=== PATIENT | female | born 1950 | race Caucasian/White ===

== ENCOUNTER 2017-04-25 10:37 | Inpatient (IN) ==
--- NOTE | 2017-04-25 11:00 | Emergency Department Note ---
Disposition Clinical Impression: Pleural effusion, Hypoxemia, Delirium Pneumonia Qualifiers: Pneumonia type: due to unspecified organism Laterality: right Lung location: lower lobe of lung Qualified Code(s): J18.1 - Lobar pneumonia, unspecified organism Disposition: Admitted As Inpatient Condition: Fair Referrals: Justin Chua DO [Primary Care Provider] - Forms: ED Satisfaction Letter Time of Disposition: 12:56 General Adult HPI - General Chief complaint: ED Psychiatric Symptoms Stated complaint: Hallucination Time Seen by Provider: 04/25/17 10:46 Source: patient, family Limitations: no limitations Nursing Notes Reviewed: Yes Vital Signs Reviewed: Yes - History of Present Illness HPI Narrative: Patient is a 67-year-old female who presents to [facility] ED with a chief complaint of seeing things. Patient's family is present with her and is concerned that this has been worsening over the last 3-4 weeks. She has had this for over the last 6 months. Patient has been seeing bugs on her ventilator and then sees and inks there are people who are present who are giving her medications who are not in the house. She has had her daughter-in- law in search of someone hiding in the house. Denies any nausea, vomiting, fever or chills. No difficulty breathing, chest pain, abdominal pain. Patient has had prior urinary tract infections which have caused her to make her see things as well. She was seen by her primary care physician today who was concerned for possible urinary tract infection and had her sent over for evaluation. No history of psychiatric diagnosis. Onset (ago): month(s) Pain Scale: 0 Improves with: nothing Worsens with: nothing Associated symptoms: Reports: confusion, cough (mild). Denies: fever/chills, nausea/vomiting, shortness of breath, weakness Treatments Prior to Arrival: none - Related Data Home Medications Medication Instructions Recorded Confirmed Simvastatin 10 mg PO DAILY 06/18/15 04/25/17 SitaGLIPtin [Januvia] 100 mg PO DAILY 06/18/15 04/25/17 metFORMIN [Glucophage] 1,000 mg PO BIDWM 06/18/15 04/25/17 Amlodipine Besylate 10 mg PO DAILY 04/25/17 04/25/17 Aspirin 325 mg PO DAILY 04/25/17 04/25/17 Bupivacaine 0.5% [Marcaine 0.5%] 0.89 mg IT DAILY 04/25/17 04/25/17 Buspirone HCl [Buspar] 10 mg PO BID 04/25/17 04/25/17 Citalopram Hydrobromide 10 mg PO DAILY 04/25/17 04/25/17 [Citalopram HBr] Furosemide [Lasix] 40 mg PO BID 04/25/17 04/25/17 Ipratropium [place] 2 spr NS BID 04/25/17 04/25/17 Metoprolol [Lopressor] 12.5 mg PO BID 04/25/17 04/25/17 Morphine Sulfate/Pf [Morphine 1.79 mg IT DAILY 04/25/17 04/25/17 IntraThecdal Pump] Nitrofurantoin [Macrodantin] 50 mg PO Q6HR 04/25/17 04/25/17 Potassium Chloride [K-Tab ER] 20 meq PO BID 04/25/17 04/25/17 Venlafaxine XR (24 HR) [Effexor XR] 150 mg PO BID 04/25/17 04/25/17 Allergies Allergy/AdvReac Type Severity Reaction Status Date / Time Sulfa (Sulfonamide Allergy Swelling Verified 06/18/15 11:26 Antibiotics) of Lip/Tongue/Throat All systems ED: reviewed and negative except as stated. Past Medical History - Past Medical History Attestation: Yes The following information was validated with the patient. Source: patient Medical history: Reports: coronary artery disease, diabetes, hypertension, other Surgical history: Reports: hysterectomy Psychiatric history: Reports: depression, panic disorder INTELLIGENCE INTERN history: Reports: no INTELLIGENCE INTERN history - Social History Smoking Status: Never smoker Smokeless Tobacco Status: No Alcohol use: Reports: none Drug use: Reports: none Physical Exam - General Limitations: no limitations General appearance: alert - Head Head exam: atraumatic, normocephalic, normal inspection - Eye Eye exam: Present: normal appearance, PERRL, EOMI - ENT ENT exam: normal exam, normal oropharynx, mucous membranes moist - Neck Neck exam: Present: normal inspection, full ROM, trachea midline - Chest Chest inspection: Present: normal inspection, symmetric chest wall rise - Respiratory Respiratory exam: Present: normal lung sounds bilaterally - Cardiovascular Cardiovascular exam: Present: regular rate, normal rhythm, normal heart sounds - Abdominal Exam Abdominal exam: Present: soft, Non-Tender. Absent: tenderness, distention, guarding, rebound, rigidity - Extremities Exam Extremities exam: Present: normal inspection, full ROM. Absent: tenderness, pedal edema - Back Exam Back exam: Present: normal inspection, full ROM. Absent: tenderness - Neurological Exam Neurological exam: Present: alert. Absent: motor sensory deficit - Psychiatric Psychiatric exam: Present: normal affect, normal mood - Skin Skin exam: Present: warm, dry, intact, normal color Course Course Narrative: Patient seen and examined. Concern for hallucinations. Patient may also have a degree of dementia that is developing. Her course has been worsening over the last several months and particularly over the last several weeks. This may be exacerbated by possible infection. We will check some basic labs, urine analysis, chest x-ray. - Reevaluation(s) Reevaluation #1: Patient's lab work shows anemia the patient is on iron supplementation to help with this. She is hemodynamically stable. Her chest x-ray shows signs of a right-sided pneumonia and right sided pleural effusion. We will place her on IV antibiotics for this. We will give her some Rocephin and azithromycin. Due to patient's hypoxemia with her being at 88% on room air, we will go ahead and admit her for observation. I discussed with hospitalist Dr. Schuster who has accepted her for admission. He would like a flu swab. This has been ordered. Time: 12:58 Vital Signs Temperature 98.8 F 04/25/17 10:40 Pulse Rate 87 04/25/17 10:40 Respiratory Rate 18 04/25/17 10:40 Blood Pressure 145/62 04/25/17 10:40 O2 Sat by Pulse Oximetry 93 04/25/17 10:40 Temperature 98.8 F 04/25/17 10:40 Pulse Rate 87 04/25/17 10:40 Respiratory Rate 18 04/25/17 10:40 Blood Pressure 145/62 04/25/17 10:40 O2 Sat by Pulse Oximetry 93 04/25/17 10:40 Oxygen Delivery Oxygen Delivery Room Air Medical Decision Making - Medical Records Medical records reviewed: Yes I reviewed the patient's medical records. - Lab Data Lab results reviewed: Yes I reviewed the patient's lab results. Result diagrams: 04/25/17 11:11 04/25/17 11:11 Lab Results 04/25/17 04/25/17 Range/Units 11:11 11:11 WBC 7.5 (4.3-11.1) K/mcL RBC 3.75 L (3.82-4.97) M/mcL Hgb 8.2 L (11.5-15.4) g/dL Hct 29.3 L (35.3-44.9) % MCV 78.1 L (83.0-100.0) fL MCH 21.9 L (28.0-33.3) pg MCHC 28.0 L (31.6-35.5) g/dL RDW 18.9 H (11.5-14.5) % Plt Count 388 (140-400) K/mcL MPV 9.5 (9.4-12.4) fL Immature Gran % 0.3 (0-4) % Seg Neutrophils % 70.7 % Lymphocytes % 21.2 % Monocytes % 5.6 % Eosinophils % 1.9 % Basophils % 0.3 % Neutrophils # 5.3 (1.6-8.9) K/mcL Lymphocytes # 1.6 (0.6-4.6) K/mcL Monocytes # 0.4 (0.0-1.3) K/mcL Eosinophils # 0.1 (0.0-0.6) K/mcL Basophils # 0.0 (0.0-0.2) K/mcL Platelet Estimate Normal (Normal) Hypochromasia Present A (Not Present) Anisocytosis 1+ A (Not Present) Sodium 134 L (136-145) mEq/L Potassium 4.1 (3.5-5.1) mEq/L Chloride 98 (98-107) mEq/L Carbon Dioxide 29 (23-29) mEq/L Calcium 9.8 (8.6-10.3) mg/dL - Radiology Data Radiology results reviewed: Yes I reviewed the patient's radiology results. Chest X-Ray 04/25/17 11:12 IMPRESSION: New prominence of the interstitial markings within both lungs which may represent an infectious process versus interstitial edema. New small right pleural effusion which could be secondary to a small right lower lobe pneumonia. D/ / 04/25/2017 11:35:11 Tyrel Epps MD / devi Interpreting Provider: Tyrel Epps MD Chest X-Ray 04/25/17 11:12 IMPRESSION: New prominence of the interstitial markings within both lungs which may represent an infectious process versus interstitial edema. New small right pleural effusion which could be secondary to a small right lower lobe pneumonia. D/ / 04/25/2017 11:35:11 Tyrel Epps MD / devi Interpreting Provider: Tyrel Epps MD Head CT 04/25/17 11:18 IMPRESSION: No acute intracranial abnormality. Diffuse atrophic changes with findings suggesting chronic microvascular ischemia D/ / Devin Alberts MD / Devin Alberts MD Interpreting Provider: Devin Alberts MD
--- NOTE | 2017-04-25 11:18 | Emergency Department Note ---
Disposition Clinical Impression: Pneumonia, Pleural effusion, Hypoxemia, Delirium Disposition: Admitted As Inpatient Condition: Fair General Adult HPI - General Chief complaint: ED Psychiatric Symptoms Stated complaint: Hallucination Time Seen by Provider: 04/25/17 10:46 Source: patient, family Limitations: no limitations Nursing Notes Reviewed: Yes Vital Signs Reviewed: Yes - History of Present Illness Pain Scale: 0 - Related Data Home Medications Medication Instructions Recorded Confirmed Simvastatin 10 mg PO DAILY 06/18/15 04/25/17 SitaGLIPtin [Januvia] 100 mg PO DAILY 06/18/15 04/25/17 metFORMIN [Glucophage] 1,000 mg PO BIDWM 06/18/15 04/25/17 Amlodipine Besylate 10 mg PO DAILY 04/25/17 04/25/17 Aspirin 325 mg PO DAILY 04/25/17 04/25/17 Bupivacaine 0.5% [Marcaine 0.5%] 0.89 mg IT DAILY 04/25/17 04/25/17 Buspirone HCl [Buspar] 10 mg PO BID 04/25/17 04/25/17 Citalopram Hydrobromide 10 mg PO DAILY 04/25/17 04/25/17 [Citalopram HBr] Furosemide [Lasix] 40 mg PO BID 04/25/17 04/25/17 Ipratropium [place] 2 spr NS BID 04/25/17 04/25/17 Metoprolol [Lopressor] 12.5 mg PO BID 04/25/17 04/25/17 Morphine Sulfate/Pf [Morphine 1.79 mg IT DAILY 04/25/17 04/25/17 IntraThecdal Pump] Nitrofurantoin [Macrodantin] 50 mg PO Q6HR 04/25/17 04/25/17 Potassium Chloride [K-Tab ER] 20 meq PO BID 04/25/17 04/25/17 Venlafaxine XR (24 HR) [Effexor XR] 150 mg PO BID 04/25/17 04/25/17 Allergies Allergy/AdvReac Type Severity Reaction Status Date / Time Sulfa (Sulfonamide Allergy Swelling Verified 06/18/15 11:26 Antibiotics) of Lip/Tongue/Throat Past Medical History - Past Medical History Medical history: Reports: coronary artery disease, diabetes, hypertension, other Surgical history: Reports: hysterectomy Psychiatric history: Reports: depression, panic disorder HUMAN RELATIONS PROFESSOR history: Reports: no HUMAN RELATIONS PROFESSOR history - Social History Smoking Status: Never smoker Smokeless Tobacco Status: No Alcohol use: Reports: none Drug use: Reports: none Physical Exam - General Limitations: no limitations General appearance: alert Course Vital Signs Temperature 98.8 F 04/25/17 10:40 Pulse Rate 87 04/25/17 10:40 Respiratory Rate 18 04/25/17 10:40 Blood Pressure 145/62 04/25/17 10:40 O2 Sat by Pulse Oximetry 93 04/25/17 10:40 Temperature 98.2 F 04/25/17 14:55 Pulse Rate 85 04/25/17 14:55 Respiratory Rate 17 04/25/17 14:55 Blood Pressure 116/60 04/25/17 14:55 O2 Sat by Pulse Oximetry 96 04/25/17 14:55 Oxygen Delivery Oxygen Delivery Room Air Medical Decision Making - MDM Narrative Medical decision making narrative: This documentation is done with the assistance of Dragon dictation. Despite efforts made to ensure accuracy, there may be inaccuracies in food and nutrition services supervisor or spelling and typographical errors. I examined this patient and my medical decision-making was reviewed with the Resident Physician. I agree with the documented findings, disposition and treatment plan as described except to the extent set forth below. Patient was seen and evaluated by Dr. Greenberg and myself, I agree with her evaluation and management plan, supervise care the patient's stay. Patient presents today with worsening dementia versus delirium. History of this going on for about 6 months gotten worse or last couple weeks. Also has a history of UTI in the past. She is a little bit of a cough. Check labs urine and a chest x-ray. She does not have any recent trauma does not have any headaches. Does not any acute neuro deficits. Someone hold off on CT at this time and see if she has had a recent CT. Family is in agreement with this plan. Chest X-Ray 04/25/17 11:12 IMPRESSION: New prominence of the interstitial markings within both lungs which may represent an infectious process versus interstitial edema. New small right pleural effusion which could be secondary to a small right lower lobe pneumonia. D/ / 04/25/2017 11:35:11 Tyrel Epps MD / devi Interpreting Provider: Tyrel Epps MD Head CT 04/25/17 11:18 IMPRESSION: No acute intracranial abnormality. Diffuse atrophic changes with findings suggesting chronic microvascular ischemia D/ / Devin Alberts MD / Devin Alberts MD Interpreting Provider: Devin Alberts MD 1154 hrs.: Patient had an EKG performed which shows a sinus rhythm, rate is 84, QRS is 101, QTC is 439, no signs of ischemia, flipped conflict flexes in lead 3 , has an old EKG that was done in 2016 which shows no changes except for rate. 1155 hrs.: We will treat her as a pneumonia. Start her on antibiotics and then discuss with family admission. - Lab Data Result diagrams: 04/25/17 11:11 04/25/17 11:11 Lab Results 04/25/17 04/25/17 04/25/17 Range/Units 11:08 11:11 11:11 WBC 7.5 (4.3-11.1) K/mcL RBC 3.75 L (3.82-4.97) M/mcL Hgb 8.2 L (11.5-15.4) g/dL Hct 29.3 L (35.3-44.9) % MCV 78.1 L (83.0-100.0) fL MCH 21.9 L (28.0-33.3) pg MCHC 28.0 L (31.6-35.5) g/dL RDW 18.9 H (11.5-14.5) % Plt Count 388 (140-400) K/mcL MPV 9.5 (9.4-12.4) fL Immature Gran % 0.3 (0-4) % Seg Neutrophils % 70.7 % Lymphocytes % 21.2 % Monocytes % 5.6 % Eosinophils % 1.9 % Basophils % 0.3 % Neutrophils # 5.3 (1.6-8.9) K/mcL Lymphocytes # 1.6 (0.6-4.6) K/mcL Monocytes # 0.4 (0.0-1.3) K/mcL Eosinophils # 0.1 (0.0-0.6) K/mcL Basophils # 0.0 (0.0-0.2) K/mcL Platelet Estimate Normal (Normal) Hypochromasia Present A (Not Present) Anisocytosis 1+ A (Not Present) Sodium 134 L (136-145) mEq/L Potassium 4.1 (3.5-5.1) mEq/L Chloride 98 (98-107) mEq/L Carbon Dioxide 29 (23-29) mEq/L BUN 18 (8-23) mg/dL Creatinine 0.72 (0.60-1.20) mg/dL Est GFR ( Amer) > 60 (> 60) Est GFR (Non-Af Amer) > 60 (> 60) BUN/Creatinine Ratio 25 (6-26) Glucose 159 H (70-105) mg/dL Calculated Osmolality 283 (280-300) Calcium 9.8 (8.6-10.3) mg/dL Iron 44 L (50-170) mcg/dL % Saturation 9 L (15-50) % Transferrin 341 (203-362) mg/dL Ferritin 43 (10-120) ng/ml B-Natriuretic Peptide (Less than 100) pg/mL Vitamin B12 (250-1100) pg/mL Folate (3.0-16.0) ng/mL TSH 2.216 (0.340-5.600) mcIU/mL Urine Color Yellow (Yellow) Urine Clarity Clear (Clear) Urine pH 6.5 (5.0-8.0) pH Units Ur Specific [place] 1.015 (1.010-1.025) Urine Protein Negative (Neg-Trace) mg/dL Urine Glucose (UA) Normal (Normal) mg/dL Urine Ketones Negative (Negative) mg/dL Urine Blood Negative (Negative) Urine Nitrite Negative (Negative) Urine Bilirubin Negative (Negative) Urine Urobilinogen Normal (Normal) mg/dL Ur Leukocyte Esterase Negative (Negative) Ur Culture Indicated? NO (NO) 04/25/17 04/25/17 Range/Units 11:11 11:11 WBC (4.3-11.1) K/mcL RBC (3.82-4.97) M/mcL Hgb (11.5-15.4) g/dL Hct (35.3-44.9) % MCV (83.0-100.0) fL MCH (28.0-33.3) pg MCHC (31.6-35.5) g/dL RDW (11.5-14.5) % Plt Count (140-400) K/mcL MPV (9.4-12.4) fL Immature Gran % (0-4) % Seg Neutrophils % % Lymphocytes % % Monocytes % % Eosinophils % % Basophils % % Neutrophils # (1.6-8.9) K/mcL Lymphocytes # (0.6-4.6) K/mcL Monocytes # (0.0-1.3) K/mcL Eosinophils # (0.0-0.6) K/mcL Basophils # (0.0-0.2) K/mcL Platelet Estimate (Normal) Hypochromasia (Not Present) Anisocytosis (Not Present) Sodium (136-145) mEq/L Potassium (3.5-5.1) mEq/L Chloride (98-107) mEq/L Carbon Dioxide (23-29) mEq/L BUN (8-23) mg/dL Creatinine (0.60-1.20) mg/dL Est GFR ( Amer) (> 60) Est GFR (Non-Af Amer) (> 60) BUN/Creatinine Ratio (6-26) Glucose (70-105) mg/dL Calculated Osmolality (280-300) Calcium (8.6-10.3) mg/dL Iron (50-170) mcg/dL % Saturation (15-50) % Transferrin (203-362) mg/dL Ferritin (10-120) ng/ml B-Natriuretic Peptide 294 H (Less than 100) pg/mL Vitamin B12 458 (250-1100) pg/mL Folate 16.7 H (3.0-16.0) ng/mL TSH (0.340-5.600) mcIU/mL Urine Color (Yellow) Urine Clarity (Clear) Urine pH (5.0-8.0) pH Units Ur Specific [place] (1.010-1.025) Urine Protein (Neg-Trace) mg/dL Urine Glucose (UA) (Normal) mg/dL Urine Ketones (Negative) mg/dL Urine Blood (Negative) Urine Nitrite (Negative) Urine Bilirubin (Negative) Urine Urobilinogen (Normal) mg/dL Ur Leukocyte Esterase (Negative) Ur Culture Indicated? (NO)
[2017-04-25 11:20] LABS: Basophils % 0.3 %
[2017-04-25 11:21] LABS: Eosinophils # 0.1 K/mcL (0.0-0.6); Eosinophils % 1.9 %; Hematocrit 29.3 % (35.3-44.9); Hemoglobin 8.2 g/dL (11.5-15.4); Immature Granulocytes % 0.3 % (0-4); Lymphocytes # 1.6 K/mcL (0.6-4.6); Lymphocytes % 21.2 %; Mean Corpuscular Hemoglobin 21.9 pg (28.0-33.3); Mean Corpuscular Volume 78.1 fL (83.0-100.0); Mean Platelet Volume 9.5 fL (9.4-12.4); Monocytes # 0.4 K/mcL (0.0-1.3); Monocytes % 5.6 %; Neutrophils # 5.3 K/mcL (1.6-8.9); Platelet Count 388 K/mcL (140-400); Red Blood Count 3.75 M/mcL (3.82-4.97); Red Cell Distribution Width 18.9 % (11.5-14.5); Segmented Neutrophils % 70.7 %
[2017-04-25 11:24] LABS: Anisocytosis 1+ (Not Present); Hypochromasia Present (Not Present); Platelet Estimate Normal (Normal)
[2017-04-25 11:33] LABS: Calcium 9.8 mg/dL (8.6-10.3); Carbon Dioxide 29 mEq/L (23-29); Chloride 98 mEq/L (98-107); Potassium 4.1 mEq/L (3.5-5.1); Sodium 134 mEq/L (136-145)
[2017-04-25 11:34] LABS: Bilirubin,Urine Negative (Negative); Blood,Urine Negative (Negative); Clarity,Urine Clear (Clear); Color,Urine Yellow (Yellow); Glucose,Urine (UA) Normal (Normal); Ketones,Urine Negative (Negative); Leukocyte Esterase,Urine Negative (Negative); Nitrite,Urine Negative (Negative); PH,Urine 6.5 pH Units (5.0-8.0); Protein,Urine Negative (Neg-Trace); Specific Gravity,Urine 1.015 (1.010-1.025); Urobilinogen,Urine Normal (Normal)
[2017-04-25 11:38] LABS: BUN/Creatinine Ratio 25 (6-26); Blood Urea Nitrogen 18 mg/dL (8-23); Glucose 159 mg/dL (70-105); Osmolality,Calculated 283 (280-300); eGFR For African Americans > 60 (> 60); eGFR For Non-African Americans > 60 (> 60)
[2017-04-25] MEDS ORDERED: cefTRIAXone 1,000 MG in Water for inj. (sterile) 20 ML 10 ML IVP ONE (11:41)
[2017-04-25] MEDS ORDERED: Azithromycin 500 MG in D5% in Water 250 ML IVPB ONE (11:43)
[2017-04-25] MEDS ORDERED: Ipratropium/Albuterol Neb 3 ML IH ONE (11:51)
[2017-04-25] MEDS ORDERED: Dextrose Gel 15 GM/37.5 ML TUBE PO PRN ×4 (12:48→15:00)
[2017-04-25] MEDS ORDERED: *HR* Dextrose 50 % in Water (Syg) 50 ML SYRINGE IVP PRN ×2 (12:48→15:00)
[2017-04-25] MEDS ORDERED: D5% in Water 1,000 ML IVC PRN ×2 (12:48→15:00)
--- NOTE | 2017-04-25 12:53 | Internal Med History&Physical ---
Date of Encounter: 04/26/17 Time of Encounter: 12:51 Assessment and Plan (1) Acute on chronic respiratory failure with hypoxemia Current visit: Yes Status: Acute Possibly from pneumonia with some component of CHF due to finding of pleural effusions. We will admit the patient and treat for pneumonia/acute bronchitis/ pleural effusion. Treatment will be as below. (2) Pneumonia Current visit: Yes Status: Acute We will start the patient on Levaquin. Rule out influenza. Check urine strep and Legionella. The patient is on CPAP at night and is on intermittent 2 L O2 via nasal cannula at home. She was 88% on room air. We will apply oxygen as needed and wean down as tolerated. We will add nebulizers. Follow-up on blood cultures. Check sputum culture if possible. Qualifiers: Pneumonia type: due to unspecified organism Laterality: right Lung location: lower lobe of lung Qualified Code(s): J18.1 - Lobar pneumonia, unspecified organism (3) Pleural effusion Current visit: Yes Status: Acute Patient is on Lasix at home. Says she was put on it for some pleural effusions in the past. Unsure of history of CHF. Will check BNP. Check an echocardiogram. Will give a dose of 40 mg IV Lasix and evaluate in the morning for more. (4) Acute encephalopathy Current visit: Yes Status: Acute Patient seems to have had similar presentation in the past due to infectious etiology. We will continue to monitor and treat causes as above. Check TSH, vitamin B12 as well. CT head was unremarkable. I did explain to the daughters that since the symptoms have been going on for months, that it would be best if she saw a neurologist and get formal testing for dementia. I did tell them that we will treat her infection for now but they should not expect complete resolution of mental status over the next 2 days while she is here. The patient is alert to name, place, month, and year but not exact date. (5) Anemia Current visit: Yes Status: Acute Hemoglobin 8.2 today. Usually it gets around 10-11. No signs of bleeding. Check stools FOBT. Check iron studies. Hemodynamically stable. Qualifiers: Anemia type: unspecified type Qualified Code(s): D64.9 - Anemia, unspecified (6) Diabetes mellitus Current visit: No Status: Chronic We will start the patient insulin sliding scale. Continue with Accu-Cheks. Diabetic diet. 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 UA is clean here. Levaquin should cover either way Qualifiers: Urinary tract infection type: acute cystitis Hematuria presence: without hematuria Qualified Code(s): N30.00 - Acute cystitis without hematuria (10) DVT prophylaxis Current visit: Yes Status: Acute Heparin subcutaneous Internal Medicine - H&P: HPI Chief complaint: Delirium Admitted From: Home Plans for Post Hospital Care: Home History of present illness: Ms. Hughes is a 67 year old female with history of diabetes, hypertension, pleural effusions, hyperlipidemia, anxiety presents to [facility] ED with a chief complaint of seeing things. This seems to have been a chronic issue but family thinks it is worse now. They describe hallucination such as seeing bugs on her CPAP at home and seeing people not present in the room. She has had her [id number] in search of someone hiding in the house. No reported fever, chills, headache, blurry vision, nausea, vomiting, abdominal pain, chest pain, urinary symptoms, or neurological symptoms. When the patient presented to the ED she was noted to be hypoxic with sats of 88% on room air. She was put on 2 L to 4 L of nasal cannula oxygen with a sats jumping up to the upper 90s. Patient of note recently (in February 2017) had a bioprosthetic mitral valve replacement done in [place] and at the time needed aggressive diuresis. Family is unsure if she carries a diagnosis of CHF but she takes lasix. Her workup was mostly unremarkable but was found to have infiltrates as well as some interstitial edema and a small right plural effusion on the chest x-ray. She was given antibiotics in the ED for possible pneumonia. The patient is being admitted for acute delirium possibly from an infectious etiology. Past Med Surg Social Fam HX - Past Medical History Medical history: coronary artery disease, diabetes, hypertension, other Psychiatric history: depression, panic disorder - Past Surgical History Surgical History: hysterectomy - Social History Smoking Status: Never smoker Smokeless Tobacco Status: No Alcohol use: none Drug use: none - Family History Mother Living Status: Hx Family Cardiac Disorders: Yes Hx Family Endocrine Disorder: Yes Father Living Status: Hx Family Cancer: Yes Internal Medicine - H&P: Meds Simvastatin 10 mg PO DAILY 06/18/15 [History] SitaGLIPtin [Januvia] 100 mg PO DAILY 06/18/15 [History] metFORMIN [Glucophage] 1,000 mg PO BIDWM 06/18/15 [History] Amlodipine Besylate 10 mg PO DAILY 04/25/17 [History] Aspirin 325 mg PO DAILY 04/25/17 [History] Bupivacaine 0.5% [Marcaine 0.5%] 0.89 mg IT DAILY 04/25/17 [History] Buspirone HCl [Buspar] 10 mg PO BID 04/25/17 [History] Citalopram Hydrobromide [Citalopram HBr] 10 mg PO DAILY 04/25/17 [History] Furosemide [Lasix] 40 mg PO BID 04/25/17 [History] Ipratropium [place] 2 spr NS BID 04/25/17 [History] Metoprolol [Lopressor] 12.5 mg PO BID 04/25/17 [History] Morphine Sulfate/Pf [Morphine IntraThecdal Pump] 1.79 mg IT DAILY 04/25/17 [ History] Nitrofurantoin [Macrodantin] 50 mg PO Q6HR 04/25/17 [History] Potassium Chloride [K-Tab ER] 20 meq PO BID 04/25/17 [History] Venlafaxine XR (24 HR) [Effexor XR] 150 mg PO BID 04/25/17 [History] 3 Allergy/AdvReac Type Severity Reaction Status Date / Time Sulfa (Sulfonamide Allergy Swelling Verified 06/18/15 11:26 Antibiotics) of Lip/Tongue/Throat All Systems PM: A 10-system review of systems was performed and is negative for pertinent findings except as documented above in the HPI. Review of systems: All systems reviewed are negative except as mentioned above. - Constitutional Vitals: Temp Pulse Resp BP Pulse Ox 98.8 F 87 18 145/62 93 04/25/17 10:40 04/25/17 10:40 04/25/17 10:40 04/25/17 10:40 04/25/17 10:40 Exam: GEN: NAD. A/O x2 HEENT: AT, NC, No cyanosis, oral mucosa is moist, No JVD Lymphatics: No lymphadenoapthy Eyes: Extrocular muscles intact, anicteric CVS:RRR. S1, S2, No m/r/g RESP: bibasilar crackles. ABD: Soft, NT, ND, +BS EXT: trace edema, No rashes, 2+ DP NEURO: Nonfocal, CN II-XII intact, No focal motor or sensory deficits Psych: Cooperative, Not anxious or depressed Internal Med - H&P Results - Labs CBC & Chem 7: 04/25/17 11:11 04/25/17 11:11 Labs: Short CBC 04/25/17 Range/Units 11:11 WBC 7.5 (4.3-11.1) K/mcL Hgb 8.2 L (11.5-15.4) g/dL Hct 29.3 L (35.3-44.9) % Plt Count 388 (140-400) K/mcL Neutrophils # 5.3 (1.6-8.9) K/mcL BMP 04/25/17 11:11 Sodium 134 L Potassium 4.1 Chloride 98 Carbon Dioxide 29 BUN 18 Creatinine 0.72 Glucose 159 H Calcium 9.8 Urine 04/25/17 Range/Units 11:08 Urine Color Yellow (Yellow) Urine Clarity Clear (Clear) Urine pH 6.5 (5.0-8.0) pH Units Ur Specific [place] 1.015 (1.010-1.025) Urine Protein Negative (Neg-Trace) mg/dL Urine Glucose (UA) Normal (Normal) mg/dL - Impressions ITS Impressions Chest X-Ray 04/25/17 11:12 IMPRESSION: New prominence of the interstitial markings within both lungs which may represent an infectious process versus interstitial edema. New small right pleural effusion which could be secondary to a small right lower lobe pneumonia. D/ / 04/25/2017 11:35:11 Tyrel Epps MD / devi Interpreting Provider: Tyrel Epps MD Head CT 04/25/17 11:18 IMPRESSION: No acute intracranial abnormality. Diffuse atrophic changes with findings suggesting chronic microvascular ischemia D/ / Devin Alberts MD / Devin Alberts MD Interpreting Provider: Devin Alberts MD
[2017-04-25] MEDS ORDERED: Ipratropium/Albuterol Neb 3 ML IH PRN (12:54)
[2017-04-25] MEDS ORDERED: Furosemide 40 MG/4 ML VIAL IVP ONE (12:58)
[2017-04-25] MEDS ORDERED: *HR* HYDROcodone/Acet 5/325 mg TABLET PO PRN (13:02)
[2017-04-25] MEDS ORDERED: Naloxone 0.4 MG/ML INJ IVP PRN (13:02)
[2017-04-25] MEDS ORDERED: Acetaminophen 325 MG TABLET PO PRN (13:02)
[2017-04-25 14:07] LABS: Thyroid Stimulating Hormone 2.216 mcIU/mL (0.340-5.600)
--- NOTE | 2017-04-25 16:11 | Electrocardiograph Report ---
[facility] Test Date: 2017-04-25 Pat Name: Nilda Hughes Department: 102 Room: 2A22 Gender: F Senior Geologist: Raphael : 1950 Requested By: Terrance Berumen Order Number: [id number] Reading MD: Enzo Murillo DO Measurements Intervals [place] Rate: 84 P: 59 ND: 200 QRS: -17 QRSD: 101 T: 54 QT: 398 QTc: 439 Interpretive Statements SINUS RHYTHM Electronically Signed On 04-25-2017 16:10:05 EST by Enzo Murillo DO
[2017-04-25] MEDS: *HR* Heparin 5,000 UNIT/ML VIAL SQ SCH ×2 (16:53→20:39)
[2017-04-25] MEDS: Insulin LISPRO 300 UNITS/3 ML VIAL SQ SCH ×2 (16:54→20:38)
[2017-04-25 16:59] LABS: % Iron Saturation 9 % (15-50); Ferritin 43 ng/ml (10-120); Iron 44 mcg/dL (50-170); Transferrin 341 mg/dL (203-362)
[2017-04-25 17:04] LABS: Folate 16.7 ng/mL (3.0-16.0)
[2017-04-25] MEDS: Venlafaxine XR (24 HR) 150 MG CAP.ER.24H PO SCH (19:53)
[2017-04-26] MEDS: *HR* Heparin 5,000 UNIT/ML VIAL SQ SCH (04:34)
[2017-04-26 04:40] LABS: Basophils % 0.4 %
[2017-04-26 04:42] LABS: Eosinophils # 0.2 K/mcL (0.0-0.6); Eosinophils % 1.8 %; Hematocrit 26.3 % (35.3-44.9); Hemoglobin 7.6 g/dL (11.5-15.4); Immature Granulocytes % 0.4 % (0-4); Lymphocytes # 2.1 K/mcL (0.6-4.6); Lymphocytes % 24.7 %; Mean Corpuscular HGB Conc 28.9 g/dL (31.6-35.5); Mean Corpuscular Hemoglobin 22.1 pg (28.0-33.3); Mean Corpuscular Volume 76.5 fL (83.0-100.0); Monocytes # 0.6 K/mcL (0.0-1.3); Monocytes % 6.9 %; Neutrophils # 5.5 K/mcL (1.6-8.9); Nucleated Red Blood Cells 0.2 /100 WBC (0); Platelet Count 378 K/mcL (140-400); Red Blood Count 3.44 M/mcL (3.82-4.97); Red Cell Distribution Width 18.9 % (11.5-14.5); Segmented Neutrophils % 65.8 %
[2017-04-26 04:45] LABS: BUN/Creatinine Ratio 23 (6-26); Blood Urea Nitrogen 14 mg/dL (8-23); Calcium 9.4 mg/dL (8.6-10.3); Carbon Dioxide 30 mEq/L (23-29); Chloride 98 mEq/L (98-107); Glucose 107 mg/dL (70-105); Magnesium 2.1 mg/dL (1.6-2.6); Osmolality,Calculated 281 (280-300); Potassium 3.9 mEq/L (3.5-5.1); Sodium 135 mEq/L (136-145); eGFR For African Americans > 60 (> 60); eGFR For Non-African Americans > 60 (> 60)
[2017-04-26 05:19] LABS: Anisocytosis 1+ (Not Present); Polychromasia 1+ (Not Present); Stomatocytes 1+ (Not Present)
--- NOTE | 2017-04-26 07:35 | Internal Med Progress Note ---
Date of Encounter: 04/26/17 Time of Encounter: 10:30 - Assessment and plan (1) Acute on chronic respiratory failure with hypoxemia Current Visit: Yes Status: Acute Assessment and plan: Continue O2 supplementation. Treat underlying pneumonia. Wean FiO2 as tolerated. (2) Pneumonia Current Visit: Yes Status: Acute Assessment and plan: With parapneumonic effusion. Cultures are negative so far. WBC count remains normal. Urine strep and Legionella antigens are negative. Continue levofloxacin. Clinically patient is feeling better. Will repeat chest x-ray in 3-4 weeks to look for resolution of both pneumonia and effusion. Qualifiers: Pneumonia type: due to unspecified organism Laterality: right Lung location: lower lobe of lung Qualified Code(s): J18.1 - Lobar pneumonia, unspecified organism (3) Acute encephalopathy Current Visit: Yes Status: Acute Assessment and plan: Improved. Likely due to underlying infection (4) Anemia Current Visit: Yes Status: Suspected Assessment and plan: Anemia. Hemoglobin 7.6. Suspected iron deficiency. We will check stool for occult blood. Consult GI. Patient underwent colonoscopy several years back and had polyps. Has not had any follow-up since then. Denies any melena or hematemesis. B12 and folic acid levels within normal limits. Qualifiers: Anemia type: iron deficiency Iron deficiency anemia type: chronic blood loss Qualified Code(s): D50.0 - Iron deficiency anemia secondary to blood loss (chronic) (5) Diabetes mellitus Current Visit: Yes Status: Chronic Assessment and plan: Better control. Continue diabetic diet. Monitor blood sugars. Sliding scale insulin. Qualifiers: Diabetes mellitus type: type 2 Diabetes mellitus complication status: without complication Diabetes mellitus halfway insulin use: without joint terminal attack controller use Qualified Code(s): E11.9 - Type 2 diabetes mellitus without complications (6) H/O heart valve replacement with bioprosthetic valve Current Visit: Yes Status: Acute (7) Hypertension Current Visit: Yes Status: Chronic Assessment and plan: Blood pressure is well controlled. Qualifiers: Hypertension type: essential hypertension Qualified Code(s): I10 - Essential (primary) hypertension (8) DVT prophylaxis Current Visit: Yes Status: Acute Assessment and plan: Has been On subcutaneous heparin. We will hold at this time for possible GI bleed. Place patient on SCDs. (9) Pleural effusion Current Visit: Yes Status: Acute Assessment and plan: Possible parapneumonic effusion. Small effusion not to thoracentesis at this time. Would recommend follow-up with x-ray in 3-4 weeks to look for resolution. (10) UTI (urinary tract infection) Current Visit: Yes Status: Resolved Assessment and plan: Urinalysis shows no signs of infection. Patient was treated with Macrobid previously. Has completed treatment course. Qualifiers: Urinary tract infection type: acute cystitis Hematuria presence: without hematuria Qualified Code(s): N30.00 - Acute cystitis without hematuria - Subjective Interval history: Patient feels better today. Denies any hematemesis or melena. No nausea or vomiting. No fever or chills. Shortness of breath is improving. Does continue to have cough. - Constitutional Vitals: Temp Pulse Resp BP Pulse Ox 98.1 F 96 20 133/71 92 04/26/17 06:59 04/26/17 06:59 04/26/17 06:59 04/26/17 06:59 04/26/17 06:59 General appearance: Present: cooperative, A&O X 3, pleasant, answers questions appropriately - Cardiovascular Cardiovascular exam: Present: RRR, +S1, +S2. Absent: diastolic murmur, gallop, rubs, systolic murmur - GI/Abdominal GI/Abdominal exam: Present: normal bowel sounds, soft, no peritoneal signs. Absent: distended, tenderness - Extremities Exam Extremities exam: Present: warm, radial pulses palpable and symmetrical. Absent : calf tenderness, cyanotic, pedal edema - Neurological Exam Neurological exam: Present: CN II-XII intact, oriented X3, no focal deficits. Absent: pronater drift, facial droop, speech deficit - Skin Skin exam: Present: dry, intact, pallor Internal Medicine: Result - Labs CBC & Chem 7: 04/26/17 03:44 04/26/17 03:44 Labs: Short CBC 04/26/17 Range/Units 03:44 WBC 8.3 (4.3-11.1) K/mcL Hgb 7.6 L (11.5-15.4) g/dL Hct 26.3 L (35.3-44.9) % Plt Count 378 (140-400) K/mcL Neutrophils # 5.5 (1.6-8.9) K/mcL BMP 04/26/17 03:44 Sodium 135 L Potassium 3.9 Chloride 98 Carbon Dioxide 30 H BUN 14 Creatinine 0.61 Glucose 107 H Calcium 9.4 Consult Discharge Plan - Plan Referrals: Justin Chua DO [Primary Care Provider] -
[2017-04-26] MEDS: Insulin LISPRO 300 UNITS/3 ML VIAL SQ SCH ×4 (08:36→21:18)
[2017-04-26] MEDS: amLODIPine 5 MG TABLET PO SCH (09:20)
[2017-04-26] MEDS: Venlafaxine XR (24 HR) 150 MG CAP.ER.24H PO SCH ×2 (09:21→21:16)
[2017-04-26] MEDS: Aspirin 325 MG TABLET PO SCH (09:22)
[2017-04-26] MEDS: Levofloxacin 500 MG/100 ML 500 MG/100 ML BAG IVPB SCH (09:22)
[2017-04-26] MEDS ORDERED: Patient Taking Own Medication 1 EACH PO SCH (09:45)
[2017-04-26 16:54] LABS: Hematocrit 28.4 % (35.3-44.9)
[2017-04-26] MEDS ORDERED: Polyethylene Glycol 3350 255 GM POWDER PO ONE (17:00)
[2017-04-26] MEDS: Furosemide 40 MG TABLET PO SCH (21:18)
[2017-04-26 22:36] LABS: Hematocrit 27.4 % (35.3-44.9); Hemoglobin 7.9 g/dL (11.5-15.4)
[2017-04-27 04:19] LABS: Basophils % 0.4 %; Hemoglobin 8.4 g/dL (11.5-15.4); Immature Granulocytes % 0.3 % (0-4); Red Blood Count 3.82 M/mcL (3.82-4.97); Red Cell Distribution Width 18.9 % (11.5-14.5)
[2017-04-27 04:21] LABS: Eosinophils # 0.1 K/mcL (0.0-0.6); Eosinophils % 1.8 %; Hematocrit 29.3 % (35.3-44.9); Lymphocytes # 1.7 K/mcL (0.6-4.6); Lymphocytes % 25.7 %; Mean Corpuscular HGB Conc 28.7 g/dL (31.6-35.5); Mean Corpuscular Volume 76.7 fL (83.0-100.0); Mean Platelet Volume 9.7 fL (9.4-12.4); Monocytes # 0.5 K/mcL (0.0-1.3); Monocytes % 6.9 %; Platelet Count 406 K/mcL (140-400); Segmented Neutrophils % 64.9 %
[2017-04-27 04:23] LABS: Neutrophils # 4.4 K/mcL (1.6-8.9)
[2017-04-27 04:37] LABS: BUN/Creatinine Ratio 18 (6-26); Blood Urea Nitrogen 11 mg/dL (8-23); Carbon Dioxide 28 mEq/L (23-29); Chloride 98 mEq/L (98-107); Glucose 152 mg/dL (70-105); Osmolality,Calculated 280 (280-300); Sodium 134 mEq/L (136-145); eGFR For African Americans > 60 (> 60); eGFR For Non-African Americans > 60 (> 60)
[2017-04-27 05:10] LABS: Hypochromasia Present (Not Present)
[2017-04-27 05:11] LABS: Anisocytosis 1+ (Not Present); Platelet Estimate Normal (Normal); Poikilocytosis 1+ (Not Present)
[2017-04-27] MEDS ORDERED: Lidocaine -MPF 2% 2 ML VIAL ONE (07:51)
--- NOTE | 2017-04-27 08:00 | Anesthesia Evaluation PreOp ---
Date of Encounter: 04/27/17 Time of Encounter: 07:58 - Past History Planned Operation: EGD and colonoscopy Cardiac History: HTN, Cardiac Surgery (CAD s/p CABG 8wks ago), Other ( EV/EV echocardiogram Impressions: LVEF 60-65%. Normal LV chamber size , wall thickness and function. Atypical septal motion consistent with post- operative status. Indeterminate diastolic function. Normal right ventricular structure and function. Severely dilated left atrium. Biprosthetic aortic valve replacement per reports, which appears well seated. Leaflets not well visualized. No significant prosthetic stenosis. Mean gradient 14 mmHg. No aortic regurgitation. Severe mitral annular calcification. Not documented, but cannot exclude prior surgical correction of mitral valve. No mitral regurgitation. Severe mitral stenosis. Mean gradient 14 mmHg (HR 95). No evidence of pulmonary hypertension. No previous echocardiograms for comparison.) Pulmonary History: IESHA Dx DIRECTOR DANCE History: Denies Any Significant HX Other Medical History: Diabetes Type II Anesthesia History: No Prior Anesthetic Complications, Past Anesthesia (btl, hysterect, hemorrhoid, cholecyst, bladder, ctr, b tka, turb)CABG) Alcohol Use: none Drug use: none Medications and Allergies Simvastatin 10 mg PO DAILY 06/18/15 [History] SitaGLIPtin [Januvia] 100 mg PO DAILY 06/18/15 [History] metFORMIN [Glucophage] 1,000 mg PO BIDWM 06/18/15 [History] Amlodipine Besylate 10 mg PO DAILY 04/25/17 [History] Aspirin 325 mg PO DAILY 04/25/17 [History] Bupivacaine 0.5% [Marcaine 0.5%] 0.89 mg IT DAILY 04/25/17 [History] Buspirone HCl [Buspar] 10 mg PO BID 04/25/17 [History] Citalopram Hydrobromide [Citalopram HBr] 10 mg PO DAILY 04/25/17 [History] Furosemide [Lasix] 40 mg PO BID 04/25/17 [History] Ipratropium [place] 2 spr NS BID 04/25/17 [History] Metoprolol [Lopressor] 12.5 mg PO BID 04/25/17 [History] Morphine Sulfate/Pf [Morphine IntraThecdal Pump] 1.79 mg IT DAILY 04/25/17 [ History] Nitrofurantoin [Macrodantin] 50 mg PO Q6HR 04/25/17 [History] Potassium Chloride [K-Tab ER] 20 meq PO BID 04/25/17 [History] Venlafaxine XR (24 HR) [Effexor XR] 150 mg PO BID 04/25/17 [History] 3 Allergy/AdvReac Type Severity Reaction Status Date / Time Sulfa (Sulfonamide Allergy Swelling Verified 06/18/15 11:26 Antibiotics) of Lip/Tongue/Throat - Meds/Allergy Pre-op Review Medications Reviewed: Yes Allergies Reviewed: Yes Beta Blockers on Current Med List: No Anesthesia Results - Labs 04/27/17 03:59 04/27/17 03:59 - Imaging EKG: report reviewed (SR) Anesthesia Exam Vital Signs/O2 Sat, Most Current Temp Pulse Resp BP Pulse Ox 99.1 F 98 18 161/77 97 04/27/17 07:42 04/27/17 07:42 04/27/17 07:42 04/27/17 07:42 04/27/17 07:42 Height: 1.75m Weight: 92kg NPO (# of Hours): >8 - HEENT Pupil (Motor): Pupils equal, EOMI Mallampati: II Teeth: Edentulous (upper) Oral Opening: Greater than 3 - DIRECTOR DANCE LOC: Oriented DIRECTOR DANCE Motor: Normal RUE, Normal LUE, Normal RLE, Normal LLE, Normal Face DIRECTOR DANCE Sensory: Normal: RUE, LUE, RLE, LLE, Face - Cardiac Rhythm: Regular - Pulmonary Breath Sounds: bilateral Clear Respiratory Effort: Symmetrical Anesthesia Assess/Plan ASA Score: 3 Modified Mason Scale for Level of Consciousness: Cooperative, oriented, and tranquil Anesthetic Plan: MAC Monitoring Plan: Standard Monitors Recovery Plan: PACU
[2017-04-27] MEDS ORDERED: *HR* Propofol 200 MG/20 ML VIAL IVP ONE (08:12)
[2017-04-27] MEDS ORDERED: MORPHINE SULFATE MC SCH (09:00)
[2017-04-27] MEDS ORDERED: BUPIVACAINE MC SCH (09:00)
[2017-04-27] MEDS: Insulin LISPRO 300 UNITS/3 ML VIAL SQ SCH ×4 (09:08→20:48)
[2017-04-27] MEDS: Aspirin 325 MG TABLET PO SCH (09:17)
[2017-04-27] MEDS: Furosemide 40 MG TABLET PO SCH ×2 (09:18→16:07)
[2017-04-27] MEDS: amLODIPine 5 MG TABLET PO SCH (09:18)
[2017-04-27] MEDS: Venlafaxine XR (24 HR) 150 MG CAP.ER.24H PO SCH ×2 (09:19→20:49)
[2017-04-27] MEDS: Levofloxacin 500 MG/100 ML 500 MG/100 ML BAG IVPB SCH (09:20)
[2017-04-27] MEDS: Patient Taking Own Medication 1 EACH MC SCH (09:50)
--- NOTE | 2017-04-27 11:36 | Gastroenterology Consult Note ---
<Devin Bedoya - Last Filed: 04/27/17 11:55> Date of Encounter: 04/27/17 Time of Encounter: 10:00 - Assessment and plan (1) Anemia Status: Suspected Assessment and plan: Hgb 8.2 on admission and dropped to 7.6. Today Hgb is 8.4 with MCV 76.7, iron 44, and ferritin 43. Continue to monitor CBC and transfuse PRBC as needed. EGD completed this morning with LA grade a reflux esophagitis, chronic gastritis, and NSAID gastropathy. Colonoscopy was attempted but visualization was precluded due to presence of large amount of stool. Plan to repeat colonoscopy. Qualifiers: Anemia type: iron deficiency Iron deficiency anemia type: chronic blood loss Qualified Code(s): D50.0 - Iron deficiency anemia secondary to blood loss (chronic) (2) Pneumonia Status: Acute Assessment and plan: Management per primary team. Qualifiers: Pneumonia type: due to unspecified organism Laterality: right Lung location: lower lobe of lung Qualified Code(s): J18.1 - Lobar pneumonia, unspecified organism (3) Acute encephalopathy Status: Acute Assessment and plan: Improved. Management per primary team. - Time Spent With Patient Total time spent is greater than 50% in coordination of care (as documented) at patient's floor/unit and/or counseling patient: GI History of Present Illness - Data of Consult Patient: new to practice Consult date: 04/27/17 Requesting Physician: Darrel Marrufo MD - Consult Narrative Reason for consult: anemia History of present illness: Ms. Hughes is a 67 year old female with PMHx of CAD, DM, HTN, who presented to the ED with c/o of seeing things. This seems to have been a chronic issue but family thinks it is worse now. They describe hallucination such as seeing bugs on her CPAP at home and seeing people not present in the room. She has had her [id number] in search of someone hiding in the house. No fevers, chills, headache, chest pain, abdominal pain, nausea, vomiting, diarrhea, melena, or hematochezia. The patient was admitted for acute delirium possibly from an infectious etiology. We have been consulted to evaluate her anemia. Hgb 8.2 on admission and dropped to 7.6. Today Hgb is 8.4 with MCV 76.7, iron 44, and ferritin 43. Procedures: Colonoscopy 03/25/2001 Dr. Shaver: Nonspecific inflammation NSAIDs: ASA Anticoagulation: None Past Med Surg Social Fam HX - Past Medical History Medical history: coronary artery disease, diabetes, hypertension, other Psychiatric history: depression, panic disorder - Past Surgical History Surgical History: hysterectomy - Social History Smoking Status: Never smoker Smokeless Tobacco Status: No Alcohol use: none Drug use: none - Family History Mother Living Status: Hx Family Cardiac Disorders: Yes Hx Family Endocrine Disorder: Yes Father Living Status: Hx Family Cancer: Yes - Gastrointestinal Gastrointestinal: Present: as per HPI - Constitutional Constitutional: as per HPI - EENT Eyes: as per HPI Ears: Present: as per HPI Nose, mouth and throat: Present: as per HPI - Cardiovascular Cardiovascular ROS: Present: as per HPI - Respiratory Respiratory IM: Present: as per HPI - Genitourinary Genitourinary: Absent: change in color, Urinary frequency - Neurological ROS Neurological GI: Present: as per HPI - Hematologic/Lymphatic Hematologic/Lymphatic pediatric: Present: as per HPI - Musculoskeletal Musculoskeletal ROS GI: Present: as per HPI - Integumentary Integumentary GI: Present: as per HPI - Psychiatric ROS Psychiatric GI: Present: as per HPI - Endocrine Endocrine IM: Present: as per HPI - Constitutional Vitals: Temp Pulse Resp BP Pulse Ox 98.9 F 82 16 120/55 98 04/27/17 11:09 04/27/17 11:09 04/27/17 11:09 04/27/17 11:09 04/27/17 11:09 General appearance: Present: cooperative, A&O X 3, no acute distress, answers questions appropriately - Head Head exam: Present: atraumatic, normocephalic - Eye Eye exam: Present: normal appearance, sclera anicteric - ENT ENT exam: Present: mucous membranes moist - Neck Neck exam general surgery: Present: normal inspection, trachea midline - Respiratory Respiratory exam: Present: decreased breath sounds, CTAB - Cardiovascular Cardiovascular exam: Present: RRR, +S1, +S2 - GI/Abdominal GI/Abdominal exam: Present: soft, no peritoneal signs. Absent: distended, firm , guarding, tenderness - Rectal Rectal exam: Present: deferred - Extremities Exam Extremities exam: Present: warm - Neurological Exam Neurological exam: Present: no focal deficits - Psychiatric Psychiatric exam: Present: normal affect, normal mood - Skin Skin exam: Present: dry, intact, normal color, warm Results - Labs CBC & Chem 7: 04/27/17 03:59 04/27/17 03:59 Labs: Last Result Calcium 10.0 mg/dL (8.6-10.3) 04/27/17 03:59 Iron 44 mcg/dL (50-170) L 04/25/17 11:11 % Saturation 9 % (15-50) L 04/25/17 11:11 Transferrin 341 mg/dL (203-362) 04/25/17 11:11 Ferritin 43 ng/ml (10-120) 04/25/17 11:11 Vitamin B12 458 pg/mL (250-1100) 04/25/17 11:11 Folate 16.7 ng/mL (3.0-16.0) H 04/25/17 11:11 Entire Visit Hgb 8.4 g/dL (11.5-15.4) L 04/27/17 03:59 Hct 29.3 % (35.3-44.9) L 04/27/17 03:59 Ferritin 43 ng/ml (10-120) 04/25/17 11:11 Folate 16.7 ng/mL (3.0-16.0) H 04/25/17 11:11 Consult Discharge Plan - Plan Instructions: Acute Respiratory Distress Syndrome (DC), Diabetes Mellitus Type 2 in Adults (DC), Chronic Hypertension (DC), Pneumonia (DC) Referrals: Clive Alonzo MD [Partnered Physician] - (within 1 week for colonoscopy) Justin Chua DO [Primary Care Provider] - 05/03/17 10:45 am (Please follow up as schedule...) Prescriptions: Aspirin Enteric Coated [Aspirin EC] 81 mg PO DAILY #30 tablet. Ferrous Sulfate 325 mg PO BIDWM #60 tablet levoFLOXacin [Levaquin] 500 mg PO DAILY #7 tablet Omeprazole [PriLOSEC] 40 mg PO DAILY #30 cap <Clive Alonzo - Last Filed: 05/13/17 14:03> Date of Encounter: 04/27/17 - Time Spent With Patient Total time spent is greater than 50% in coordination of care (as documented) at patient's floor/unit and/or counseling patient: GI History of Present Illness - Data of Consult Requesting Physician: Darrel Marrufo MD - Consult Narrative History of present illness: Ms. Hughes is a 67 year old female - Constitutional Vitals: Temp Pulse Resp BP Pulse Ox 98.7 F 66 16 133/78 97 04/28/17 11:09 04/28/17 11:09 04/28/17 11:09 04/28/17 11:09 04/28/17 11:09 Results - Labs CBC & Chem 7: 04/28/17 10:33 04/27/17 03:59 Labs: Last Result Calcium 10.0 mg/dL (8.6-10.3) 04/27/17 03:59 Iron 44 mcg/dL (50-170) L 04/25/17 11:11 % Saturation 9 % (15-50) L 04/25/17 11:11 Transferrin 341 mg/dL (203-362) 04/25/17 11:11 Ferritin 43 ng/ml (10-120) 04/25/17 11:11 Vitamin B12 458 pg/mL (250-1100) 04/25/17 11:11 Folate 16.7 ng/mL (3.0-16.0) H 04/25/17 11:11 Entire Visit Hgb 8.2 g/dL (11.5-15.4) L 04/28/17 10:33 Hct 29.3 % (35.3-44.9) L 04/28/17 10:33 Ferritin 43 ng/ml (10-120) 04/25/17 11:11 Folate 16.7 ng/mL (3.0-16.0) H 04/25/17 11:11 - Attending Attestation She also 67-year-old female who the hemoglobin dropped and she underwent an EGD which are grade grade a esophagitis and she will have and unfortunately the colonoscope was inadequate due to a due to a poor prep she will need to have a repeat colonoscopy done in this is a this is being arranged further recommendation recommendation made at the completion of the colonoscopy I have personally performed a face to face evaluation on this patient. I have reviewed and agree with the care plan. History and Exam by me shows:
--- NOTE | 2017-04-27 14:12 | Internal Med Progress Note ---
Date of Encounter: 04/27/17 Time of Encounter: 10:45 - Assessment and plan (1) Acute on chronic respiratory failure with hypoxemia Current Visit: Yes Status: Acute Assessment and plan: Improving. On 2-1/2 L O2 supplementation. (2) Pneumonia Current Visit: Yes Status: Acute Assessment and plan: Cultures remain negative. No specific organism identified. Sputum sample unable to be cultured due to poor specimen quality. Continue levofloxacin. WBC count remains normal. Patient is clinically getting better. Qualifiers: Pneumonia type: due to unspecified organism Laterality: right Lung location: lower lobe of lung Qualified Code(s): J18.1 - Lobar pneumonia, unspecified organism (3) Acute encephalopathy Current Visit: Yes Status: Resolved Assessment and plan: Now resolved. Due to acute infection/pneumonia. (4) Anemia Current Visit: Yes Status: Chronic Assessment and plan: With underlying gastritis per upper GI endoscopy. Please patient on iron replacement therapy. Hemoglobin levels are stable. Qualifiers: Anemia type: iron deficiency Iron deficiency anemia type: chronic blood loss Qualified Code(s): D50.0 - Iron deficiency anemia secondary to blood loss (chronic) (5) Diabetes mellitus Current Visit: Yes Status: Chronic Assessment and plan: Blood sugar is slightly elevated. We will place patient on low-dose long- acting insulin in addition to sliding scale coverage. Continue diabetic diet. Qualifiers: Diabetes mellitus type: type 2 Diabetes mellitus complication status: without complication Diabetes mellitus custodial insulin use: without custodial use Qualified Code(s): E11.9 - Type 2 diabetes mellitus without complications (6) H/O heart valve replacement with bioprosthetic valve Current Visit: Yes Status: Acute (7) Hypertension Current Visit: Yes Status: Chronic Assessment and plan: Well controlled. Qualifiers: Hypertension type: essential hypertension Qualified Code(s): I10 - Essential (primary) hypertension (8) Pleural effusion Current Visit: Yes Status: Acute Assessment and plan: Most likely parapneumonic effusion. Repeat x-ray in 3-4 weeks after discharge. (9) UTI (urinary tract infection) Current Visit: Yes Status: Resolved Qualifiers: Urinary tract infection type: acute cystitis Hematuria presence: without hematuria Qualified Code(s): N30.00 - Acute cystitis without hematuria (10) Gastritis Current Visit: Yes Status: Acute Assessment and plan: With reflux esophagitis. Place patient on PPI. Qualifiers: Gastritis type: unspecified gastritis Chronicity: chronic Gastritis bleeding: without bleeding Qualified Code(s): K29.50 - Unspecified chronic gastritis without bleeding (11) DVT prophylaxis Current Visit: Yes Status: Acute Assessment and plan: With SCDs. - Subjective Interval history: Patient underwent upper GI endoscopy today. Doing well postprocedure. Colonoscopy not completed due to presence of stool. Patient is feeling better overall. Continues to have mild shortness of breath but improving. No chest pain. No fever or chills. - Constitutional Vitals: Temp Pulse Resp BP Pulse Ox 98.9 F 82 16 120/55 98 04/27/17 11:09 04/27/17 11:09 04/27/17 11:09 04/27/17 11:09 04/27/17 11:09 General appearance: Present: cooperative, A&O X 3, pleasant, answers questions appropriately - Respiratory Respiratory exam: Present: CTAB. Absent: accessory muscle use, rales, rhonchi, wheezes - Cardiovascular Cardiovascular exam: Present: RRR, +S1, +S2. Absent: diastolic murmur, gallop, rubs, systolic murmur - GI/Abdominal GI/Abdominal exam: Present: normal bowel sounds, soft, no peritoneal signs. Absent: distended, tenderness - Extremities Exam Extremities exam: Present: warm, radial pulses palpable and symmetrical. Absent : calf tenderness, cyanotic, pedal edema - Neurological Exam Neurological exam: Present: alert, oriented X3, no focal deficits. Absent: facial droop, speech deficit - Skin Skin exam: Present: dry, intact, pallor Internal Medicine: Result - Labs CBC & Chem 7: 04/27/17 03:59 04/27/17 03:59 Labs: Short CBC 04/26/17 04/26/17 04/27/17 Range/Units 16:36 22:29 03:59 WBC 6.7 (4.3-11.1) K/mcL Hgb 8.0 L 7.9 L 8.4 L (11.5-15.4) g/dL Hct 28.4 L 27.4 L 29.3 L (35.3-44.9) % Plt Count 406 H (140-400) K/mcL Neutrophils # 4.4 (1.6-8.9) K/mcL BMP 04/27/17 03:59 Sodium 134 L Potassium 4.0 Chloride 98 Carbon Dioxide 28 BUN 11 Creatinine 0.60 Glucose 152 H Calcium 10.0 - VTE Documentation of Mechanical Device: Intermittent pneumatic compression device Consult Discharge Plan - Plan Referrals: Justin Chua DO [Primary Care Provider] - 05/03/17 10:45 am (Please follow up as schedule...)
[2017-04-28 03:55] LABS: Red Blood Count 3.36 M/mcL (3.82-4.97)
[2017-04-28 03:56] LABS: Basophils % 0.5 %; Eosinophils # 0.2 K/mcL (0.0-0.6); Eosinophils % 3.1 %; Hematocrit 25.8 % (35.3-44.9); Hemoglobin 7.5 g/dL (11.5-15.4); Immature Granulocytes % 0.2 % (0-4); Lymphocytes # 1.5 K/mcL (0.6-4.6); Mean Corpuscular HGB Conc 29.1 g/dL (31.6-35.5); Mean Corpuscular Hemoglobin 22.3 pg (28.0-33.3); Mean Corpuscular Volume 76.8 fL (83.0-100.0); Mean Platelet Volume 9.7 fL (9.4-12.4); Monocytes # 0.5 K/mcL (0.0-1.3); Monocytes % 7.8 %; Platelet Count 356 K/mcL (140-400); Segmented Neutrophils % 64.4 %
[2017-04-28 03:58] LABS: Neutrophils # 3.9 K/mcL (1.6-8.9)
[2017-04-28 06:37] LABS: Platelet Estimate Normal (Normal)
[2017-04-28 06:38] LABS: Anisocytosis 1+ (Not Present)
[2017-04-28] MEDS: Insulin LISPRO 300 UNITS/3 ML VIAL SQ SCH ×2 (07:40→11:50)
[2017-04-28] MEDS: Aspirin 325 MG TABLET PO SCH (07:47)
[2017-04-28] MEDS: Furosemide 40 MG TABLET PO SCH (07:47)
[2017-04-28] MEDS: Venlafaxine XR (24 HR) 150 MG CAP.ER.24H PO SCH (07:48)
[2017-04-28] MEDS: amLODIPine 5 MG TABLET PO SCH (07:49)
[2017-04-28] MEDS: Patient Taking Own Medication 1 EACH MC SCH (07:50)
[2017-04-28] MEDS ORDERED: levoFLOXacin 500 MG TABLET PO SCH (09:00)
[2017-04-28 10:45] LABS: Hematocrit 29.3 % (35.3-44.9); Hemoglobin 8.2 g/dL (11.5-15.4)
[2017-04-28 11:09] VITALS: BP 133/78
--- NOTE | 2017-04-28 11:13 | Discharge Summary ---
- NOTES TO OUTPATIENT PROVIDER Notes to Outpatient Provider: Follow-up outpatient with gastroenterology for colonoscopy in 1 week. Orders not resulted at time of discharge: Pending orders 04/26/17 07:33 Occult Blood,Stool [BF] Stat 04/28/17 17:00 Hemoglobin and Hematocrit [HEME] Q6H Date of Encounter: 04/28/17 Time of Encounter: 11:09 - Discharge Diagnosis (1) Acute on chronic respiratory failure with hypoxemia Priority: Primary Status: Acute (2) Pneumonia Priority: Secondary Status: Acute Qualifiers: Pneumonia type: due to unspecified organism Laterality: right Lung location: lower lobe of lung Qualified Code(s): J18.1 - Lobar pneumonia, unspecified organism (3) Acute encephalopathy Priority: Secondary Status: Resolved (4) Anemia Priority: Secondary Status: Chronic Qualifiers: Anemia type: iron deficiency Iron deficiency anemia type: chronic blood loss Qualified Code(s): D50.0 - Iron deficiency anemia secondary to blood loss (chronic) (5) Diabetes mellitus Priority: Secondary Status: Chronic Qualifiers: Diabetes mellitus type: type 2 Diabetes mellitus complication status: without complication Diabetes mellitus terminologist insulin use: without chcf use Qualified Code(s): E11.9 - Type 2 diabetes mellitus without complications (6) H/O heart valve replacement with bioprosthetic valve Priority: Secondary Status: Acute (7) Hypertension Priority: Secondary Status: Chronic Qualifiers: Hypertension type: essential hypertension Qualified Code(s): I10 - Essential (primary) hypertension (8) Pleural effusion Priority: Secondary Status: Acute (9) UTI (urinary tract infection) Priority: Secondary Status: Resolved Qualifiers: Urinary tract infection type: acute cystitis Hematuria presence: without hematuria Qualified Code(s): N30.00 - Acute cystitis without hematuria (10) Gastritis Priority: Secondary Status: Acute Qualifiers: Gastritis type: unspecified gastritis Chronicity: chronic Gastritis bleeding: without bleeding Qualified Code(s): K29.50 - Unspecified chronic gastritis without bleeding (11) DVT prophylaxis Priority: Secondary Status: Acute Hospital course: Ms. Hughes is a 67 year old female patient with a history of hypertension, diabetes who was hospitalized here with acute pneumonia and right-sided pleural effusion along with altered mental status. She was treated with IV antibiotics with improvement in her symptoms. She was also found to have iron deficiency anemia and gastroenterology was consulted. Patient underwent upper GI endoscopy yesterday which showed chronic gastritis and reflux esophagitis. Patient is on aspirin 325 mg by mouth daily. This can cause gastritis. As his this dosage is being decreased to 81 mg by mouth daily. Patient is also being placed on Prilosec. Her blood counts have remained stable since then. Colonoscopy was attempted but patient had poor prep. Assess this will be scheduled as outpatient in 1 week. At this time patient is doing better overall. Her cultures have been negative and she is stable to be discharged home on oral antibiotics to complete treatment for her pneumonia. I recommend repeating a chest x-ray in 3-4 weeks to look for resolution of pneumonia and effusion. Discharge discussed with: patient - Time Spent with Patient Total time spent providing and/or coordinating discharge services: Greater than 30 minutes (40 min) - Discharge Medications Prescriptions: Aspirin Enteric Coated [Aspirin EC] 81 mg PO DAILY #30 tablet. Ferrous Sulfate 325 mg PO BIDWM #60 tablet levoFLOXacin [Levaquin] 500 mg PO DAILY #7 tablet Omeprazole [PriLOSEC] 40 mg PO DAILY #30 cap Home Medications: Simvastatin 10 mg PO DAILY 06/18/15 [History] SitaGLIPtin [Januvia] 100 mg PO DAILY 06/18/15 [History] metFORMIN [Glucophage] 1,000 mg PO BIDWM 06/18/15 [History] Amlodipine Besylate 10 mg PO DAILY 04/25/17 [History] Bupivacaine 0.5% [Marcaine 0.5%] 0.89 mg IT DAILY 04/25/17 [History] Buspirone HCl [Buspar] 10 mg PO BID 04/25/17 [History] Citalopram Hydrobromide [Citalopram HBr] 10 mg PO DAILY 04/25/17 [History] Furosemide [Lasix] 40 mg PO BID 04/25/17 [History] Ipratropium [place] 2 spr NS BID 04/25/17 [History] Metoprolol [Lopressor] 12.5 mg PO BID 04/25/17 [History] Morphine Sulfate/Pf [Morphine IntraThecdal Pump] 1.79 mg IT DAILY 04/25/17 [ History] Potassium Chloride [K-Tab ER] 20 meq PO BID 04/25/17 [History] Venlafaxine XR (24 HR) [Effexor Xr] 150 mg PO BID 04/25/17 [History] Aspirin Enteric Coated [Aspirin EC] 81 mg PO DAILY #30 tablet. 04/28/17 [Rx] Ferrous Sulfate 325 mg PO BIDWM #60 tablet 04/28/17 [Rx] Omeprazole [PriLOSEC] 40 mg PO DAILY #30 cap 04/28/17 [Rx] levoFLOXacin [Levaquin] 500 mg PO DAILY #7 tablet 04/28/17 [Rx] Allergies/Adverse Reactions: 3 Allergy/AdvReac Type Severity Reaction Status Date / Time Sulfa (Sulfonamide Allergy Swelling Verified 06/18/15 11:26 Antibiotics) of Lip/Tongue/Throat Date of admission: 04/25/17 14:06 Primary care physician: Justin Chua, Consults: 04/25/17 16:36 Consult to Nutrition [CONS] Routine Comment: Consulting Provider: NUTRITION Reason for Dietary Consult: MST Score Consult to [employer] Cr[employer] Operator [CONS] Routine Reason for SW Consult: home oxygen [facility]. 04/26/17 11:28 Consult to Gastroenterology [CONS] Routine Consulting Provider: Gastroenterology [place] Reason for Consult: Anemia Time Notified: 11:28 Call Completed: Yes Discharging clinician: Darrel Marrufo Anticipated date of discharge: 04/28/17 - Constitutional Vitals: Temp Pulse Resp BP Pulse Ox 98.6 F 88 14 145/71 97 04/28/17 06:42 04/28/17 06:42 04/28/17 06:42 04/28/17 06:42 04/28/17 07:59 General appearance: Present: cooperative, A&O X 3, pleasant, answers questions appropriately - Neck Neck exam general surgery: Present: supple, trachea midline. Absent: lymphadenopathy - Respiratory Respiratory exam: Present: CTAB. Absent: accessory muscle use, rales, rhonchi, wheezes - Cardiovascular Cardiovascular exam: Present: RRR, +S1, +S2. Absent: diastolic murmur, gallop, rubs, systolic murmur - GI/Abdominal GI/Abdominal exam: Present: normal bowel sounds, soft, no peritoneal signs. Absent: distended, tenderness - Neurological Exam Neurological exam: Present: CN II-XII intact, oriented X3, no focal deficits. Absent: facial droop, speech deficit - Patient Status Disposition: Home, Self-Care Condition: Good Functional capacity at discharge: uses cane/walker Overall status at discharge: patient is progressing back to baseline - Discharge Instructions Instructions: Acute Respiratory Distress Syndrome (DC), Diabetes Mellitus Type 2 in Adults (DC), Chronic Hypertension (DC), Pneumonia (DC) Follow Up With: Justin Chua DO [Primary Care Provider] - 05/03/17 10:45 am (Please follow up as schedule...) Clive Alonzo MD [Partnered Physician] - (within 1 week for colonoscopy) - Diet and Activity Activity: increase activity as tolerated, wear oxygen at night Diet: low fat, low cholesterol, low salt diet - VTE Documentation of Mechanical Device: Intermittent pneumatic compression device
== END 2017-04-28 13:15 | disposition home or self-care (01) | DRG 193 ==
LOC: EMEROO 10:37 → 2ANU 14:06
PROVIDERS: ADMIT Family Medicine; ATTEND Internal Medicine

== ENCOUNTER 2017-07-06 12:01 | Inpatient (IN) ==
[2017-07-06] MEDS ORDERED: cefTRIAXone 1,000 MG in Water for inj. (sterile) 20 ML 10 ML IVP ONE (12:24)
--- NOTE | 2017-07-06 12:27 | Emergency Department Note ---
Disposition Clinical Impression: Dehydration, Urinary tract infection, Confusion, Fever Disposition: Admitted As Inpatient Condition: Fair Referrals: Justin Chua DO [Primary Care Provider] - Forms: ED Satisfaction Letter Altered Mental Status HPI - General Chief Complaint: ED Weakness Stated Complaint: AMS Time Seen by Provider: 07/06/17 12:03 Source: EMS Limitations: altered mental status, age Nursing Notes Reviewed: Yes Vital Signs Reviewed: Yes - History of Present Illness HPI Narrative: Patient is a 89-year-old female past medical history of pneumonia, recurrent UTIs, CHF, type 2 diabetes that presents for altered mental status. Patient accompanied by daughter. Patient has been except expressing symptoms for the past 2 days. Daughter said that today patient has been unresponsive to questions. She says her altered mental status is similar to when she develops pneumonia or a UTI. Patient admits to dysuria but denies any hematuria. She admits to suprapubic abdominal pain. Denies any nausea or vomiting. Denies any back pain. She denies any chest pain or shortness of breath. Daughter denies patient having a fall or syncope. Patient had a fever earlier today of 101. Squad checked glucose reading which was 118 upon arrival. Patient was at 96% O2 on room air at home. - Related Data Home Medications Medication Instructions Recorded Confirmed Simvastatin 10 mg PO DAILY 06/18/15 04/25/17 SitaGLIPtin [Januvia] 100 mg PO DAILY 06/18/15 04/25/17 metFORMIN [Glucophage] 1,000 mg PO BIDWM 06/18/15 04/25/17 Amlodipine Besylate 10 mg PO DAILY 04/25/17 04/25/17 Bupivacaine 0.5% [Marcaine 0.5%] 0.89 mg IT DAILY 04/25/17 04/25/17 Buspirone HCl [Buspar] 10 mg PO BID 04/25/17 04/25/17 Citalopram Hydrobromide 10 mg PO DAILY 04/25/17 04/25/17 [Citalopram HBr] Furosemide [Lasix] 40 mg PO BID 04/25/17 04/25/17 Ipratropium [place] 2 spr NS BID 04/25/17 04/25/17 Metoprolol [Lopressor] 12.5 mg PO BID 04/25/17 04/25/17 Morphine Sulfate/Pf [Morphine 1.79 mg IT DAILY 04/25/17 04/25/17 IntraThecdal Pump] Potassium Chloride [K-Tab ER] 20 meq PO BID 04/25/17 04/25/17 Venlafaxine XR (24 HR) [Effexor Xr] 150 mg PO BID 04/25/17 04/25/17 Previous Rx's Medication Instructions Recorded Aspirin Enteric Coated [Aspirin EC] 81 mg PO DAILY #30 tablet. 04/28/17 Ferrous Sulfate 325 mg PO BIDWM #60 tablet 04/28/17 Omeprazole [PriLOSEC] 40 mg PO DAILY #30 cap 04/28/17 levoFLOXacin [Levaquin] 500 mg PO DAILY #7 tablet 04/28/17 Allergies Allergy/AdvReac Type Severity Reaction Status Date / Time Sulfa (Sulfonamide Allergy Swelling Verified 06/18/15 11:26 Antibiotics) of Lip/Tongue/Throat Review of Systems: As Per HPI Cardiovascular: Denies: chest pain, palpitations, dyspnea on exertion, edema, syncope Respiratory: Denies: cough, dyspnea, wheezes Gastrointestinal: Reports: abdominal pain. Denies: nausea, vomiting, diarrhea, constipation Genitourinary: Reports: dysuria. 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 Absent: +S3, +S4 - Abdominal Exam Abdominal exam: Present: soft, tenderness, normal bowel sounds. Absent: distention, guarding, rebound, rigidity, tenderness at McBurney's Point Abdominal tenderness: Present: suprapubic - Extremities Exam Extremities exam: Present: normal inspection, full ROM, normal capillary refill , other (Negative Homans sign bilaterally). Absent: tenderness, pedal edema, calf tenderness - Neurological Exam Neurological exam: Present: other (Unable to complete due to altered mental status the patient.) - Skin Skin exam: Present: warm, dry, intact, normal color Course Course Narrative: Patient presents with altered mental status with history of recurrent pneumonia and UTIs. We will perform a UA to rule out a UTI. Chest x-ray will be obtained to rule out pneumonia. Patient does not meet SIRS criteria. Culture and lactic acid will be obtained to evaluate presence of infection. Patient was febrile with low-grade fever and given Tylenol. We will start patient on empiric antibiotics with 1 g of Rocephin. Update: CXR shoes improving R basilar airspace disease. WBC shows normal count. UA shows signs of infection. AMS likely secondary to UTI. Spoke to hospitalist Dr. Russ who agreed to admit the patient. Chest X-Ray 07/06/17 12:20 IMPRESSION: Cardiomegaly and pulmonary vascular congestion. Improving right basilar airspace disease. D/ / Hao Tucker MD / Hao Tucker MD Interpreting Provider: Hao Tucker MD Head CT 07/06/17 12:22 IMPRESSION: No acute intracranial abnormality. Stable cortical atrophy and chronic microvascular ischemia D/ / Vasyl Parada MD / Vasyl Parada MD Interpreting Provider: Vasyl Parada MD Vital Signs Temperature 100.5 F H 07/06/17 12:13 Pulse Rate 87 07/06/17 12:13 Respiratory Rate 20 07/06/17 12:13 Blood Pressure 140/56 07/06/17 12:13 O2 Sat by Pulse Oximetry 96 07/06/17 12:13 Temperature 100.5 F H 07/06/17 12:13 Pulse Rate 88 07/06/17 13:19 Respiratory Rate 18 07/06/17 13:19 Blood Pressure 132/69 07/06/17 13:19 O2 Sat by Pulse Oximetry 94 07/06/17 13:19 Oxygen Delivery Oxygen Delivery Room Air Altered Mental Status - Lab Data Result diagrams: 07/06/17 12:37 07/06/17 12:37 Lab Results 07/06/17 07/06/17 07/06/17 Range/Units 12:37 12:37 12:53 WBC 5.9 (4.3-11.1) K/mcL RBC 4.27 (3.82-4.97) M/mcL Hgb 10.4 L (11.5-15.4) g/dL Hct 34.2 L (35.3-44.9) % MCV 80.1 L (83.0-100.0) fL MCH 24.4 L (28.0-33.3) pg MCHC 30.4 L (31.6-35.5) g/dL RDW 18.0 H (11.5-14.5) % Plt Count 226 (140-400) K/mcL MPV 9.5 (9.4-12.4) fL Immature Gran % 0.3 (0-4) % Seg Neutrophils % 72.1 % Lymphocytes % 15.9 % Monocytes % 10.6 % Eosinophils % 0.8 % Basophils % 0.3 % Neutrophils # 4.3 (1.6-8.9) K/mcL Lymphocytes # 0.9 (0.6-4.6) K/mcL Monocytes # 0.6 (0.0-1.3) K/mcL Eosinophils # 0.1 (0.0-0.6) K/mcL Basophils # 0.0 (0.0-0.2) K/mcL Sodium 134 L (136-145) mEq/L Potassium 4.1 (3.5-5.1) mEq/L Chloride 96 L (98-107) mEq/L Carbon Dioxide 30 H (23-29) mEq/L BUN 23 (8-23) mg/dL Creatinine 0.67 (0.60-1.20) mg/dL Est GFR ( Amer) > 60 (> 60) Est GFR (Non-Af Amer) > 60 (> 60) BUN/Creatinine Ratio 34 H (6-26) Glucose 110 H (70-105) mg/dL Calculated Osmolality 282 (280-300) Calcium 9.8 (8.6-10.3) mg/dL Total Bilirubin 0.3 (0.3-1.0) mg/dL AST 13 (13-39) Units/L ALT 9 (7-52) Units/L Alkaline Phosphatase 85 (34-104) Units/L Serum Total Protein 8.4 (6.4-8.9) g/dL Albumin 4.4 (3.5-5.7) g/dL Globulin 4.0 H (2.4-3.5) g/dL Albumin/Globulin Ratio 1.1 (1.1-2.2) Urine Color Yellow (Yellow) Urine Clarity Slightly Hazy (Clear) Urine pH 6.5 (5.0-8.0) pH Units Ur Specific [place] 1.016 (1.010-1.025) Urine Protein Negative (Neg-Trace) mg/dL Urine Glucose (UA) Normal (Normal) mg/dL Urine Ketones Negative (Negative) mg/dL Urine Blood Negative (Negative) Urine Nitrite Positive A (Negative) Urine Bilirubin Negative (Negative) Urine Urobilinogen Normal (Normal) mg/dL Ur Leukocyte Esterase Small H (Negative) Urine Microscopic RBC 3-5 H (0-3) per hpf Urine Microscopic WBC 3-5 H (0-3) per hpf Ur Squamous Epith Cells Moderate H (None-Few) per lpf Urine Bacteria Moderate H (None-Few) per hpf Hyaline Casts None Seen (None-Few) per lpf Ur Culture Indicated? YES A (NO) - EKG Data EKG attestation: Yes I reviewed and interpreted this EKG. EKG shows normal: intervals, QRS complexes Rate: normal [place]/QRS: left axis deviation Heart block present: 1st Degree TPA Checklist - LKW: 3-4.5 hrs Add. Warnings/Precautions Patient/family understanding: The patient/family members have been counseled and understood the risk, benefit , and alternatives of treatment. Attestation Statement - Attestation Attestation: I, Steven Pruitt DO, examined this patient [id number] and my medical decision-making was reviewed with Surendra Gonzales PGY-1, Resident Physician. I agree with the documented findings, disposition and treatment plan as described except to the extent set forth below. Please see my progress notes for details.
[2017-07-06 12:56] LABS: Basophils % 0.3 %; Eosinophils # 0.1 K/mcL (0.0-0.6); Eosinophils % 0.8 %; Hematocrit 34.2 % (35.3-44.9); Hemoglobin 10.4 g/dL (11.5-15.4); Immature Granulocytes % 0.3 % (0-4); Lymphocytes # 0.9 K/mcL (0.6-4.6); Lymphocytes % 15.9 %; Mean Corpuscular HGB Conc 30.4 g/dL (31.6-35.5); Mean Corpuscular Hemoglobin 24.4 pg (28.0-33.3); Mean Corpuscular Volume 80.1 fL (83.0-100.0); Mean Platelet Volume 9.5 fL (9.4-12.4); Monocytes # 0.6 K/mcL (0.0-1.3); Monocytes % 10.6 %; Neutrophils # 4.3 K/mcL (1.6-8.9); Platelet Count 226 K/mcL (140-400); Red Blood Count 4.27 M/mcL (3.82-4.97); Segmented Neutrophils % 72.1 %
[2017-07-06 13:07] LABS: Bilirubin,Urine Negative (Negative); Blood,Urine Negative (Negative); Color,Urine Yellow (Yellow); Glucose,Urine (UA) Normal (Normal); Ketones,Urine Negative (Negative); Leukocyte Esterase,Urine Small (Negative); Nitrite,Urine Positive (Negative); PH,Urine 6.5 pH Units (5.0-8.0); Protein,Urine Negative (Neg-Trace); Specific Gravity,Urine 1.016 (1.010-1.025); Urobilinogen,Urine Normal (Normal)
[2017-07-06 13:10] LABS: Bacteria,Urine Moderate per hpf (None-Few); Hyaline Casts,Urine None Seen per lpf (None-Few); Squamous Epithelial Cell,Urine Moderate per lpf (None-Few)
[2017-07-06 13:13] LABS: Clarity,Urine Slightly Hazy (Clear)
[2017-07-06 13:15] LABS: Alanine Aminotransferase 9 Units/L (7-52); Albumin 4.4 g/dL (3.5-5.7); Albumin/Globulin Ratio 1.1 (1.1-2.2); Alkaline Phosphatase 85 Units/L (34-104); Aspartate Amino Transferase 13 Units/L (13-39); BUN/Creatinine Ratio 34 (6-26); Bilirubin,Total 0.3 mg/dL (0.3-1.0); Blood Urea Nitrogen 23 mg/dL (8-23); Calcium 9.8 mg/dL (8.6-10.3); Carbon Dioxide 30 mEq/L (23-29); Chloride 96 mEq/L (98-107); Glucose 110 mg/dL (70-105); Osmolality,Calculated 282 (280-300); Potassium 4.1 mEq/L (3.5-5.1); Sodium 134 mEq/L (136-145); Total Protein 8.4 g/dL (6.4-8.9); eGFR For African Americans > 60 (> 60); eGFR For Non-African Americans > 60 (> 60)
--- NOTE | 2017-07-06 13:26 | Emergency Department Note ---
Disposition Clinical Impression: Dehydration, Urinary tract infection, Confusion, Fever Disposition: Admitted As Inpatient Condition: Fair Referrals: Justin Chua DO [Primary Care Provider] - Forms: ED Satisfaction Letter Time of Disposition: 13:27 General Adult HPI - General Chief complaint: ED Weakness Stated complaint: AMS Time Seen by Provider: 07/06/17 12:03 Source: EMS Limitations: altered mental status, age, other (Alert and oriented 1) - History of Present Illness Pain Scale: 0 - Related Data Home Medications Medication Instructions Recorded Confirmed Simvastatin 10 mg PO DAILY 06/18/15 04/25/17 SitaGLIPtin [Januvia] 100 mg PO DAILY 06/18/15 04/25/17 metFORMIN [Glucophage] 1,000 mg PO BIDWM 06/18/15 04/25/17 Amlodipine Besylate 10 mg PO DAILY 04/25/17 04/25/17 Bupivacaine 0.5% [Marcaine 0.5%] 0.89 mg IT DAILY 04/25/17 04/25/17 Buspirone HCl [Buspar] 10 mg PO BID 04/25/17 04/25/17 Citalopram Hydrobromide 10 mg PO DAILY 04/25/17 04/25/17 [Citalopram HBr] Furosemide [Lasix] 40 mg PO BID 04/25/17 04/25/17 Ipratropium [place] 2 spr NS BID 04/25/17 04/25/17 Metoprolol [Lopressor] 12.5 mg PO BID 04/25/17 04/25/17 Morphine Sulfate/Pf [Morphine 1.79 mg IT DAILY 04/25/17 04/25/17 IntraThecdal Pump] Potassium Chloride [K-Tab ER] 20 meq PO BID 04/25/17 04/25/17 Venlafaxine XR (24 HR) [Effexor Xr] 150 mg PO BID 04/25/17 04/25/17 Previous Rx's Medication Instructions Recorded Aspirin Enteric Coated [Aspirin EC] 81 mg PO DAILY #30 tablet. 04/28/17 Ferrous Sulfate 325 mg PO BIDWM #60 tablet 04/28/17 Omeprazole [PriLOSEC] 40 mg PO DAILY #30 cap 04/28/17 levoFLOXacin [Levaquin] 500 mg PO DAILY #7 tablet 04/28/17 Allergies Allergy/AdvReac Type Severity Reaction Status Date / Time Sulfa (Sulfonamide Allergy Swelling Verified 06/18/15 11:26 Antibiotics) of Lip/Tongue/Throat Cardiovascular: Denies: chest pain, palpitations, dyspnea on exertion, edema, syncope Respiratory: Denies: cough, dyspnea, wheezes Gastrointestinal: Reports: abdominal pain. Denies: nausea, vomiting, diarrhea, constipation Genitourinary: Reports: dysuria. 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 - Social History Smoking Status: Never smoker Smokeless Tobacco Status: No Alcohol use: Reports: none Drug use: Reports: none Physical Exam - General Limitations: altered mental status, age, other (Alert and oriented 1) General appearance: lethargic Course Vital Signs Temperature 100.5 F H 07/06/17 12:13 Pulse Rate 87 07/06/17 12:13 Respiratory Rate 20 07/06/17 12:13 Blood Pressure 140/56 07/06/17 12:13 O2 Sat by Pulse Oximetry 96 07/06/17 12:13 Temperature 100.5 F H 07/06/17 12:13 Pulse Rate 87 07/06/17 12:13 Respiratory Rate 20 07/06/17 12:13 Blood Pressure 140/56 07/06/17 12:13 O2 Sat by Pulse Oximetry 96 07/06/17 12:13 Oxygen Delivery Oxygen Delivery Room Air Medical Decision Making - Lab Data Result diagrams: 07/06/17 12:37 07/06/17 12:37 Lab Results 07/06/17 07/06/17 07/06/17 Range/Units 12:37 12:37 12:53 WBC 5.9 (4.3-11.1) K/mcL RBC 4.27 (3.82-4.97) M/mcL Hgb 10.4 L (11.5-15.4) g/dL Hct 34.2 L (35.3-44.9) % MCV 80.1 L (83.0-100.0) fL MCH 24.4 L (28.0-33.3) pg MCHC 30.4 L (31.6-35.5) g/dL RDW 18.0 H (11.5-14.5) % Plt Count 226 (140-400) K/mcL MPV 9.5 (9.4-12.4) fL Immature Gran % 0.3 (0-4) % Seg Neutrophils % 72.1 % Lymphocytes % 15.9 % Monocytes % 10.6 % Eosinophils % 0.8 % Basophils % 0.3 % Neutrophils # 4.3 (1.6-8.9) K/mcL Lymphocytes # 0.9 (0.6-4.6) K/mcL Monocytes # 0.6 (0.0-1.3) K/mcL Eosinophils # 0.1 (0.0-0.6) K/mcL Basophils # 0.0 (0.0-0.2) K/mcL Sodium 134 L (136-145) mEq/L Potassium 4.1 (3.5-5.1) mEq/L Chloride 96 L (98-107) mEq/L Carbon Dioxide 30 H (23-29) mEq/L BUN 23 (8-23) mg/dL Creatinine 0.67 (0.60-1.20) mg/dL Est GFR ( Amer) > 60 (> 60) Est GFR (Non-Af Amer) > 60 (> 60) BUN/Creatinine Ratio 34 H (6-26) Glucose 110 H (70-105) mg/dL Calculated Osmolality 282 (280-300) Calcium 9.8 (8.6-10.3) mg/dL Total Bilirubin 0.3 (0.3-1.0) mg/dL AST 13 (13-39) Units/L ALT 9 (7-52) Units/L Alkaline Phosphatase 85 (34-104) Units/L Serum Total Protein 8.4 (6.4-8.9) g/dL Albumin 4.4 (3.5-5.7) g/dL Globulin 4.0 H (2.4-3.5) g/dL Albumin/Globulin Ratio 1.1 (1.1-2.2) Urine Color Yellow (Yellow) Urine Clarity Slightly Hazy (Clear) Urine pH 6.5 (5.0-8.0) pH Units Ur Specific [place] 1.016 (1.010-1.025) Urine Protein Negative (Neg-Trace) mg/dL Urine Glucose (UA) Normal (Normal) mg/dL Urine Ketones Negative (Negative) mg/dL Urine Blood Negative (Negative) Urine Nitrite Positive A (Negative) Urine Bilirubin Negative (Negative) Urine Urobilinogen Normal (Normal) mg/dL Ur Leukocyte Esterase Small H (Negative) Urine Microscopic RBC 3-5 H (0-3) per hpf Urine Microscopic WBC 3-5 H (0-3) per hpf Ur Squamous Epith Cells Moderate H (None-Few) per lpf Urine Bacteria Moderate H (None-Few) per hpf Hyaline Casts None Seen (None-Few) per lpf Ur Culture Indicated? YES A (NO) Attestation Statement - Attestation Attestation: I, Steven Pruitt DO, examined this patient [id number] and my medical decision-making was reviewed with Surendra Gonzales PGY-1, Resident Physician. I agree with the documented findings, disposition and treatment plan as described except to the extent set forth below. Please see my progress notes for details. 67-year-old female presents to the emergency room in the care of the daughter for evaluation of confusion. Symptoms of been progressively coming on over the last several days. Daughter notes that she does have a history of some confusion and intermittent spotty memory that point getting worse for the last several years. Daughters had this happen several times in the past secondary to pneumonia as well as a urinary tract infection. Patient is pleasantly confused at this time she is alert she follows commands. She is only alert to person at this time. Patient's head is atraumatic. Reactive extraocular muscles are intact. Lungs are clear heart is regular abdomen is tender to palpation but no guarding no rigidity no peritoneal symptoms. Patient moves all 4 of her extremities with purpose. She has no neurologic deficits or symptoms at this time. Patient is just confused. Patient will have urinary tract evaluation as well as CT the head chest x-ray EKG laboratory CBC chemistry , BNP and troponin. Patient is otherwise currently stable despite the conservative confusion. First dose of Rocephin will be given here in the emergency room to address any potential urinary tract infections and augmentation of the antibiotic regimen will be changed as the patient's symptoms progress. Patient is otherwise clinically stable family is informed controlled plan. See detailed recommendation the physical exam, medical intervention, medical decision-making and disposition in the resident physician' s note. No critical care applied to the patient's treatment course at this time 1315 Patient found to have a significantly contaminated urine with positive nitrites and bacteria. CT imaging of her head is still pending. Chest x-ray is unremarkable. Labs are unremarkable or at least a baseline for the patient's presentation this point. Patient will be provided with Rocephin here in the admission process will be completed. Hospitalist was paged. Detailed discussion with the hospitalist Dr. Russ was completed in the emergency room. In no other recommendations or concerns this time. Patient will be admitted for further management.
[2017-07-06] MEDS: 0.9 % Sodium Chloride 1,000 ML IVC SCH ×2 (14:03→22:46)
--- NOTE | 2017-07-06 14:55 | Internal Med History&Physical ---
Date of Encounter: 07/06/17 Time of Encounter: 14:50 Internal Medicine - H&P: HPI Admitted From: Emergency Dept Plans for Post Hospital Care: Home History of present illness: Ms. Hughes is a 67 year old female Patient with history of recurrent UTI, congestive heart failure, diabetes, CAD had a CABG in February of last year, hypertension, anemia and depression patient brought in by daughter due to mental status changes of being more unresponsive and confused In ER she is awake alert has some mild abdominal discomfort and dysuria CT of the head was unremarkable UA shows UTI patient admitted for treatment of UTI In the past she has had mental status er changes when she had pneumonia or UTI per daughter . White count is normal Past Med Surg Social Fam HX - Past Medical History Medical history: CHF, coronary artery disease, diabetes, hypertension, other Psychiatric history: depression, panic disorder - Past Surgical History Surgical History: coronary bypass (CABG), hysterectomy - Social History Smoking Status: Never smoker Smokeless Tobacco Status: No Alcohol use: none Drug use: none - Family History Mother Living Status: Hx Family Cardiac Disorders: Yes Hx Family Endocrine Disorder: Yes Father Living Status: Hx Family Cancer: Yes Internal Medicine - H&P: Meds Simvastatin 10 mg PO DAILY 06/18/15 [History] SitaGLIPtin [Januvia] 100 mg PO DAILY 06/18/15 [History] metFORMIN [Glucophage] 1,000 mg PO BIDWM 06/18/15 [History] Amlodipine Besylate 10 mg PO DAILY 04/25/17 [History] Bupivacaine 0.5% [Marcaine 0.5%] 0.89 mg IT DAILY 04/25/17 [History] Buspirone HCl [Buspar] 10 mg PO BID 04/25/17 [History] Citalopram Hydrobromide [Citalopram HBr] 10 mg PO DAILY 04/25/17 [History] Furosemide [Lasix] 40 mg PO BID 04/25/17 [History] Metoprolol [Lopressor] 12.5 mg PO BID 04/25/17 [History] Morphine Sulfate/Pf [Morphine IntraThecdal Pump] 1.79 mg IT DAILY 04/25/17 [ History] Potassium Chloride [K-Tab ER] 20 meq PO BID 04/25/17 [History] Venlafaxine XR (24 HR) [Effexor Xr] 150 mg PO BID 04/25/17 [History] Aspirin Enteric Coated [Aspirin EC] 81 mg PO DAILY #30 tablet. 04/28/17 [Rx] Ferrous Sulfate 325 mg PO BIDWM #60 tablet 04/28/17 [Rx] Ascorbic Acid [Vitamin C with Wendy Hips] 500 mg PO DAILY 07/06/17 [History] 3 Allergy/AdvReac Type Severity Reaction Status Date / Time Sulfa (Sulfonamide Allergy Swelling Verified 06/18/15 11:26 Antibiotics) of Lip/Tongue/Throat All Systems PM: A 10-system review of systems was performed and is negative for pertinent findings except as documented above in the HPI. - Constitutional Vitals: Temp Pulse Resp BP Pulse Ox 100.5 F H 89 18 135/60 93 07/06/17 12:13 07/06/17 14:36 07/06/17 14:36 07/06/17 14:36 07/06/17 14:36 - Head Head exam: Present: atraumatic, normocephalic - Eye Eye exam: Present: PERRL, conjuntiva pink, sclera anicteric Pupils: Present: PERRL - Neck Neck exam general surgery: Present: supple, trachea midline. Absent: lymphadenopathy - Respiratory Respiratory exam: Present: CTAB. Absent: accessory muscle use, rales, rhonchi, wheezes - Cardiovascular Cardiovascular exam: Present: RRR, +S1, +S2. Absent: diastolic murmur, gallop, rubs, systolic murmur - GI/Abdominal GI/Abdominal exam: Present: normal bowel sounds, soft, no peritoneal signs. Absent: distended, tenderness Internal Med - H&P Results - Labs CBC & Chem 7: 07/06/17 12:37 07/06/17 12:37 - Assessment and plan (1) HTN (hypertension) Current Visit: Yes Status: Chronic Assessment and plan: Chronic and well controlled Qualifiers: Hypertension type: essential hypertension Qualified Code(s): I10 - Essential (primary) hypertension (2) Hx of CABG Current Visit: Yes Status: Acute Assessment and plan: Denies any chest pain (3) Altered mental status Current Visit: No Status: Resolved Assessment and plan: Reason for admission very likely this is due to UTI was started on Rocephin IV and send for cultures Qualifiers: Altered mental status type: unspecified Qualified Code(s): R41.82 - Altered mental status, unspecified (4) UTI (urinary tract infection) Current Visit: No Status: Resolved Assessment and plan: Patient has history of recurrent UTI Qualifiers: Urinary tract infection type: acute cystitis Hematuria presence: without hematuria Qualified Code(s): N30.00 - Acute cystitis without hematuria (5) Diabetes mellitus Current Visit: No Status: Chronic Assessment and plan: Chronic resume home medication and place on sliding scale Qualifiers: Diabetes mellitus type: type 2 Diabetes mellitus fdc insulin use: without fdc use Diabetes mellitus complication status: without complication Qualified Code(s): E11.9 - Type 2 diabetes mellitus without complications - Time Spent With Patient Total time spent is greater than 50% in coordination of care (as documented) at patient's floor/unit and/or counseling patient:
[2017-07-06] MEDS ORDERED: traMADol 50 MG TABLET PO PRN (14:59)
[2017-07-06] MEDS ORDERED: Acetaminophen 325 MG TABLET PO PRN (14:59)
[2017-07-06] MEDS ORDERED: Naloxone 0.4 MG/ML INJ IVP PRN (14:59)
[2017-07-06 16:19] LABS: Bilirubin,Urine Negative (Negative); Blood,Urine Negative (Negative); Clarity,Urine Clear (Clear); Color,Urine Yellow (Yellow); Glucose,Urine (UA) Normal (Normal); Ketones,Urine Negative (Negative); Leukocyte Esterase,Urine Small (Negative); Nitrite,Urine Positive (Negative); Protein,Urine Negative (Neg-Trace); Specific Gravity,Urine 1.017 (1.010-1.025); Urobilinogen,Urine Normal (Normal)
[2017-07-06 16:21] LABS: Bacteria,Urine Few per hpf (None-Few); Hyaline Casts,Urine None Seen per lpf (None-Few); RBC,Urine 0-3 per hpf (0-3); Squamous Epithelial Cell,Urine Few per lpf (None-Few)
[2017-07-06] MEDS: Furosemide 40 MG TABLET PO SCH (18:36)
[2017-07-06] MEDS: *HR* Metformin 500 MG TABLET PO SCH (18:36)
[2017-07-06] MEDS: Venlafaxine XR (24 HR) 150 MG CAP.ER.24H PO SCH (20:26)
[2017-07-07 04:39] LABS: Hemoglobin 9.6 g/dL (11.5-15.4); Mean Corpuscular Hemoglobin 24.3 pg (28.0-33.3); Mean Platelet Volume 9.5 fL (9.4-12.4); Platelet Count 200 K/mcL (140-400); Red Blood Count 3.95 M/mcL (3.82-4.97)
[2017-07-07 05:02] LABS: Chol/HDL Ratio 3.9 (0-4.9)
--- NOTE | 2017-07-07 06:28 | Electrocardiograph Report ---
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
[2017-07-07] MEDS: 0.9 % Sodium Chloride 1,000 ML IVC SCH ×2 (06:40→08:07)
[2017-07-07] MEDS: MORPHINE SULFATE IT SCH (07:30)
[2017-07-07] MEDS: amLODIPine 5 MG TABLET PO SCH (08:07)
[2017-07-07] MEDS: Venlafaxine XR (24 HR) 150 MG CAP.ER.24H PO SCH ×2 (08:08→21:19)
[2017-07-07] MEDS: *HR* SitaGLIPtin 100 MG TABLET PO SCH (08:11)
[2017-07-07] MEDS: *HR* Metformin 500 MG TABLET PO SCH ×2 (08:11→17:51)
[2017-07-07] MEDS: Furosemide 40 MG TABLET PO SCH (08:11)
[2017-07-07] MEDS: Aspirin Enteric Coated 81 MG Tablet PO SCH (08:11)
[2017-07-07] MEDS: Ascorbic Acid 500 MG TABLET PO SCH (08:11)
[2017-07-07] MEDS: cefTRIAXone 1,000 MG in Water for inj. (sterile) 20 ML 10 ML IVP SCH (08:14)
--- NOTE | 2017-07-07 12:45 | Internal Med Progress Note ---
Date of Encounter: 07/07/17 Time of Encounter: 12:42 - Assessment and plan (1) HTN (hypertension) Current Visit: Yes Status: Chronic Assessment and plan: Chronic and well controlled Qualifiers: Hypertension type: essential hypertension Qualified Code(s): I10 - Essential (primary) hypertension (2) Hx of CABG Current Visit: Yes Status: Acute Assessment and plan: Patient did not have cabg she had mitral and aortic valve replacement per daughter in [place] (3) Altered mental status Current Visit: No Status: Resolved Assessment and plan: resolved back to baseline Qualifiers: Altered mental status type: unspecified Qualified Code(s): R41.82 - Altered mental status, unspecified (4) UTI (urinary tract infection) Current Visit: No Status: Acute Assessment and plan: started on rocephin c ultures pending Qualifiers: Urinary tract infection type: acute cystitis Hematuria presence: without hematuria Qualified Code(s): N30.00 - Acute cystitis without hematuria (5) Diabetes mellitus Current Visit: No Status: Chronic Assessment and plan: Chronic we will continue on sliding scale Qualifiers: Diabetes mellitus type: type 2 Diabetes mellitus prison insulin use: without long term care pharmacist use Diabetes mellitus complication status: without complication Qualified Code(s): E11.9 - Type 2 diabetes mellitus without complications (6) CHF (congestive heart failure) Current Visit: Yes Status: Acute Assessment and plan: No echo in the system here and will order 2-D echo to assess if diastolic or systolic dysfunction cardiology is being consulted as well Qualifiers: Heart failure type: unspecified Heart failure chronicity: acute Qualified Code(s): I50.9 - Heart failure, unspecified - Time Spent With Patient Total time spent is greater than 50% in coordination of care (as documented) at patient's floor/unit and/or counseling patient: - Subjective Interval history: patient seen and examined patient clarify she had valve replacement in feb not cabg and had chf in march today no new colmplains no chest pain bnp is 248 - Constitutional Vitals: Temp Pulse Resp BP Pulse Ox 99.0 F 80 15 110/68 97 07/07/17 11:28 07/07/17 11:28 07/07/17 11:28 07/07/17 11:28 07/07/17 11:28 - Head Head exam: Present: atraumatic, normocephalic - Eye Eye exam: Present: PERRL, conjuntiva pink, sclera anicteric Pupils: Present: PERRL - Respiratory Respiratory exam: Present: rales, rhonchi - Cardiovascular Cardiovascular exam: Present: RRR, +S1, +S2. Absent: diastolic murmur, gallop, rubs, systolic murmur - GI/Abdominal GI/Abdominal exam: Present: normal bowel sounds, soft, no peritoneal signs. Absent: distended, tenderness Internal Medicine: Result - Labs CBC & Chem 7: 07/07/17 04:19 07/06/17 12:37 Labs: Short CBC 07/07/17 Range/Units 04:19 WBC 3.9 L (4.3-11.1) K/mcL Hgb 9.6 L (11.5-15.4) g/dL Hct 32.0 L (35.3-44.9) % Plt Count 200 (140-400) K/mcL Cardiac Enzymes 07/06/17 07/07/17 Range/Units 21:51 04:19 Troponin I 0.08 H* 0.07 H* (< 0.04) ng/mL Urine 07/06/17 Range/Units 15:57 Urine Color Yellow (Yellow) Urine Clarity Clear (Clear) Urine pH 6.0 (5.0-8.0) pH Units Ur Specific [place] 1.017 (1.010-1.025) Urine Protein Negative (Neg-Trace) mg/dL Urine Glucose (UA) Normal (Normal) mg/dL Consult Discharge Plan - Plan Referrals: Justin Chua DO [Primary Care Provider] -
[2017-07-07] MEDS: Furosemide 40 MG/4 ML VIAL IVP SCH (17:51)
[2017-07-08] MEDS: cefTRIAXone 1,000 MG in Water for inj. (sterile) 20 ML 10 ML IVP SCH (08:53)
[2017-07-08] MEDS: Ascorbic Acid 500 MG TABLET PO SCH (08:54)
[2017-07-08] MEDS: Furosemide 40 MG/4 ML VIAL IVP SCH ×2 (08:54→16:12)
[2017-07-08] MEDS: amLODIPine 5 MG TABLET PO SCH (08:56)
[2017-07-08] MEDS: *HR* SitaGLIPtin 100 MG TABLET PO SCH (08:56)
[2017-07-08] MEDS: *HR* Metformin 500 MG TABLET PO SCH ×2 (08:56→16:12)
[2017-07-08] MEDS: Aspirin Enteric Coated 81 MG Tablet PO SCH (08:56)
[2017-07-08] MEDS: Venlafaxine XR (24 HR) 150 MG CAP.ER.24H PO SCH ×2 (08:56→20:40)
[2017-07-08] MEDS: MORPHINE SULFATE IT SCH (08:57)
--- NOTE | 2017-07-08 09:23 | Cardiology Consult Note ---
<Oleg Modi - Last Filed: 07/08/17 10:53> Date of Encounter: 07/08/17 Time of Encounter: 09:20 Assessment and Plan (1) Urinary tract infection Current Visit: Yes Status: Acute Per Cardiology: Apparent history of recurrent UTIs. Management per primary service. Qualifiers: Qualified Code(s): N39.0 - Urinary tract infection, site not specified (2) Elevated troponin I measurement Current Visit: Yes Status: Acute Per Cardiology: Patient denies any chest pain, however questionable historian. It appears she is not had CABG surgery recently, however we will attempt to obtain medical records. Troponins mildly elevated, flat, adynamic with peak of 0.08 in setting of UTI and noted to have severe mitral stenosis on echo from April 2017. No cardiac rehabilitation consult warranted. On aspirin, statin, beta alpesh. Has echo already pending per primary. (3) H/O heart valve replacement with bioprosthetic valve Current Visit: No Status: Chronic Per Cardiology: Apparent history of recent valve surgery. Again, per review of medical records daughter had indicated aortic and mitral valve replacement in [place] with no bypass. However, patient today indicates she had 2 "cow valves" [place] [facility] [place]. We will attempt to obtain medical records and clarify when and where patient had surgery and obtain records to see exactly what was completed. Of note echo from April 2017 showed EF 60-65%, severely dilated left atrium, normal RV structure and function, indeterminate diastolic function, bioprosthetic aortic valve well seated with no significant prosthetic stenosis with mean gradient of 14 mmHg, no aortic regurgitation. Also showed severe mitral annular calcification and "cannot exclude prior surgical correction of mitral valve ", no mitral regurgitation, severe mitral stenosis with mean gradient of 14 mmHg. No pulmonary hypertension noted. No cardiology consult noted during that hospital stay. Discussion w patient/family: carmen you for involving us in the care of your patient. Please call with any questions. History of Present Illness Consult date: 07/08/17 Requesting physician: Julia Lopes Consult reason: Elevated trop in setting MS changes Chief complaint: Unsure History of present illness: Ms. Hughes is a 67 year old female with apparent past medical history of hypertension, diabetes mellitus, valvular heart disease. Cardiology consult for mild troponin elevation and concerns of CHF in setting of mental status changes and confusion with UTI. Patient alert to person, place, and time today. Patient unsure of reason why she was admitted. No family currently at bedside. History is somewhat questionable, per review of medical records it appears daughter indicated patient has had recent mitral valve and aortic valve surgery in the [place]. Patient reports today she had 2 "Cow valves" [place]/06/2017 [place] [facility] She reports she follows with a psych therapist from [facility]. She currently denies any chest pain, short of breath, palpitations. Past Med Surg Social Fam HX - Past Medical History Attestation: Yes The following information was validated with the patient. Source: patient, old records reviewed Medical history: CHF, coronary artery disease, diabetes, hypertension, other Psychiatric history: depression, panic disorder - Past Surgical History Surgical History: hysterectomy - Social History Smoking Status: Never smoker Smokeless Tobacco Status: No Alcohol use: none Drug use: none - Family History Mother Living Status: Hx Family Cardiac Disorders: Yes Hx Family Endocrine Disorder: Yes Father Age: 71 Living Status: Age at : 71 Cause of : leukemia Hx Family Cardiac Disorders: Yes Hx Family Respiratory Disorders: No Hx Family Cancer: Yes Hx Family GI Disorders: No Hx Family Genitourinary Disorders: Yes Medications and Allergies Simvastatin 10 mg PO DAILY 06/18/15 [History] SitaGLIPtin [Januvia] 100 mg PO DAILY 06/18/15 [History] metFORMIN [Glucophage] 1,000 mg PO BIDWM 06/18/15 [History] Amlodipine Besylate 5 mg PO DAILY 04/25/17 [History] Bupivacaine 0.5% [Marcaine 0.5%] 0.89 mg IT DAILY 04/25/17 [History] Buspirone HCl [Buspar] 10 mg PO BID 04/25/17 [History] Citalopram Hydrobromide [Citalopram HBr] 10 mg PO DAILY 04/25/17 [History] Furosemide [Lasix] 40 mg PO BID 04/25/17 [History] Metoprolol [Lopressor] 12.5 mg PO BID 04/25/17 [History] Morphine Sulfate/Pf [Morphine IntraThecdal Pump] 1.79 mg IT DAILY 04/25/17 [ History] Potassium Chloride [K-Tab ER] 20 meq PO BID 04/25/17 [History] Venlafaxine XR (24 HR) [Effexor Xr] 150 mg PO BID 04/25/17 [History] Aspirin Enteric Coated [Aspirin EC] 81 mg PO DAILY #30 tablet. 04/28/17 [Rx] Ferrous Sulfate 325 mg PO BIDWM #60 tablet 04/28/17 [Rx] Ascorbic Acid [Vitamin C with Wendy Hips] 500 mg PO DAILY 07/06/17 [History] 3 Allergy/AdvReac Type Severity Reaction Status Date / Time Sulfa (Sulfonamide Allergy Swelling Verified 06/18/15 11:26 Antibiotics) of Lip/Tongue/Throat ROS unobtainable: other (patient unsure of why arrived, no complaints today) All Systems Review: The remainder of the systems were reviewed and are negative - Cardiovascular Cardiovascular: as per HPI Physical Examination Vital Signs, Last 4 Hours Temp Pulse Resp BP Pulse Ox 07/08/17 06:25 98.3 F 85 16 134/76 93 General: Conversant, No Apparent Distress HEENT: Atraumatic, Normocephaly, Mucus Membranes Moist Neck: No JVD, Normal carotid pulses Cardiac: Reg Rate and Rhythm, Normal S1 and S2, Other (Grade III/ murmur) Lungs: Normal Breath Sounds, No Wheeze, Rales, Rhonchi Neuro: Alert and responsive, No focal deficits noted Abdomen: Soft, Non-Tender Skin: No rashes noted on visualized skin Musculoskeletal: No Chest Wall Tenderness Extremities: No Clubbing, No Cyanosis, No Edema, Normal Pulses Results 07/07/17 04:19 07/06/17 12:37 Laboratory Tests 07/06/17 07/06/17 07/06/17 12:37 12:53 14:14 Hgb Hct Creatinine 0.67 Est GFR (Non-Af Amer) > 60 Troponin I 0.08 H* B-Natriuretic Peptide LDL Cholesterol, Calc Urine Nitrite Positive A Ur Culture Indicated? YES A 07/06/17 07/06/17 07/07/17 14:14 21:51 04:19 Hgb Hct Creatinine Est GFR (Non-Af Amer) Troponin I 0.08 H* 0.07 H* B-Natriuretic Peptide 248 H LDL Cholesterol, Calc Urine Nitrite Ur Culture Indicated? 07/07/17 07/07/17 04:19 04:19 Hgb 9.6 L Hct 32.0 L Creatinine Est GFR (Non-Af Amer) Troponin I B-Natriuretic Peptide LDL Cholesterol, Calc 63 Urine Nitrite Ur Culture Indicated? ITS Impressions Chest X-Ray 07/06/17 12:20 IMPRESSION: Cardiomegaly and pulmonary vascular congestion. Improving right basilar airspace disease. D/ / Hao Tucker MD / Hao Tucker MD Interpreting Provider: Hao Tucker MD Head CT 07/06/17 12:22 IMPRESSION: No acute intracranial abnormality. Stable cortical atrophy and chronic microvascular ischemia D/ / Vasyl Parada MD / Vasyl Parada MD Interpreting Provider: Vasyl Parada MD Active Medications Acetaminophen (Tylenol) 650 mg PO Q6HR PRN PRN Reason: Mild Pain/Fever Stop: 01/05/18 15:00 Amlodipine Besylate (Norvasc) 5 mg PO DAILY JOAN Stop: 01/06/18 09:01 Last Admin: 07/08/17 08:56 Dose: 5 mg Ascorbic Acid (Vitamin C) 500 mg PO DAILY JOAN Stop: 01/06/18 09:01 Last Admin: 07/08/17 08:54 Dose: 500 mg Aspirin (Aspirin Ec) 81 mg PO DAILY JOAN Stop: 01/06/18 09:01 Last Admin: 07/08/17 08:56 Dose: 81 mg Buspirone HCl (Buspar) 10 mg PO BID JOAN Stop: 01/05/18 21:01 Last Admin: 07/08/17 08:54 Dose: 10 mg Citalopram Hydrobromide (Celexa) 10 mg PO DAILY JOAN Stop: 01/06/18 09:01 Last Admin: 07/08/17 08:56 Dose: 10 mg Ferrous Sulfate (Ferrous Sulfate) 325 mg PO BIDWM JOAN Stop: 01/05/18 17:01 Last Admin: 07/08/17 08:54 Dose: 325 mg Furosemide (Lasix) 40 mg IVP BIDDIURETIC OJAN Stop: 01/06/18 17:01 Last Admin: 07/08/17 08:54 Dose: 40 mg Ceftriaxone Sodium 1,000 mg/ (Sterile Water) 10 mls @ 300 mls/hr IVP DAILY JOAN Stop: 01/06/18 09:01 Last Admin: 07/08/17 08:53 Dose: 300 mls/hr Metformin HCl (Glucophage) 1,000 mg PO BIDWM JOAN PRN Reason: Protocol Stop: 01/05/18 17:01 Last Admin: 07/08/17 08:56 Dose: 1,000 mg Metoprolol Tartrate (Lopressor) 12.5 mg PO BID JOAN Stop: 01/05/18 21:01 Last Admin: 07/08/17 08:56 Dose: 12.5 mg Naloxone HCl (Narcan) 0.4 mg IVP Q2MIN PRN PRN Reason: SEE COMMENTS Stop: 01/05/18 15:00 Pharmacy Profile Note (Patient Taking Own Medication) 0 each IT DAILY [facility] Stop: 01/06/18 09:01 Last Admin: 07/08/17 08:57 Dose: Not Given Potassium Chloride (Potassium Chloride) 20 meq PO BID [facility] Stop: 01/05/18 21:01 Last Admin: 07/08/17 08:54 Dose: 20 meq Simvastatin (Zocor) 10 mg PO DAILY JOAN Stop: 01/06/18 09:01 Last Admin: 07/08/17 08:54 Dose: 10 mg Sitagliptin Phosphate (Januvia) 100 mg PO DAILY [facility] Stop: 01/06/18 09:01 Last Admin: 07/08/17 08:56 Dose: 100 mg Tramadol HCl (Ultram) 50 mg PO Q6HR PRN PRN Reason: Moderate Pain Stop: 01/05/18 15:00 Venlafaxine HCl (Effexor Xr) 150 mg PO BID JOAN PRN Reason: Protocol Stop: 01/05/18 21:01 Last Admin: 07/08/17 08:56 Dose: 150 mg - Imaging and Cardiology Echo: report reviewed (04/2017: Impressions: LVEF 60-65%. Normal LV chamber size , wall thickness and function. Atypical septal motion consistent with post- operative status. Indeterminate diastolic function. Normal right ventricular structure and function. Severely dilated left atrium. Biprosthetic aortic valve replacement per reports, which appears well seated. Leaflets not well visualized. No significant prosthetic stenosis. Mean gradient 14 mmHg. No aortic regurgitation. Severe mitral annular calcification. Not documented, but cannot exclude prior surgical correction of mitral valve. No mitral regurgitation. Severe mitral stenosis. Mean gradient 14 mmHg (HR 95). No evidence of pulmonary hypertension. No previous echocardiograms for comparison. Left Ventricular Wall Motion: Rest Echo Findings All wall segments showed normal motion.) - EKG Interpretation EKG results cardiology: personally reviewed (Sinus rhythm with first-degree AV block in the 80s), normal ECG, sinus rhythm Consult Discharge Plan - Plan Referrals: Justin Chua DO [Primary Care Provider] - <Azalea Castro - Last Filed: 07/08/17 12:32> Date of Encounter: 07/08/17 - Attending Attestation I examined this patient and my medical decision-making was reviewed with the SENIOR ACCOUNT DIRECTOR. I agree with the documented findings, disposition and treatment plan as described. Ms. Hughes presented with AMS in setting of UTI. Incidentally discovered to have mild, flat and adynamic troponins which do not appear to represent ACS. Per patient and family, she had bioprosthetic aortic and mitral valve replacement at [facility] [place]. An echo done here at [place] in April demonstrated normal LVEF but with severe MS. Agree with obtaining records from [facility] and checking another echo. Continue asa, statin, BB. Appears euvolemic at present. Assessment and Plan Discussion w patient/family: The assessment and plan as outlined above was discussed with the patient and/or family members who expressed understanding and agreement. All questions were answered. Thank you for involving us in the care of your patient. Please call with any questions. History of Present Illness History of present illness: Ms. Hughes is a 67 year old female All Systems Review: The remainder of the systems were reviewed and are negative Physical Examination Vital Signs, Last 4 Hours Temp Pulse Resp BP Pulse Ox 07/08/17 10:26 97.9 F 78 16 120/62 96 Results 07/07/17 04:19 07/06/17 12:37
--- NOTE | 2017-07-08 11:08 | Internal Med Progress Note ---
Date of Encounter: 07/08/17 Time of Encounter: 11:07 - Assessment and plan (1) Acute metabolic encephalopathy Current Visit: Yes Status: Resolved Assessment and plan: Pt appears to be at baseline mental status after treating UTI. Continue supportive care and abx. (2) Urinary tract infection Current Visit: Yes Status: Acute Assessment and plan: Culture with E coli. Blood cx negative. Continue Rocephin at this time. Qualifiers: Urinary tract infection type: acute cystitis Hematuria presence: without hematuria Qualified Code(s): N30.00 - Acute cystitis without hematuria (3) CHF (congestive heart failure) Current Visit: Yes Status: Acute Assessment and plan: Pt had some pulmonary congestion on admit but has improved on current chest xray. Continue supportive care and diuresis. Qualifiers: Heart failure type: diastolic Heart failure chronicity: acute on chronic Qualified Code(s): I50.33 - Acute on chronic diastolic (congestive) heart failure (4) HTN (hypertension) Current Visit: Yes Status: Chronic Assessment and plan: Controlled at this time. Qualifiers: Hypertension type: essential hypertension Qualified Code(s): I10 - Essential (primary) hypertension (5) Diabetes mellitus Current Visit: No Status: Chronic Assessment and plan: Continue to monitor glucose and cover if needed. 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 She remains moderate to high risk due to potential for worsening clinical status. Ms Hughes is doing OK. No CP. Has some cough and wheeze. No fever. Mental status appears to be at baseline. Denies any GI issues. - Constitutional Vitals: Temp Pulse Resp BP Pulse Ox 97.9 F 78 16 120/62 96 07/08/17 10:26 07/08/17 10:26 07/08/17 10:26 07/08/17 10:26 07/08/17 10:26 General appearance: Present: A&O X 3, pleasant, answers questions appropriately - Head Head exam: Present: normocephalic - Eye Eye exam: Present: conjuntiva pink - ENT ENT exam: Present: mucous membranes dry - Respiratory Respiratory exam: Present: rhonchi, wheezes Additional comments: Scattered wheeze and rhonchi bilaterally. - Cardiovascular Cardiovascular exam: Present: RRR, systolic murmur. Absent: tachycardia - GI/Abdominal GI/Abdominal exam: Present: soft. Absent: tenderness - Extremities Exam Extremities exam: Present: warm. Absent: tenderness - Neurological Exam Neurological exam: Present: alert, oriented X3 - Skin Skin exam: Present: dry, warm Internal Medicine: Result - Labs CBC & Chem 7: 07/07/17 04:19 07/06/17 12:37 Consult Discharge Plan - Plan Referrals: Justin Chua DO [Primary Care Provider] -
[2017-07-09 05:21] LABS: Hematocrit 32.8 % (35.3-44.9); Mean Corpuscular HGB Conc 30.5 g/dL (31.6-35.5); Mean Corpuscular Hemoglobin 24.5 pg (28.0-33.3); Mean Corpuscular Volume 80.4 fL (83.0-100.0); Mean Platelet Volume 9.3 fL (9.4-12.4); Platelet Count 207 K/mcL (140-400); Red Blood Count 4.08 M/mcL (3.82-4.97); Red Cell Distribution Width 17.6 % (11.5-14.5)
[2017-07-09 05:40] LABS: BUN/Creatinine Ratio 32 (6-26); Blood Urea Nitrogen 22 mg/dL (8-23); Calcium 9.2 mg/dL (8.6-10.3); Carbon Dioxide 28 mEq/L (23-29); Chloride 97 mEq/L (98-107); Glucose 110 mg/dL (70-105); Magnesium 1.9 mg/dL (1.6-2.6); Osmolality,Calculated 280 (280-300); Potassium 4.3 mEq/L (3.5-5.1); Sodium 133 mEq/L (136-145); eGFR For African Americans > 60 (> 60); eGFR For Non-African Americans > 60 (> 60)
[2017-07-09] MEDS: Furosemide 40 MG/4 ML VIAL IVP SCH ×2 (07:32→16:48)
[2017-07-09] MEDS: cefTRIAXone 1,000 MG in Water for inj. (sterile) 20 ML 10 ML IVP SCH (07:33)
[2017-07-09] MEDS: Aspirin Enteric Coated 81 MG Tablet PO SCH (07:35)
[2017-07-09] MEDS: *HR* Metformin 500 MG TABLET PO SCH (07:35)
[2017-07-09] MEDS: *HR* SitaGLIPtin 100 MG TABLET PO SCH (07:36)
[2017-07-09] MEDS: Venlafaxine XR (24 HR) 150 MG CAP.ER.24H PO SCH ×2 (07:36→21:25)
[2017-07-09] MEDS: BUPIVACAINE IT SCH (07:37)
[2017-07-09] MEDS: amLODIPine 5 MG TABLET PO SCH (07:37)
[2017-07-09] MEDS: MORPHINE SULFATE IT SCH (07:37)
[2017-07-09] MEDS: Ascorbic Acid 500 MG TABLET PO SCH (07:37)
--- NOTE | 2017-07-09 10:30 | Cardiology Progress Note ---
Date of Encounter: 07/09/17 Time of Encounter: 10:30 Assessment and Plan (1) Urinary tract infection Current Visit: Yes Status: Acute Per Cardiology: Apparent history of recurrent UTIs. Management per primary service. Qualifiers: Urinary tract infection type: acute cystitis Hematuria presence: without hematuria Qualified Code(s): N30.00 - Acute cystitis without hematuria (2) Elevated troponin I measurement Current Visit: Yes Status: Acute Per Cardiology: Patient denies any chest pain. Troponins mildly elevated, flat, adynamic with peak of 0.08 in setting of UTI and noted to have severe mitral stenosis on echo from April 2017. Medical records received from [facility] [place] and patient underwent catheterization February 2017 which showed patent mid LAD stent, distal LAD 50% , OM1 40% lesions. On aspirin, statin, beta alpesh. No further ischemic evaluation warranted, continued medical management. (3) H/O heart valve replacement with bioprosthetic valve Current Visit: No Status: Chronic Per Cardiology: Medical records received from [facility] [place] and patient underwent bioprosthetic aortic valve and mitral valve replacement as well as ligation of left atrial appendage 02/06/2017. Of note, echo from April 2017 showed EF 60-65%, severely dilated left atrium , normal RV structure and function, indeterminate diastolic function, bioprosthetic aortic valve well seated with no significant prosthetic stenosis with mean gradient of 14 mmHg, no aortic regurgitation. Also, showed severe mitral annular calcification and "cannot exclude prior surgical correction of mitral valve ", no mitral regurgitation, severe mitral stenosis with mean gradient of 14 mmHg. No pulmonary hypertension noted. No cardiology consult noted during that hospital stay. Current echo shows severe mitral stenosis with mean gradient of 13 mmHg. I discussed with patient and family regarding potential FAVIAN for further evaluation , they are contemplating if her left proceed here or with her primary control operator. Discussed with primary service. Discussion w patient/family: carmen you for involving us in the care of your patient. Please call with any questions. Subjective Principal diagnosis: Mild troponin elevation, severe mitral stenosis Interval history: Patient seen with daughter at bedside. She denies any chest pain or palpitations. Reports shortness of breath has improved. Denies any new concerns or complaints. Reports utilizes home oxygen at night and BiPAP. Objective Vital Signs, Last 4 Hours Temp Pulse Resp BP Pulse Ox 07/09/17 08:23 98 05/07/18 07:44 98.1 F 84 14 148/76 98 General: Conversant, No Apparent Distress HEENT: Atraumatic, Normocephaly, Mucus Membranes Moist Neck: No JVD, Normal carotid pulses Cardiac: Reg Rate and Rhythm, Normal S1 and S2, No Murmur Lungs: Normal Breath Sounds, Other (Few scattered rhonchi at the bilateral bases ) Neuro: Alert and responsive, No focal deficits noted Abdomen: Soft, Non-Tender Skin: No rashes noted on visualized skin Musculoskeletal: No Chest Wall Tenderness Extremities: No Clubbing, No Cyanosis, No Edema, Normal Pulses Results 07/09/17 04:52 07/09/17 04:52 Lab Results Laboratory Tests 07/06/17 21:51 Troponin I 0.08 H* Impressions Echocardiogram 07/07/17 12:32 Impressions: LVEF 60-65%. Atypical septal motion Indeterminate diastolic function. Normal right ventricular structure and function. Bioprosthetic aortic valve not well visualized. Normal function by Doppler. By history, patient is s/p bioprosthetic mitral valve replacement. Valve is very poorly visualized due to dense mitral annular calcification. Doppler gradient 13 mmHg at 87 bpm suggests severe mitral stenosis. PHT, MVA not obtained. Mild tricuspid regurgitation. Mild pulmonary hypertension. Mild pulmonic regurgitation. Left Ventricular Wall Motion: Rest Echo Findings All wall segments showed normal motion. Findings: Study Quality * Technically adequate exam. ECG Findings * Normal sinus rhythm. Left Ventricle * LVEF 60-65%. * Normal LV chamber size, wall thickness and function. * Indeterminate diastolic function. * Atypical septal motion consistent with post-operative status. Right Ventricle * Normal right ventricular structure and function. Left Atrium * Severely dilated left atrium. Right Atrium * Normal right atrial size. Aortic Valve * Bioprosthetic aortic valve not well visualized. * Trace aortic regurgitation. * No aortic stenosis. Mitral Valve * Mitral valve not well visualized. * Dense mitral annular calcification. * Trace mitral regurgitation. * Severe mitral stenosis by MG. Tricuspid Valve * Mild tricuspid regurgitation. * Normal tricuspid valve structure. * Estimated RA pressure is 8 mmHg. * Estimated RVSP is 40 mmHg. * Mild pulmonary hypertension. Pulmonic Valve * Pulmonic valve is not well visualized. * No pulmonic stenosis. * Mild pulmonic regurgitation. Pulmonary Artery * Pulmonary artery not well visualized. Aorta * Normally sized aortic root. Pericardium * There is no pericardial effusion present. Interatrial Septum * No evidence of PFO by color Doppler. IVC * The IVC is not dilated. * < 50% respiratory change. Chest X-Ray 07/08/17 11:08 IMPRESSION: Bibasilar atelectasis. The pulmonary vascular congestion has diminished when correlated to one day earlier. D/ / 07/08/2017 11:49:32 Cuate Mcgee MD / devi Interpreting Provider: Cuate Mcgee MD Active Medications Acetaminophen (Tylenol) 650 mg PO Q6HR PRN PRN Reason: Mild Pain/Fever Stop: 01/05/18 15:00 Amlodipine Besylate (Norvasc) 5 mg PO DAILY JOAN Stop: 01/06/18 09:01 Last Admin: 07/09/17 07:37 Dose: 5 mg Ascorbic Acid (Vitamin C) 500 mg PO DAILY JOAN Stop: 01/06/18 09:01 Last Admin: 07/09/17 07:37 Dose: 500 mg Aspirin (Aspirin Ec) 81 mg PO DAILY JOAN Stop: 01/06/18 09:01 Last Admin: 07/09/17 07:35 Dose: 81 mg Buspirone HCl (Buspar) 10 mg PO BID JOAN Stop: 01/05/18 21:01 Last Admin: 07/09/17 07:35 Dose: 10 mg Citalopram Hydrobromide (Celexa) 10 mg PO DAILY JOAN Stop: 01/06/18 09:01 Last Admin: 07/09/17 07:35 Dose: 10 mg Ferrous Sulfate (Ferrous Sulfate) 325 mg PO BIDWM JOAN Stop: 01/05/18 17:01 Last Admin: 07/09/17 07:35 Dose: 325 mg Furosemide (Lasix) 40 mg IVP BIDDIURETIC JOAN Stop: 01/06/18 17:01 Last Admin: 07/09/17 07:32 Dose: 40 mg Ceftriaxone Sodium 1,000 mg/ (Sterile Water) 10 mls @ 300 mls/hr IVP DAILY JOAN Stop: 01/06/18 09:01 Last Infusion: 07/09/17 07:35 Dose: Infused Metformin HCl (Glucophage) 1,000 mg PO BIDWM JOAN PRN Reason: Protocol Stop: 01/05/18 17:01 Last Admin: 07/09/17 07:35 Dose: 1,000 mg Metoprolol Tartrate (Lopressor) 12.5 mg PO BID JOAN Stop: 01/05/18 21:01 Last Admin: 07/09/17 07:36 Dose: 12.5 mg Naloxone HCl (Narcan) 0.4 mg IVP Q2MIN PRN PRN Reason: SEE COMMENTS Stop: 01/05/18 15:00 Pharmacy Profile Note (Patient Taking Own Medication) 0 each IT DAILY JOAN Stop: 01/06/18 09:01 Last Admin: 07/09/17 07:37 Dose: Not Given Pharmacy Profile Note (Patient Taking Own Medication) 0.89 each IT DAILY [facility] Stop: 01/08/18 09:01 Last Admin: 07/09/17 07:37 Dose: Not Given Potassium Chloride (Potassium Chloride) 20 meq PO BID JOAN Stop: 01/05/18 21:01 Last Admin: 07/09/17 07:37 Dose: 20 meq Simvastatin (Zocor) 10 mg PO DAILY JOAN Stop: 01/06/18 09:01 Last Admin: 07/09/17 07:38 Dose: 10 mg Sitagliptin Phosphate (Januvia) 100 mg PO DAILY JOAN Stop: 01/06/18 09:01 Last Admin: 07/09/17 07:36 Dose: 100 mg Tramadol HCl (Ultram) 50 mg PO Q6HR PRN PRN Reason: Moderate Pain Stop: 01/05/18 15:00 Venlafaxine HCl (Effexor Xr) 150 mg PO BID JOAN PRN Reason: Protocol Stop: 01/05/18 21:01 Last Admin: 07/09/17 07:36 Dose: 150 mg - Imaging and Cardiology Echo: report reviewed - EKG Interpretation EKG results cardiology: other (Telemetry reviewed with average heart rate the past 12 hours 80, no significant events noted, currently sinus rhythm in the 70s ) Consult Discharge Plan - Plan Referrals: Justin Chua DO [Primary Care Provider] -
--- NOTE | 2017-07-09 14:05 | Internal Med Progress Note ---
Date of Encounter: 07/09/17 Time of Encounter: 14:05 - Assessment and plan (1) Acute metabolic encephalopathy Current Visit: Yes Status: Resolved Assessment and plan: Appears to be at baseline mentation today. Continue supportive care. Daughter concerned she is very weak - will ask PT/OT to eval. (2) Urinary tract infection Current Visit: Yes Status: Acute Assessment and plan: Culture with E coli. Continue Rocephin at this time. Qualifiers: Urinary tract infection type: acute cystitis Hematuria presence: without hematuria Qualified Code(s): N30.00 - Acute cystitis without hematuria (3) CHF (congestive heart failure) Current Visit: Yes Status: Acute Assessment and plan: Continue diuresis at this time. CXR improving but clinical still has fluid on exam. Qualifiers: Heart failure type: diastolic Heart failure chronicity: acute on chronic Qualified Code(s): I50.33 - Acute on chronic diastolic (congestive) heart failure (4) HTN (hypertension) Current Visit: Yes Status: Chronic Assessment and plan: Controlled at this time. Qualifiers: Hypertension type: essential hypertension Qualified Code(s): I10 - Essential (primary) hypertension (5) Diabetes mellitus Current Visit: No Status: Chronic Assessment and plan: Continue to monitor glucose and cover if needed. Qualifiers: Diabetes mellitus type: type 2 Diabetes mellitus assisted insulin use: without petroleum terminal plant operator use Diabetes mellitus complication status: without complication Qualified Code(s): E11.9 - Type 2 diabetes mellitus without complications (6) Chronic pain Current Visit: No Status: Chronic Assessment and plan: Chronic issue Qualifiers: Chronic pain type: other chronic pain Qualified Code(s): G89.29 - Other chronic pain (7) DVT prophylaxis Current Visit: No Status: Acute Assessment and plan: Subqu heparin - Time Spent With Patient Total time spent is greater than 50% in coordination of care (as documented) at patient's floor/unit and/or counseling patient: - Subjective Interval history: Ms Hughes is currently admitted for acute encephalopathy due to UTI. She remains moderate to high risk due to potential for worsening clinical status. Ms Hughes feels OK. Her daughter feels she is very weak. Confusion seems to have mostly resolved. No fever. No CP. No significant dyspnea. - Constitutional Vitals: Temp Pulse Resp BP Pulse Ox 98.1 F 81 16 138/78 96 07/09/17 11:19 07/09/17 11:19 07/09/17 11:19 07/09/17 11:19 07/09/17 11:19 General appearance: Present: A&O X 3, pleasant, answers questions appropriately - Head Head exam: Present: normocephalic - Eye Eye exam: Present: conjuntiva pink - ENT ENT exam: Present: mucous membranes dry - Respiratory Respiratory exam: Present: rhonchi, wheezes Additional comments: Mostly on R side. - Cardiovascular Cardiovascular exam: Present: diastolic murmur, RRR. Absent: tachycardia - GI/Abdominal GI/Abdominal exam: Present: soft. Absent: tenderness - Extremities Exam Extremities exam: Present: warm. Absent: tenderness - Neurological Exam Neurological exam: Present: alert, oriented X3 - Skin Skin exam: Present: dry, warm Internal Medicine: Result - Labs CBC & Chem 7: 07/09/17 04:52 07/09/17 04:52 Labs: Short CBC 07/09/17 Range/Units 04:52 WBC 4.2 L (4.3-11.1) K/mcL Hgb 10.0 L (11.5-15.4) g/dL Hct 32.8 L (35.3-44.9) % Plt Count 207 (140-400) K/mcL BMP 07/09/17 04:52 Sodium 133 L Potassium 4.3 Chloride 97 L Carbon Dioxide 28 BUN 22 Creatinine 0.68 Glucose 110 H Calcium 9.2 - Impressions Impressions Echocardiogram 07/07/17 12:32 Impressions: LVEF 60-65%. Atypical septal motion Indeterminate diastolic function. Normal right ventricular structure and function. Bioprosthetic aortic valve not well visualized. Normal function by Doppler. By history, patient is s/p bioprosthetic mitral valve replacement. Valve is very poorly visualized due to dense mitral annular calcification. Doppler gradient 13 mmHg at 87 bpm suggests severe mitral stenosis. PHT, MVA not obtained. Mild tricuspid regurgitation. Mild pulmonary hypertension. Mild pulmonic regurgitation. Left Ventricular Wall Motion: Rest Echo Findings All wall segments showed normal motion. Findings: Study Quality * Technically adequate exam. ECG Findings * Normal sinus rhythm. Left Ventricle * LVEF 60-65%. * Normal LV chamber size, wall thickness and function. * Indeterminate diastolic function. * Atypical septal motion consistent with post-operative status. Right Ventricle * Normal right ventricular structure and function. Left Atrium * Severely dilated left atrium. Right Atrium * Normal right atrial size. Aortic Valve * Bioprosthetic aortic valve not well visualized. * Trace aortic regurgitation. * No aortic stenosis. Mitral Valve * Mitral valve not well visualized. * Dense mitral annular calcification. * Trace mitral regurgitation. * Severe mitral stenosis by MG. Tricuspid Valve * Mild tricuspid regurgitation. * Normal tricuspid valve structure. * Estimated RA pressure is 8 mmHg. * Estimated RVSP is 40 mmHg. * Mild pulmonary hypertension. Pulmonic Valve * Pulmonic valve is not well visualized. * No pulmonic stenosis. * Mild pulmonic regurgitation. Pulmonary Artery * Pulmonary artery not well visualized. Aorta * Normally sized aortic root. Pericardium * There is no pericardial effusion present. Interatrial Septum * No evidence of PFO by color Doppler. IVC * The IVC is not dilated. * < 50% respiratory change. Consult Discharge Plan - Plan Referrals: Justin Chua, [Primary Care Provider] -
[2017-07-09] MEDS ORDERED: *HR* Dextrose 50 % in Water (Syg) 50 ML SYRINGE IVP PRN (15:46)
[2017-07-09] MEDS ORDERED: Dextrose Gel 15 GM/37.5 ML TUBE PO PRN ×2 (15:46)
[2017-07-09] MEDS ORDERED: D5% in Water 1,000 ML IVC PRN (15:46)
[2017-07-09] MEDS: *HR* Heparin 5,000 UNIT/ML VIAL SQ SCH (17:35)
[2017-07-10] MEDS: *HR* Heparin 5,000 UNIT/ML VIAL SQ SCH ×2 (05:39→17:50)
[2017-07-10] MEDS: Furosemide 40 MG/4 ML VIAL IVP SCH ×2 (07:25→16:56)
[2017-07-10] MEDS: Aspirin Enteric Coated 81 MG Tablet PO SCH (07:25)
[2017-07-10] MEDS: Venlafaxine XR (24 HR) 150 MG CAP.ER.24H PO SCH ×2 (07:26→21:09)
[2017-07-10] MEDS: amLODIPine 5 MG TABLET PO SCH (07:27)
[2017-07-10] MEDS: *HR* SitaGLIPtin 100 MG TABLET PO SCH (07:27)
[2017-07-10] MEDS: cefTRIAXone 1,000 MG in Water for inj. (sterile) 20 ML 10 ML IVP SCH (07:28)
[2017-07-10] MEDS: BUPIVACAINE IT SCH (07:28)
[2017-07-10] MEDS: MORPHINE SULFATE IT SCH (07:28)
[2017-07-10] MEDS: Ascorbic Acid 500 MG TABLET PO SCH (07:29)
--- NOTE | 2017-07-10 14:52 | Internal Med Progress Note ---
Date of Encounter: 07/10/17 Time of Encounter: 14:50 - Assessment and plan (1) Acute metabolic encephalopathy Current Visit: Yes Status: Resolved Assessment and plan: Appears to be at baseline mentation. Daughter states she is at baseline today. Daughter concerned she is very weak - will ask PT/OT to eval. - Pending swing bed approval - Omnicef course to complete. (2) Urinary tract infection Current Visit: Yes Status: Acute Assessment and plan: Culture with E coli. Sensitivities returned. Switch to Omnicef to complete additional 5 days therapy. Qualifiers: Urinary tract infection type: acute cystitis Hematuria presence: without hematuria Qualified Code(s): N30.00 - Acute cystitis without hematuria (3) Diabetes mellitus Current Visit: No Status: Chronic Assessment and plan: Monitor glucose. ISS if needed. 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 Qualifiers: Chronic pain type: other chronic pain Qualified Code(s): G89.29 - Other chronic pain (5) HTN (hypertension) Current Visit: Yes Status: Chronic Assessment and plan: Controlled at this time. Qualifiers: Hypertension type: essential hypertension Qualified Code(s): I10 - Essential (primary) hypertension (6) CHF (congestive heart failure) Current Visit: Yes Status: Acute Assessment and plan: Continue diuresis at this time. CXR improving but clinical still has fluid on exam. Qualifiers: Heart failure type: diastolic Heart failure chronicity: acute on chronic Qualified Code(s): I50.33 - Acute on chronic diastolic (congestive) heart failure (7) DVT prophylaxis Current Visit: No Status: Acute Assessment and plan: Heparin SQ - Time Spent With Patient Total time spent is greater than 50% in coordination of care (as documented) at patient's floor/unit and/or counseling patient: - Subjective Interval history: No acute events. No complaints. Patient does note however, for past 3 weeks feeling dizzy, room spinning even when she is sitting down. Has some left sided tinnitus with it as well. Daughter at bedside states this is not related to her altered mental status on admission. - Constitutional Vitals: Temp Pulse Resp BP Pulse Ox 98.0 F 87 16 118/69 97 07/10/17 07:15 07/10/17 07:15 07/10/17 07:15 07/10/17 07:15 07/10/17 07:15 General appearance: Present: A&O X 3, pleasant, answers questions appropriately Exam: - Head Head exam: Present: normocephalic - Eye Eye exam: Present: conjuntiva pink - ENT ENT exam: Present: mucous membranes dry - Respiratory Respiratory exam: Present: rhonchi, wheezes - Cardiovascular Cardiovascular exam: Present: diastolic murmur, RRR. Absent: tachycardia - GI/Abdominal GI/Abdominal exam: Present: soft. Absent: tenderness - Extremities Exam Extremities exam: Present: warm. Absent: tenderness - Neurological Exam Neurological exam: Present: alert, oriented X3 - Skin Skin exam: Present: dry, warm Internal Medicine: Result - Labs CBC & Chem 7: 07/09/17 04:52 07/09/17 04:52 Consult Discharge Plan - Plan Referrals: Justin Chua DO [Primary Care Provider] - 07/17/17 9:30 am (Patients pcp doesn't have any avaliable appoitments so a appoitment was made with Stacey Mercedes)
[2017-07-10] MEDS: Cefdinir 300 MG CAPSULE PO SCH (21:07)
[2017-07-11] MEDS: *HR* Heparin 5,000 UNIT/ML VIAL SQ SCH (05:52)
[2017-07-11 06:46] LABS: Basophils % 0.6 %; Eosinophils % 5.1 %
[2017-07-11 06:50] LABS: Eosinophils # 0.2 K/mcL (0.0-0.6); Hematocrit 37.2 % (35.3-44.9); Hemoglobin 11.2 g/dL (11.5-15.4); Immature Platelets 2.7 % (1.1-6.1); Lymphocytes # 1.9 K/mcL (0.6-4.6); Lymphocytes % 54.8 %; Mean Corpuscular HGB Conc 30.1 g/dL (31.6-35.5); Mean Corpuscular Hemoglobin 24.2 pg (28.0-33.3); Mean Corpuscular Volume 80.3 fL (83.0-100.0); Mean Platelet Volume 9.6 fL (9.4-12.4); Monocytes # 0.4 K/mcL (0.0-1.3); Monocytes % 11.4 %; Platelet Count 266 K/mcL (140-400); Red Blood Count 4.63 M/mcL (3.82-4.97); Red Cell Distribution Width 17.2 % (11.5-14.5); Segmented Neutrophils % 28.1 %
[2017-07-11 06:59] LABS: BUN/Creatinine Ratio 45 (6-26); Blood Urea Nitrogen 25 mg/dL (8-23); Calcium 9.7 mg/dL (8.6-10.3); Carbon Dioxide 33 mEq/L (23-29); Chloride 96 mEq/L (98-107); Glucose 116 mg/dL (70-105); Osmolality,Calculated 285 (280-300); Potassium 4.2 mEq/L (3.5-5.1); Sodium 135 mEq/L (136-145); eGFR For African Americans > 60 (> 60); eGFR For Non-African Americans > 60 (> 60)
[2017-07-11 07:21] LABS: Platelet Estimate Normal (Normal)
[2017-07-11 07:22] LABS: Reactive Lymphocytes Present (Not Present)
[2017-07-11] MEDS: Furosemide 40 MG/4 ML VIAL IVP SCH (08:44)
[2017-07-11] MEDS: Venlafaxine XR (24 HR) 150 MG CAP.ER.24H PO SCH (08:45)
[2017-07-11] MEDS: Cefdinir 300 MG CAPSULE PO SCH (08:45)
[2017-07-11] MEDS: Ascorbic Acid 500 MG TABLET PO SCH (08:45)
[2017-07-11] MEDS: *HR* SitaGLIPtin 100 MG TABLET PO SCH (08:46)
[2017-07-11] MEDS: Aspirin Enteric Coated 81 MG Tablet PO SCH (08:46)
[2017-07-11] MEDS: amLODIPine 5 MG TABLET PO SCH (08:46)
[2017-07-11] MEDS: BUPIVACAINE IT SCH (08:47)
[2017-07-11] MEDS: MORPHINE SULFATE IT SCH (08:47)
--- NOTE | 2017-07-11 11:29 | Internal Med Progress Note ---
Date of Encounter: 07/11/17 Time of Encounter: 11:27 - Assessment and plan (1) Acute metabolic encephalopathy Current Visit: Yes Status: Resolved Assessment and plan: Likely from UTI Appears to be at baseline mentation. Daughter states she is at baseline today. PT/OT recs Home PT but weakness concerned, awaiting if approved for swing bed - Continue Omnicef (2) Urinary tract infection Current Visit: Yes Status: Acute Assessment and plan: Culture with E coli. Sensitivities returned. Continue Omnicef Qualifiers: Urinary tract infection type: acute cystitis Hematuria presence: without hematuria Qualified Code(s): N30.00 - Acute cystitis without hematuria (3) Diabetes mellitus Current Visit: No Status: Chronic Assessment and plan: Monitor glucose. Qualifiers: Diabetes mellitus type: type 2 Diabetes mellitus superintendent container terminal insulin use: without custodial use Diabetes mellitus complication status: without complication Qualified Code(s): E11.9 - Type 2 diabetes mellitus without complications (4) Chronic pain Current Visit: No Status: Chronic Assessment and plan: Chronic issue , continue current treatment. Qualifiers: Chronic pain type: other chronic pain Qualified Code(s): G89.29 - Other chronic pain (5) HTN (hypertension) Current Visit: Yes Status: Chronic Assessment and plan: Controlled at this time. Qualifiers: Hypertension type: essential hypertension Qualified Code(s): I10 - Essential (primary) hypertension (6) CHF (congestive heart failure) Current Visit: Yes Status: Acute Assessment and plan: Continue diuresis at this time. CXR improving but clinical still has fluid on exam. Qualifiers: Heart failure type: diastolic Heart failure chronicity: acute on chronic Qualified Code(s): I50.33 - Acute on chronic diastolic (congestive) heart failure (7) DVT prophylaxis Current Visit: No Status: Acute Assessment and plan: Heparin SQ - Time Spent With Patient Total time spent is greater than 50% in coordination of care (as documented) at patient's floor/unit and/or counseling patient: - Subjective Interval history: No acute events. No complaints. Patient does note however, for past 3 weeks feeling dizzy, room spinning even when she is sitting down. Has some left sided tinnitus with it as well. Daughter at bedside states this is not related to her altered mental status on admission. 07/11: no acute events, at baseline per daughter, patient states she is doing well. - Constitutional Vitals: Temp Pulse Resp BP Pulse Ox 98.2 F 72 18 104/67 97 07/11/17 11:25 07/11/17 11:25 07/11/17 11:25 07/11/17 11:25 07/11/17 11:25 General appearance: Present: A&O X 3, pleasant, answers questions appropriately Exam: - Head Head exam: Present: normocephalic - Eye Eye exam: Present: conjuntiva pink - ENT ENT exam: Present: mucous membranes dry - Respiratory Respiratory exam: Present: rhonchi, wheezes - Cardiovascular Cardiovascular exam: Present: diastolic murmur, RRR. Absent: tachycardia - GI/Abdominal GI/Abdominal exam: Present: soft. Absent: tenderness - Extremities Exam Extremities exam: Present: warm. Absent: tenderness - Neurological Exam Neurological exam: Present: alert, oriented X3 - Skin Skin exam: Present: dry, warm Internal Medicine: Result - Labs CBC & Chem 7: 07/11/17 05:34 07/11/17 05:34 Labs: Short CBC 07/11/17 Range/Units 05:34 WBC 3.5 L (4.3-11.1) K/mcL Hgb 11.2 L (11.5-15.4) g/dL Hct 37.2 (35.3-44.9) % Plt Count 266 (140-400) K/mcL Neutrophils # 1.0 L (1.6-8.9) K/mcL BMP 07/11/17 05:34 Sodium 135 L Potassium 4.2 Chloride 96 L Carbon Dioxide 33 H BUN 25 H Creatinine 0.56 L Glucose 116 H Calcium 9.7 Consult Discharge Plan - Plan Referrals: Justin Chua DO [Primary Care Provider] - 07/17/17 9:30 am (Patients pcp doesn't have any avaliable appoitments so a appoitment was made with Stacey Mercedes)
--- NOTE | 2017-07-11 15:15 | Discharge Summary ---
Orders not resulted at time of discharge: Pending orders 07/12/17 04:00 BMP [Basic Metabolic Panel] AM 0400 Complete Blood Count [HEME] AM 0400 Date of Encounter: 07/11/17 Time of Encounter: 15:12 - Discharge Diagnosis (1) Acute metabolic encephalopathy Priority: Primary Status: Resolved Assessment and Plan: Likely from UTI Appears to be at baseline mentation. Daughter states she is at baseline today. - Home with Omnicef (2) Urinary tract infection Priority: Secondary Status: Acute Qualifiers: Urinary tract infection type: acute cystitis Hematuria presence: without hematuria Qualified Code(s): N30.00 - Acute cystitis without hematuria (3) Diabetes mellitus Priority: Secondary Status: Chronic Qualifiers: Diabetes mellitus type: type 2 Diabetes mellitus salvage determiner insulin use: without usp use Diabetes mellitus complication status: without complication Qualified Code(s): E11.9 - Type 2 diabetes mellitus without complications (4) Chronic pain Priority: Secondary Status: Chronic Qualifiers: Chronic pain type: other chronic pain Qualified Code(s): G89.29 - Other chronic pain (5) HTN (hypertension) Priority: Secondary Status: Chronic Qualifiers: Hypertension type: essential hypertension Qualified Code(s): I10 - Essential (primary) hypertension (6) CHF (congestive heart failure) Priority: Secondary Status: Acute Qualifiers: Heart failure type: diastolic Heart failure chronicity: acute on chronic Qualified Code(s): I50.33 - Acute on chronic diastolic (congestive) heart failure (7) DVT prophylaxis Priority: Secondary Status: Acute Hospital course: Ms. Hughes is a 67 year old female with history of recurrent UTI, congestive heart failure, diabetes, CAD had a CABG in February of last year, hypertension, anemia and depression patient brought in by daughter due to mental status changes of being more unresponsive and confused In ER she is awake alert has some mild abdominal discomfort and dysuria CT of the head was unremarkable UA shows UTI patient admitted for treatment of UTI In the past she has had mental status changes when she had pneumonia or UTI per daughter. White count was normal. Patient was started on Rocephin, cultures were obtained first. She was found to have mild elevation in troponin and so Cardiology consulted because of the mental status changes and history of CHF. Troponin level peaked at 0.08. Cardiology found that this is not likely cardiac ischemia. Patient improved with antibiotics and urine sensitivities returned E coli and based on results she was discharged to [facility] bed with Omnicef. She was discharged in stable condition. - Time Spent with Patient Total time spent providing and/or coordinating discharge services: - Discharge Medications Home Medications: Simvastatin 10 mg PO DAILY 06/18/15 [History] SitaGLIPtin [Januvia] 100 mg PO DAILY 06/18/15 [History] metFORMIN [Glucophage] 1,000 mg PO BIDWM 06/18/15 [History] Amlodipine Besylate 5 mg PO DAILY 04/25/17 [History] Bupivacaine 0.5% [Marcaine 0.5%] 0.89 mg IT DAILY 04/25/17 [History] Buspirone HCl [Buspar] 10 mg PO BID 04/25/17 [History] Citalopram Hydrobromide [Citalopram HBr] 10 mg PO DAILY 04/25/17 [History] Furosemide [Lasix] 40 mg PO BID 04/25/17 [History] Metoprolol [Lopressor] 12.5 mg PO BID 04/25/17 [History] Morphine Sulfate/Pf [Morphine IntraThecdal Pump] 1.79 mg IT DAILY 04/25/17 [ History] Potassium Chloride [K-Tab ER] 20 meq PO BID 04/25/17 [History] Venlafaxine XR (24 HR) [Effexor Xr] 150 mg PO BID 04/25/17 [History] Aspirin Enteric Coated [Aspirin EC] 81 mg PO DAILY #30 tablet. 04/28/17 [Rx] Ferrous Sulfate 325 mg PO BIDWM #60 tablet 04/28/17 [Rx] Ascorbic Acid [Vitamin C with Wendy Hips] 500 mg PO DAILY 07/06/17 [History] Cefdinir [Omnicef] 300 mg PO BID 5 Days #10 capsule 07/11/17 [Rx] Allergies/Adverse Reactions: 3 Allergy/AdvReac Type Severity Reaction Status Date / Time Sulfa (Sulfonamide Allergy Swelling Verified 06/18/15 11:26 Antibiotics) of Lip/Tongue/Throat Date of admission: 07/07/17 11:57 Primary care physician: Justin Chua, Consults: 07/07/17 12:31 Consult to Cardiology [CONS] Routine Comment: Consulting Provider: Cardiology [place] Reason for Consult: positive troponin and chf Call Completed: No 07/09/17 09:13 Consult to Nurse Navigator [CONS] Routine Comment: chf education 07/09/17 14:05 Consult to Physical Therapy [CONS] Routine Comment: Evaluate, develop and implement POC Reason for Consult: Pt admitted for UTI and confusion. Family concerned about continued weakness. Does patient have active BEDREST order?: No Is patient medically & hemodynamically stable?: Yes Patient assessed for mobility or mobilized this visit?: Yes 07/09/17 14:06 OT [Consult to Occupational Therapy] [CONS] Routine Comment: Evaluate, develop and implement POC Reason for Consult: Continued weakness. Admitted with UTI. Does patient have active BEDREST order?: No Is patient medically & hemodynamically stable?: Yes Patient assessed for mobility or mobilized this visit?: Yes Discharging clinician: Miley Saba - Constitutional Vitals: Temp Pulse Resp BP Pulse Ox 98.2 F 72 18 104/67 97 07/11/17 11:25 07/11/17 11:25 07/11/17 11:25 07/11/17 11:25 07/11/17 11:25 General appearance: Present: A&O X 3, pleasant, answers questions appropriately - Head Head exam: Present: atraumatic, normocephalic - Eye Eye exam: Present: PERRL, conjuntiva pink, sclera anicteric Pupils: Present: PERRL - Neck Neck exam general surgery: Present: supple, trachea midline. Absent: lymphadenopathy - Respiratory Respiratory exam: Present: CTAB. Absent: accessory muscle use, rales, rhonchi, wheezes - Cardiovascular Cardiovascular exam: Present: RRR, +S1, +S2. Absent: diastolic murmur, gallop, rubs, systolic murmur - GI/Abdominal GI/Abdominal exam: Present: normal bowel sounds, soft, no peritoneal signs. Absent: distended, tenderness - Extremities Exam Extremities exam: Present: warm, radial pulses palpable and symmetrical. Absent : calf tenderness, cyanotic, pedal edema - Neurological Exam Neurological exam: Present: CN II-XII intact, oriented X3, no focal deficits. Absent: pronater drift, facial droop, speech deficit - Skin Skin exam: Present: dry, intact - Patient Status Disposition: Transfer Hospital Swing Bed Condition: Fair Functional capacity at discharge: independent ambulation Overall status at discharge: patient is progressing back to baseline - Discharge Instructions Follow Up With: Justin Chua, [Primary Care Provider] - 07/17/17 9:30 am (Patients pcp doesn't have any avaliable appoitments so a appoitment was made with Stacey Mercedes) - Diet and Activity Activity: as per physical therapy Diet: advance to your usual diet
--- NOTE | 2017-07-11 15:23 | Physician Discharge Referral ---
ExtendedCare Referral Info Institutional Level of Care: Skilled (Swing) - Diagnosis (1) Acute metabolic encephalopathy Priority: Primary Status: Resolved (2) Urinary tract infection Priority: Secondary Status: Acute (3) Diabetes mellitus Priority: Secondary Status: Chronic (4) Chronic pain Priority: Secondary Status: Chronic (5) HTN (hypertension) Priority: Secondary Status: Chronic (6) CHF (congestive heart failure) Priority: Secondary Status: Acute (7) DVT prophylaxis Priority: Secondary Status: Acute - Transfer Medications Home Medications: Simvastatin 10 mg PO DAILY 06/18/15 [History] SitaGLIPtin [Januvia] 100 mg PO DAILY 06/18/15 [History] metFORMIN [Glucophage] 1,000 mg PO BIDWM 06/18/15 [History] Amlodipine Besylate 5 mg PO DAILY 04/25/17 [History] Bupivacaine 0.5% [Marcaine 0.5%] 0.89 mg IT DAILY 04/25/17 [History] Buspirone HCl [Buspar] 10 mg PO BID 04/25/17 [History] Citalopram Hydrobromide [Citalopram HBr] 10 mg PO DAILY 04/25/17 [History] Furosemide [Lasix] 40 mg PO BID 04/25/17 [History] Metoprolol [Lopressor] 12.5 mg PO BID 04/25/17 [History] Morphine Sulfate/Pf [Morphine IntraThecdal Pump] 1.79 mg IT DAILY 04/25/17 [ History] Potassium Chloride [K-Tab ER] 20 meq PO BID 04/25/17 [History] Venlafaxine XR (24 HR) [Effexor Xr] 150 mg PO BID 04/25/17 [History] Aspirin Enteric Coated [Aspirin EC] 81 mg PO DAILY #30 tablet. 04/28/17 [Rx] Ferrous Sulfate 325 mg PO BIDWM #60 tablet 04/28/17 [Rx] Ascorbic Acid [Vitamin C with Wendy Hips] 500 mg PO DAILY 07/06/17 [History] Cefdinir [Omnicef] 300 mg PO BID 5 Days #10 capsule 07/11/17 [Rx] Allergies/Adverse Reactions: 3 Allergy/AdvReac Type Severity Reaction Status Date / Time Sulfa (Sulfonamide Allergy Swelling Verified 06/18/15 11:26 Antibiotics) of Lip/Tongue/Throat - Respiratory Orders Smoking Cessation: Smoking cessation has been advised. For more information, call the [place] Tobacco Quit Line at 7-288-GCQV-NOW. - Ancillary Orders May use pressure relief devices daily prn, May consult with Dentist, Women Nurse, Supervisor Ditching PRN - Advance Directives Code Status: Full Code - Mobility Orders Other (as per physical therapy) - Rehabiliation Orders Rehab Orders: Sternal Precautions, Evaluation for Physical Therapy, Evaluation for Occupational Therapy - Treatments Skin tear care topically daily PRN per policy, May check for fecal impaction rectally daily PRN - Diet Orders No Added Salt (LORRIE), No Concentrated Sweets, Cardiac CERTIFICATION: I certify that the transfer of the above named patient to an Extended Care Facility is necessary for the continuing treatment of the diagnosis listed. The above information is true and accurate reflection of patient's current condition. Confidential - Redisclosure prohibited without a patient's written consent.
[2017-07-11 15:31] VITALS: BP 112/74
[2017-07-11] MEDS ORDERED: Furosemide 40 MG TABLET PO SCH (17:00)
== END 2017-07-11 17:33 | disposition other institution (70) | DRG 689 ==
LOC: EMEROO 12:01 → 3ANU 12:01 → SUATTDRO 07-07 11:57
PROVIDERS: ADMIT Internal Medicine; ATTEND Student in an Organized Health Care Education/Training Program

== ENCOUNTER 2018-08-10 12:28 | Observation (INO) ==
[2018-08-10 12:58] LABS: Basophils % 0.3 %; Eosinophils # 0.1 K/mcL (0.0-0.6); Eosinophils % 1.7 %; Hematocrit 36.1 % (35.3-44.9); Immature Granulocytes % 0.3 % (0-4); Lymphocytes # 1.6 K/mcL (0.6-4.6); Lymphocytes % 24.8 %; Mean Corpuscular HGB Conc 30.5 g/dL (31.6-35.5); Mean Corpuscular Volume 88.5 fL (83.0-100.0); Mean Platelet Volume 9.7 fL (9.4-12.4); Monocytes # 0.4 K/mcL (0.0-1.3); Monocytes % 6.6 %; Neutrophils # 4.3 K/mcL (1.6-8.9); Platelet Count 234 K/mcL (140-400); Red Blood Count 4.08 M/mcL (3.82-4.97); Red Cell Distribution Width 15.1 % (11.5-14.5); Segmented Neutrophils % 66.3 %; White Blood Count 6.5 K/mcL (4.3-11.1)
--- NOTE | 2018-08-10 13:03 | Emergency Department Note ---
Disposition Clinical Impression: Shortness of breath, Hypoxia Disposition: Admitted As Inpatient Referrals: Justin Chua DO [Primary Care Provider] - Forms: ED Satisfaction Letter Time of Disposition: 15:00 General Adult HPI - General Chief complaint: ED Shortness of Breath/Dyspnea Stated complaint: Low Oxygen saturation Time Seen by Provider: 08/10/18 12:32 Source: patient Mode of arrival: ambulatory Limitations: no limitations Nursing Notes Reviewed: Yes Vital Signs Reviewed: Yes - History of Present Illness HPI Narrative: Patient is a 68-year-old female with a history of congestive heart failure presenting to the emergency department with reports of shortness of breath and chest discomfort. Patient states that is located in the center of her chest. Patient states that she has had increased shortness of breath. Patient does use oxygen regularly at night but is had to use increase oxygen during the day. Family states that she normally is on 2 L of oxygen. States that her oxygen saturation dropped into the 70s and she is on room air. Patient states that she does not really have any radiation of the pain. Patient states that she has had some nausea but no diaphoresis. Pain Scale: 0 - Related Data Home Medications Medication Instructions Recorded Confirmed Simvastatin 10 mg PO DAILY 06/18/15 08/10/18 SitaGLIPtin [Januvia] 100 mg PO DAILY 06/18/15 08/10/18 metFORMIN [Glucophage] 1,000 mg PO BIDWM 06/18/15 08/10/18 Amlodipine Besylate 10 mg PO DAILY 04/25/17 08/10/18 Buspirone HCl [Buspar] 10 mg PO BID 04/25/17 08/10/18 Furosemide [Lasix] 40 mg PO BID 04/25/17 08/10/18 Metoprolol [Lopressor] 12.5 mg PO BID 04/25/17 08/10/18 Morphine Sulfate/Pf [Morphine 1.79 mg IT DAILY 04/25/17 08/10/18 IntraThecdal Pump] Potassium Chloride [K-Tab ER] 20 meq PO BID 04/25/17 08/10/18 Ascorbic Acid [Vitamin C with Wendy 1,000 mg PO DAILY 07/06/17 08/10/18 Hips] Celecoxib [Celebrex] 100 mg PO DAILY 08/10/18 08/10/18 Escitalopram [Lexapro] 5 mg PO DAILY 08/10/18 08/10/18 Isosorbide MONOnitrate [Isosorbide 30 mg PO DAILY 08/10/18 08/10/18 Mononitrate ER] Lantus Solostar 08/10/18 08/10/18 Omeprazole [PriLOSEC] 40 mg PO DAILY 08/10/18 08/10/18 Previous Rx's Medication Instructions Recorded Aspirin Enteric Coated [Aspirin EC] 81 mg PO DAILY #30 tablet. 04/28/17 Ferrous Sulfate 325 mg PO BIDWM #60 tablet 04/28/17 Allergies Allergy/AdvReac Type Severity Reaction Status Date / Time Sulfa (Sulfonamide Allergy Swelling Verified 08/10/18 12:30 Antibiotics) of Lip/Tongue/Throat All systems ED: reviewed and negative except as stated. Constitutional: Denies: fever Cardiovascular: Reports: chest pain Respiratory: Reports: dyspnea Gastrointestinal: Reports: nausea. Denies: abdominal pain, vomiting, diarrhea Genitourinary: Denies: dysuria, frequency Neurological: Denies: weakness, numbness, paresthesias Past Medical History - Past Medical History Medical history: Reports: CHF, coronary artery disease, diabetes, hypertension, other Surgical history: Reports: hysterectomy Psychiatric history: Reports: depression, panic disorder PANTOGRAPHER history: Reports: no PANTOGRAPHER history - Social History Smoking Status: Never smoker Smokeless Tobacco Status: No Alcohol use: Reports: none Drug use: Reports: none Physical Exam - General Limitations: no limitations General appearance: alert, in no apparent distress - Head Head exam: atraumatic, normocephalic - Eye Eye exam: Present: normal appearance, EOMI - Neck Neck exam: Present: normal inspection, full ROM, trachea midline - Respiratory Respiratory exam: Present: normal lung sounds bilaterally. Absent: respiratory distress, wheezes - Cardiovascular Cardiovascular exam: Present: regular rate, normal rhythm, normal heart sounds, +S1, +S2 - Abdominal Exam Abdominal exam: Present: soft, Non-Tender, normal bowel sounds - Neurological Exam Neurological exam: Present: alert, oriented X3 - Psychiatric Psychiatric exam: Present: normal affect, normal mood - Skin Skin exam: Present: warm, dry, intact Course Vital Signs Temperature 98.4 F 08/10/18 12:29 Pulse Rate 69 08/10/18 12:29 Respiratory Rate 20 08/10/18 12:29 Blood Pressure 146/68 08/10/18 12:29 O2 Sat by Pulse Oximetry 98 08/10/18 12:29 Temperature 98.4 F 08/10/18 12:35 Pulse Rate 66 08/10/18 14:32 Respiratory Rate 18 08/10/18 14:32 Blood Pressure 133/50 08/10/18 14:32 O2 Sat by Pulse Oximetry 97 08/10/18 14:32 Oxygen Delivery Oxygen Delivery Room Air Medical Decision Making - MDM Narrative Medical decision making narrative: Due the patient is not emergency Department with reports of shortness breath we will obtain laboratory testing including a d-dimer chest x-ray and EKG. The patient's d-dimer was elevated at 7:15. This is above the cutoff for the aged just a d-dimer. The patient had a CT scan of the chest to evaluate for possible pulmonary emboli. This was negative for PE. There was vasular the congestion noted on the chest x-ray. The patient did receive Lasix and DuoNeb breathing treatments. Due to the patient having increased oxygen requirement beyond her baseline during the day the patient be admitted to the hospital for further evaluation and management. The family and the patient in agreement with this plan. Exact etiology is unclear of the patient shortness of breath and hypoxia. The patient will be admitted for further workup. I called and spoke the adm itting hospitalist Dr. Parra and she has accepted the patient to their service. - Medical Records Medical records reviewed: Yes I reviewed the patient's medical records. - Lab Data Lab results reviewed: Yes I reviewed the patient's lab results. Result diagrams: 08/10/18 12:42 08/10/18 12:42 Lab Results 08/10/18 08/10/18 08/10/18 Range/Units 12:42 12:42 12:42 WBC 6.5 (4.3-11.1) K/mcL RBC 4.08 (3.82-4.97) M/mcL Hgb 11.0 L (11.5-15.4) g/dL Hct 36.1 (35.3-44.9) % MCV 88.5 (83.0-100.0) fL MCH 27.0 L (28.0-33.3) pg MCHC 30.5 L (31.6-35.5) g/dL RDW 15.1 H (11.5-14.5) % Plt Count 234 (140-400) K/mcL MPV 9.7 (9.4-12.4) fL Immature Gran % 0.3 (0-4) % Seg Neutrophils % 66.3 % Lymphocytes % 24.8 % Monocytes % 6.6 % Eosinophils % 1.7 % Basophils % 0.3 % Neutrophils # 4.3 (1.6-8.9) K/mcL Lymphocytes # 1.6 (0.6-4.6) K/mcL Monocytes # 0.4 (0.0-1.3) K/mcL Eosinophils # 0.1 (0.0-0.6) K/mcL Basophils # 0.0 (0.0-0.2) K/mcL PT 12.9 H (9.4-12.1) Seconds INR 1.1 D-Dimer 715 H (0-500) ng/mLFEU Sodium 140 (136-145) mEq/L Potassium 4.5 (3.5-5.1) mEq/L Chloride 98 (98-107) mEq/L Carbon Dioxide 30 H (23-29) mEq/L BUN 30 H (8-23) mg/dL Creatinine 1.12 (0.60-1.20) mg/dL Est GFR ( Amer) 58 L (> 60) Est GFR (Non-Af Amer) 48 L (> 60) BUN/Creatinine Ratio 27 H (6-26) Glucose 180 H (70-105) mg/dL Calculated Osmolality 301 H (280-300) Lactic Acid (0.5-2.2) mmol/L Calcium 9.9 (8.6-10.3) mg/dL Troponin I 0.03 (< 0.04) ng/mL B-Natriuretic Peptide (Less than 100) pg/mL Urine Color (Yellow) Urine Clarity (Clear) Urine pH (5.0-8.0) pH Units Ur Specific Amma (1.010-1.025) Urine Protein (Neg-Trace) mg/dL Urine Glucose (UA) (Normal) mg/dL Urine Ketones (Negative) mg/dL Urine Blood (Negative) Urine Nitrite (Negative) Urine Bilirubin (Negative) Urine Urobilinogen (Normal) mg/dL Ur Leukocyte Esterase (Negative) Urine Microscopic RBC (0-3) per hpf Urine Microscopic WBC (0-3) per hpf Ur Squamous Epith Cells (None-Few) per lpf Urine Bacteria (None-Few) per hpf Hyaline Casts (None-Few) per lpf Ur Culture Indicated? (NO) 08/10/18 08/10/18 08/10/18 Range/Units 12:42 12:42 14:35 WBC (4.3-11.1) K/mcL RBC (3.82-4.97) M/mcL Hgb (11.5-15.4) g/dL Hct (35.3-44.9) % MCV (83.0-100.0) fL MCH (28.0-33.3) pg MCHC (31.6-35.5) g/dL RDW (11.5-14.5) % Plt Count (140-400) K/mcL MPV (9.4-12.4) fL Immature Gran % (0-4) % Seg Neutrophils % % Lymphocytes % % Monocytes % % Eosinophils % % Basophils % % Neutrophils # (1.6-8.9) K/mcL Lymphocytes # (0.6-4.6) K/mcL Monocytes # (0.0-1.3) K/mcL Eosinophils # (0.0-0.6) K/mcL Basophils # (0.0-0.2) K/mcL PT (9.4-12.1) Seconds INR D-Dimer (0-500) ng/mLFEU Sodium (136-145) mEq/L Potassium (3.5-5.1) mEq/L Chloride (98-107) mEq/L Carbon Dioxide (23-29) mEq/L BUN (8-23) mg/dL Creatinine (0.60-1.20) mg/dL Est GFR ( Amer) (> 60) Est GFR (Non-Af Amer) (> 60) BUN/Creatinine Ratio (6-26) Glucose (70-105) mg/dL Calculated Osmolality (280-300) Lactic Acid 1.7 (0.5-2.2) mmol/L Calcium (8.6-10.3) mg/dL Troponin I (< 0.04) ng/mL B-Natriuretic Peptide 147 H (Less than 100) pg/mL Urine Color Yellow (Yellow) Urine Clarity Cloudy A (Clear) Urine pH 5.5 (5.0-8.0) pH Units Ur Specific Amma 1.014 (1.010-1.025) Urine Protein Negative (Neg-Trace) mg/dL Urine Glucose (UA) Normal (Normal) mg/dL Urine Ketones Negative (Negative) mg/dL Urine Blood Negative (Negative) Urine Nitrite Negative (Negative) Urine Bilirubin Negative (Negative) Urine Urobilinogen Normal (Normal) mg/dL Ur Leukocyte Esterase Large H (Negative) Urine Microscopic RBC 3-5 H (0-3) per hpf Urine Microscopic WBC 50-100 H (0-3) per hpf Ur Squamous Epith Cells Many H (None-Few) per lpf Urine Bacteria Many H (None-Few) per hpf Hyaline Casts None Seen (None-Few) per lpf Ur Culture Indicated? YES A (NO) - Radiology Data Radiology results reviewed: Yes I reviewed the patient's radiology results. Chest X-Ray 08/10/18 12:37 IMPRESSION: Pulmonary vascular congestion. Right basilar atelectasis. Sequela of granulomatous disease. D/ / Rony Webber MD / Rony Webber MD Interpreting Provider: Rony Webber MD Chest CTA 08/10/18 13:45 IMPRESSION: 1. No acute pulmonary embolus. 2. Mosaic attenuation of the lung parenchyma, compatible with small airways disease. 3. Cholecystectomy. 4. Replaced aortic and mitral valve. D/ / 08/10/2018 14:40:01 Stacey Mann MD / devi Interpreting Provider: Stacey Mann MD - EKG Data EKG #1 EKG attestation: Yes I reviewed and interpreted this EKG. EKG results narrative: EKG shows a sinus rhythm at a rate of 71 bpm, DE interval 232, QRS duration 150, QTC of 482. There is no evidence of STEMI on EKG. This is compared to previous EKG on 07/06/17. Attestation Statement - Attestation Attestation: Resident Attestation: I examined this patient and my medical decision making was reviewed with the Resident Physician. I agree with the documented findings, disposition and treatment plan as described except to the extent set forth below. We independently had [id number] contact with the patient.EKG reviewed with resident physician. Agree with documentation. Patient with a history of CHF, home oxygen at night as needed, no history of COPD presenting for evaluation of chest pain shortness of breath with associated generalized weakness. Daughter states that overall patient has had worsening shortness of breath and oxygen requirement. Patient's oxygen has been as low as 70% at home. The patient will undergo further evaluation for underlying etiology including d-dimer secondary to no significant abnormal lung sounds were significant swelling to the lower extremities consistent with CHF and no other specific explanation on clinical exam. No acute distress, no increased work of breathing, lungs clear to fixation bilaterally, regular rhythm, no significant swelling to lower extremities, abdomen soft nontender to palpation without guarding or rebound.
[2018-08-10 13:05] LABS: INR 1.1; Prothrombin Time 12.9 Seconds (9.4-12.1)
[2018-08-10 13:20] LABS: Calcium 9.9 mg/dL (8.6-10.3); Potassium 4.5 mEq/L (3.5-5.1)
[2018-08-10 13:22] LABS: Troponin I 0.03 ng/mL (< 0.04)
[2018-08-10] MEDS ORDERED: Isovue-370 500 ML BOTTLE IVP ONE (13:45)
[2018-08-10] MEDS ORDERED: Furosemide 40 MG/4 ML VIAL IVP STA (14:20)
[2018-08-10] MEDS ORDERED: Ipratropium/Albuterol Neb 3 ML IH ONE (14:20)
[2018-08-10 14:47] LABS: Bilirubin,Urine Negative (Negative); Blood,Urine Negative (Negative); Clarity,Urine Cloudy (Clear); Color,Urine Yellow (Yellow); Glucose,Urine (UA) Normal (Normal); Ketones,Urine Negative (Negative); Leukocyte Esterase,Urine Large (Negative); Nitrite,Urine Negative (Negative); PH,Urine 5.5 pH Units (5.0-8.0); Protein,Urine Negative (Neg-Trace); Specific Gravity,Urine 1.014 (1.010-1.025); Urobilinogen,Urine Normal (Normal)
[2018-08-10 14:49] LABS: Bacteria,Urine Many per hpf (None-Few); Hyaline Casts,Urine None Seen per lpf (None-Few); Squamous Epithelial Cell,Urine Many per lpf (None-Few); WBC,Urine 50-100 per hpf (0-3)
[2018-08-10] MEDS ORDERED: cefTRIAXone 1,000 MG in Water for inj. (sterile) 20 ML 10 ML IVP ONE (15:04)
[2018-08-10] MEDS ORDERED: Naloxone 0.4 MG/ML INJ IVP PRN (15:54)
--- NOTE | 2018-08-10 16:00 | Internal Med History&Physical ---
Date of Encounter: 08/10/18 Time of Encounter: 15:52 Internal Medicine - H&P: HPI Chief complaint: SOB Admitted From: Home Plans for Post Hospital Care: Home History of present illness: Ms. Hughes is a 68 year old female with history of mitral and aortic valve replacement, CAD, and diastolic heart failure presented to the emergency department with complaint of shortness of breath. As per daughter and patient her shortness of breath started about a week ago and is progressively worsening. She denies shortness of breath at rest however on ambulation she reports she that she gets out of breath more easily as compared to last week. She was that she is compliant with her Lasix however feels as though it is not working as well as it used to. She denies PND or orthopnea or leg swelling. She is had no cough or recent sick contacts. She does use home oxygen it was prescribed to her after her heart surgery and she only uses it at night. She denies shortness of breath at rest. Has had no calf tenderness or swelling and denies any previous blood clots or prolonged immobilization. Shortness of breath is not associated with chest pain or chest tightness. She denies fever, chills, cough, palpitations, nausea, vomiting or diarrhea. She does report that she is more frequently urinating in smaller amounts which has caused her to think that her Lasix is not working she denies pain or foul- smelling urine. On the emergency department CT angiogram of the chest performed which showed no pulmonary embolism and small airway disease. She was also found to have urinary tract infection and was started on IV antibiotics. Past Med Surg Social Fam HX - Past Medical History Medical history: CHF, coronary artery disease, diabetes, hypertension, other Additional medical history: Morphine Pain Pump Left Lower Back Psychiatric history: depression, panic disorder - Past Surgical History Surgical History: hysterectomy Additional surgical history: B/L knee replacement. Right CTR. bladder suspension. Cardiac stents. pain pump - Social History Smoking Status: Never smoker Smokeless Tobacco Status: No Alcohol use: none Drug use: none - Family History Mother Living Status: Hx Family Cardiac Disorders: Yes Hx Family Endocrine Disorder: Yes Father Living Status: Hx Family Cardiac Disorders: Yes Hx Family Respiratory Disorders: No Hx Family Cancer: Yes Hx Family GI Disorders: No Internal Medicine - H&P: Meds Simvastatin 10 mg PO DAILY 06/18/15 [History] SitaGLIPtin [Januvia] 100 mg PO DAILY 06/18/15 [History] metFORMIN [Glucophage] 1,000 mg PO BIDWM 06/18/15 [History] Amlodipine Besylate 10 mg PO DAILY 04/25/17 [History] Buspirone HCl [Buspar] 10 mg PO BID 04/25/17 [History] Furosemide [Lasix] 40 mg PO BID 04/25/17 [History] Metoprolol [Lopressor] 12.5 mg PO BID 04/25/17 [History] Morphine Sulfate/Pf [Morphine IntraThecdal Pump] 1.79 mg IT DAILY 04/25/17 [History] Potassium Chloride [K-Tab ER] 20 meq PO BID 04/25/17 [History] Aspirin Enteric Coated [Aspirin EC] 81 mg PO DAILY #30 tablet. 04/28/17 [Rx] Ferrous Sulfate 325 mg PO BIDWM #60 tablet 04/28/17 [Rx] Ascorbic Acid [Vitamin C with Wendy Hips] 1,000 mg PO DAILY 07/06/17 [History] Buspirone HCl [Buspar] 10 mg PO BID 08/10/18 [History] Celecoxib [Celebrex] 100 mg PO DAILY 08/10/18 [History] Escitalopram [Lexapro] 5 mg PO DAILY 08/10/18 [History] Isosorbide MONOnitrate [Isosorbide Mononitrate ER] 30 mg PO DAILY 08/10/18 [History] Lantus Solostar 100 unit SQ DAILY 08/10/18 [History] Omeprazole [PriLOSEC] 40 mg PO DAILY 08/10/18 [History] Trazodone HCl 50 mg PO HS 08/10/18 [History] Allergy/AdvReac Type Severity Reaction Status Date / Time Sulfa (Sulfonamide Allergy Swelling Verified 08/10/18 12:30 Antibiotics) of Lip/Tongue/Throat All Systems PM: A 10-system review of systems was performed and is negative for pertinent findings except as documented above in the HPI. - Constitutional Vitals: Temp Pulse Resp BP Pulse Ox 98.4 F 66 18 133/50 97 08/10/18 12:35 08/10/18 14:32 08/10/18 14:32 08/10/18 14:32 08/10/18 14:32 Exam: General: Patient is alert, oriented, no acute distress, speaks in full sentences Head: atraumatic, normocephalic, Eye: normal appearance, PERRL, no scleral icterus, no conjunctival injection ENT: mucous membranes moist, normal external ear exam Neck: normal inspection, trachea midline, full ROM, no carotid bruits Chest: normal inspection, symmetric chest rise Respiratory: Good respiratory effort. Bilateral breath sounds are clear without wheezing, crackles, or rhonchi. Cardiovascular: Regular rate and rhythm. s1 and s2 No clicks, rubs, gallops, systolic murmur in the apex Abdomen: Bowel sounds present normoactive x-4 quadrants. Abdomen is soft, nondistended. no Epigastric tenderness. No guarding or rebound. No organomegaly noted, obese musculoskeletal: Spontaneously moving all extremities. no edema, no calf tenderness Skin: warm, dry, intact. Has extensive varicose veins of the lower extremities Neuro: Alert and oriented x3 no focal deficit Psych: Patient's affect is normal Internal Med - H&P Results - Labs CBC & Chem 7: 08/10/18 12:42 08/10/18 12:42 Labs: Short CBC 08/10/18 Range/Units 12:42 WBC 6.5 (4.3-11.1) K/mcL Hgb 11.0 L (11.5-15.4) g/dL Hct 36.1 (35.3-44.9) % Plt Count 234 (140-400) K/mcL Neutrophils # 4.3 (1.6-8.9) K/mcL BMP 08/10/18 12:42 Sodium 140 Potassium 4.5 Chloride 98 Carbon Dioxide 30 H BUN 30 H Creatinine 1.12 Glucose 180 H Calcium 9.9 Cardiac Enzymes 08/10/18 Range/Units 12:42 Troponin I 0.03 (< 0.04) ng/mL Urine 08/10/18 Range/Units 14:35 Urine Color Yellow (Yellow) Urine Clarity Cloudy A (Clear) Urine pH 5.5 (5.0-8.0) pH Units Ur Specific [place] 1.014 (1.010-1.025) Urine Protein Negative (Neg-Trace) mg/dL Urine Glucose (UA) Normal (Normal) mg/dL - EKG Data -: EKG Interpreted by Myself (Sinus rhythm, first-degree AV block, LVH with IVCD and repolarization abnor) - EKG Data Prior EKG available for review: yes When compared to previous EKG: there is no significant change - Impressions ITS Impressions Chest X-Ray 08/10/18 12:37 IMPRESSION: Pulmonary vascular congestion. Right basilar atelectasis. Sequela of granulomatous disease. D/ / Rony Webber MD / Rony Webber MD Interpreting Provider: Rony Webber MD Chest CTA 08/10/18 13:45 IMPRESSION: 1. No acute pulmonary embolus. 2. Mosaic attenuation of the lung parenchyma, compatible with small airways disease. 3. Cholecystectomy. 4. Replaced aortic and mitral valve. D/ / 08/10/2018 14:40:01 Stacey Mann MD / devi Interpreting Provider: Stacey Mann MD - Assessment and Plan (1) Acute on chronic respiratory failure with hypoxemia Current Visit: No Status: Acute Assessment and plan: Most echo secondary to small airway disease seen on CT angiogram of the chest. Ruled out pulmonary embolism Respiratory viral panel DuoNeb's Currently saturating 97% on room air Will evaluate patient and her oxygenation on exertion Urine antigens gentle hydration as she received contrast and lasix with low GFR (2) Diastolic heart failure Current Visit: Yes Status: Acute Assessment and plan: not in acute exacerbation BNP 147- Ct chest without pulmonary edema Will get echocardiogram Started on gentle hydration avoid fluid overload Continue home medications if not contraindicated Strict intake and output TTE on 07/2017- LVEF 60-65%. Atypical septal motion Indeterminate diastolic function. Normal right ventricular structure and function. Bioprosthetic aortic valve not well visualized. Normal function by Doppler. By history, patient is s/p bioprosthetic mitral valve replacement. Valve is very poorly visualized due to dense mitral annular calcification. Doppler gradient 13 mmHg at 87 bpm suggests severe mitral stenosis. PHT, MVA not obtained. Mild tricuspid regurgitation. Mild pulmonary hypertension. Mild pulmonic regurgitation. Qualifiers: Heart failure chronicity: chronic Qualified Code(s): I50.32 - Chronic diastolic (congestive) heart failure (3) H/O heart valve replacement with bioprosthetic valve Current Visit: No Status: Chronic Assessment and plan: both mitral and aortic TTE ordered Continue with home medications if not contraindicated (4) Urinary tract infection Current Visit: Yes Status: Acute Assessment and plan: Started on ceftriaxone will continue Follow urine cultures Qualifiers: Urinary tract infection type: acute cystitis Hematuria presence: with hematuria Qualified Code(s): N30.01 - Acute cystitis with hematuria (5) Diabetes mellitus Current Visit: Yes Status: Acute Assessment and plan: insulin sliding scale A1c in AM adjust per finger sticks Qualifiers: Diabetes mellitus type: type 2 Diabetes mellitus 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 Diabetes mellitus complication status: without com plication Qualified Code(s): E11.9 - Type 2 diabetes mellitus without com plications (6) Obese Current Visit: Yes Status: Acute Assessment and plan: Was counseled Qualifiers: Obesity type: due to excess calories Body mass index: BMI 31.0-31.9 Qualified Code(s): E66.09 - Other obesity due to excess calories; Z68.31 - Body mass index (BMI) 31.0-31.9, adult (7) DVT prophylaxis Current Visit: Yes Status: Acute Assessment and plan: Upper and subcutaneous - Time Spent With Patient Total time spent is greater than 50% in coordination of care (as documented) at patient's floor/unit and/or counseling patient:
[2018-08-10] MEDS ORDERED: *HR* Dextrose 50 % in Water (Syg) 50 ML SYRINGE IVP PRN (16:13)
[2018-08-10] MEDS ORDERED: D5% in Water 1,000 ML IVC PRN (16:13)
[2018-08-10] MEDS ORDERED: Dextrose Gel 15 GM/37.5 ML TUBE PO PRN ×2 (16:13)
[2018-08-10] MEDS ORDERED: 0.9 % Sodium Chloride 1,000 ML IVC SCH (16:15)
[2018-08-10] MEDS: Insulin LISPRO 300 UNITS/3 ML VIAL SQ SCH ×2 (17:26→20:43)
[2018-08-10 18:58] LABS: Adenovirus Not Detected (Not Detect); Bordetella Pertussis Not Detected (Not Detect); Chlamydophila pneumoniae Not Detected (Not Detect); Coronavirus 229E Not Detected (Not Detect); Coronavirus HKU1 Not Detected (Not Detect); Coronavirus NL63 Not Detected (Not Detect); Coronavirus OC43 Not Detected (Not Detect); Human Metapneumovirus Not Detected (Not Detect); Human Rhinovirus/Enterovirus Not Detected (Not Detect); Influenza A Subtype 2009 H1 Not Detected (Not Detect); Influenza A Untypeable Not Detected (Not Detect); Influenza B Not Detected (Not Detect); Mycoplasma pneumoniae Not Detected (Not Detect); Parainfluenza Virus 1 Not Detected (Not Detect); Parainfluenza Virus 2 Not Detected (Not Detect); Parainfluenza Virus 3 Not Detected (Not Detect); Parainfluenza Virus 4 Not Detected (Not Detect); Respiratory Syncytial Virus Not Detected (Not Detect)
[2018-08-10] MEDS: traZODone 50 MG TABLET PO SCH (20:42)
[2018-08-10] MEDS: BUSPIRONE HCL 10 MG TABLET PO SCH (20:43)
[2018-08-10] MEDS: *HR* Heparin 5,000 UNIT/ML VIAL SQ SCH (21:33)
--- NOTE | 2018-08-10 22:13 | Electrocardiograph Report ---
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
[2018-08-11 02:11] LABS: Basophils % 0.3 %; Eosinophils # 0.1 K/mcL (0.0-0.6); Hematocrit 35.2 % (35.3-44.9); Hemoglobin 10.8 g/dL (11.5-15.4); Immature Granulocytes % 0.3 % (0-4); Lymphocytes % 33.7 %; Mean Corpuscular HGB Conc 30.7 g/dL (31.6-35.5); Mean Corpuscular Hemoglobin 26.7 pg (28.0-33.3); Mean Corpuscular Volume 87.1 fL (83.0-100.0); Mean Platelet Volume 9.7 fL (9.4-12.4); Monocytes # 0.5 K/mcL (0.0-1.3); Monocytes % 7.4 %; Neutrophils # 3.4 K/mcL (1.6-8.9); Platelet Count 216 K/mcL (140-400); Red Blood Count 4.04 M/mcL (3.82-4.97); Segmented Neutrophils % 56.3 %; White Blood Count 6.1 K/mcL (4.3-11.1)
[2018-08-11 02:30] LABS: BUN/Creatinine Ratio 29 (6-26); Blood Urea Nitrogen 26 mg/dL (8-23); Calcium 9.4 mg/dL (8.6-10.3); Carbon Dioxide 32 mEq/L (23-29); Chloride 97 mEq/L (98-107); Glucose 184 mg/dL (70-105); Magnesium 1.9 mg/dL (1.6-2.6); Osmolality,Calculated 292 (280-300); Phosphorous 3.4 mg/dL (2.7-4.5); Potassium 3.8 mEq/L (3.5-5.1); Sodium 136 mEq/L (136-145); eGFR For African Americans > 60 (> 60); eGFR For Non-African Americans > 60 (> 60)
[2018-08-11] MEDS: *HR* Heparin 5,000 UNIT/ML VIAL SQ SCH ×3 (05:37→20:36)
[2018-08-11 07:10] LABS: Estimated Average Glucose 197 mg/dl; Hemoglobin A1C 8.5 %
[2018-08-11] MEDS: Insulin LISPRO 300 UNITS/3 ML VIAL SQ SCH ×4 (08:54→20:37)
[2018-08-11] MEDS: amLODIPine 5 MG TABLET PO SCH (08:55)
[2018-08-11] MEDS: Aspirin Enteric Coated 81 MG Tablet PO SCH (08:55)
[2018-08-11] MEDS: Isosorbide MONOnitrate (24 HR) 30 MG TAB.ER.24H PO SCH (08:55)
[2018-08-11] MEDS: cefTRIAXone 2,000 MG in Water for inj. (sterile) 20 ML 20 ML IVP SCH (08:55)
[2018-08-11] MEDS: Ascorbic Acid 500 MG TABLET PO SCH (08:55)
[2018-08-11] MEDS: BUSPIRONE HCL 10 MG TABLET PO SCH ×2 (08:55→20:36)
[2018-08-11] MEDS: MORPHINE SULFATE IT SCH (08:56)
--- NOTE | 2018-08-11 11:28 | Internal Med Progress Note ---
Hospitalist Progress Note - Encounter Date of Encounter: 08/11/18 Time of Encounter: 08:00 - Exam Vitals: Temp Pulse Resp BP Pulse Ox 98.9 F 73 17 144/65 98 08/11/18 05:42 08/11/18 07:35 08/11/18 07:35 08/11/18 07:27 08/11/18 07:35 Exam: General: Patient is alert, oriented, no acute distress, speaks in full sentences Head: atraumatic, normocephalic, Eye: normal appearance, PERRL, no scleral icterus, no conjunctival injection ENT: mucous membranes moist, normal external ear exam Neck: normal inspection, trachea midline, full ROM, no carotid bruits Chest: normal inspection, symmetric chest rise Respiratory: Good respiratory effort. Bilateral breath sounds are clear without wheezing, crackles, or rhonchi. Cardiovascular: Regular rate and rhythm. s1 and s2 No clicks, rubs, gallops, systolic murmur in the apex Abdomen: Bowel sounds present normoactive x-4 quadrants. Abdomen is soft, non distended. no Epigastric tenderness. No guarding or rebound. No organomegaly noted, obese musculoskeletal: Spontaneously moving all extremities. no edema, no calf tenderness Skin: warm, dry, intact. Has extensive varicose veins of the lower extremities Neuro: Alert and oriented x3 no focal deficit Psych: Patient's affect is normal - Assessment and Plan (1) Acute on chronic respiratory failure with hypoxemia Current Visit: No Status: Acute Assessment and Plan: Most likely secondary to small airway disease seen on CT angiogram of the chest. Ruled out pulmonary embolism Respiratory viral panel- negative DuoNeb's Currently saturating 97% on room air Will evaluate patient and her oxygenation on exertion Urine antigens- negative (2) Diastolic heart failure Current Visit: Yes Status: Acute Assessment and Plan: not in acute exacerbation BNP 147- Ct chest without pulmonary edema echocardiogram pending continue with lasix instead of BID once daily ( was dehydrated on admission) Continue home medications if not contraindicated ( ASA, BB ) Strict intake and output TTE on 07/2017- LVEF 60-65%. Atypical septal motion Indeterminate diastolic function. Normal right ventricular structure and function. Bioprosthetic aortic valve not well visualized. Normal function by Doppler. By history, patient is s/p bioprosthetic mitral valve replacement. Valve is very poorly visualized due to dense mitral annular calcification. Doppler gradient 13 mmHg at 87 bpm suggests severe mitral stenosis. PHT, MVA not obtained. Mild tricuspid regurgitation. Mild pulmonary hypertension. Mild pulmonic regurgitation. (3) H/O heart valve replacement with bioprosthetic valve Current Visit: No Status: Chronic Assessment and Plan: both mitral and aortic TTE ordered Continue with home medications if not contraindicated (4) Urinary tract infection Current Visit: Yes Status: Acute Assessment and Plan: Started on ceftriaxone will continue Follow urine cultures (5) Diabetes mellitus Current Visit: Yes Status: Acute Assessment and Plan: insulin sliding scale A1c 8.5 adjust per finger sticks (6) Obese Current Visit: Yes Status: Acute Assessment and Plan: Was counseled (7) DVT prophylaxis Current Visit: Yes Status: Acute Assessment and Plan: Upper and subcutaneous - Time Spent with Patient Total time spent is greater than 50% in coordination of care (as documented) at patient's floor/unit and/or counseling patient: Internal Medicine: Result - Labs CBC & Chem 7: 08/11/18 01:30 08/11/18 01:30 Labs: Short CBC 08/10/18 08/11/18 Range/Units 12:42 01:30 WBC 6.5 6.1 (4.3-11.1) K/mcL Hgb 11.0 L 10.8 L (11.5-15.4) g/dL Hct 36.1 35.2 L (35.3-44.9) % Plt Count 234 216 (140-400) K/mcL Neutrophils # 4.3 3.4 (1.6-8.9) K/mcL BMP 08/10/18 08/11/18 12:42 01:30 Sodium 140 136 Potassium 4.5 3.8 Chloride 98 97 L Carbon Dioxide 30 H 32 H BUN 30 H 26 H Creatinine 1.12 0.91 Glucose 180 H 184 H Calcium 9.9 9.4 Cardiac Enzymes 08/10/18 Range/Units 12:42 Troponin I 0.03 (< 0.04) ng/mL Urine 08/10/18 Range/Units 14:35 Urine Color Yellow (Yellow) Urine Clarity Cloudy A (Clear) Urine pH 5.5 (5.0-8.0) pH Units Ur Specific [place] 1.014 (1.010-1.025) Urine Protein Negative (Neg-Trace) mg/dL Urine Glucose (UA) Normal (Normal) mg/dL - ABG Interpretation ABG results: PT/INR, D-dimer PT 12.9 Seconds (9.4-12.1) H 08/10/18 12:42 715 ng/mLFEU (0-500) H 08/10/18 12:42 - Impressions Impressions Chest X-Ray 08/10/18 12:37 IMPRESSION: Pulmonary vascular congestion. Right basilar atelectasis. Sequela of granulomatous disease. D/ / Rony Webber MD / Rony Webber MD Interpreting Provider: Rony Webber MD Chest CTA 08/10/18 13:45 IMPRESSION: 1. No acute pulmonary embolus. 2. Mosaic attenuation of the lung parenchyma, compatible with small airways disease. 3. Cholecystectomy. 4. Replaced aortic and mitral valve. 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
[2018-08-11] MEDS: Furosemide 40 MG TABLET PO SCH (11:52)
[2018-08-11] MEDS: traZODone 50 MG TABLET PO SCH (20:36)
[2018-08-12] MEDS: *HR* Heparin 5,000 UNIT/ML VIAL SQ SCH ×2 (06:36→14:58)
[2018-08-12] MEDS: Ascorbic Acid 500 MG TABLET PO SCH (08:27)
[2018-08-12] MEDS: Furosemide 40 MG TABLET PO SCH (08:27)
[2018-08-12] MEDS: Aspirin Enteric Coated 81 MG Tablet PO SCH (08:27)
[2018-08-12] MEDS: amLODIPine 5 MG TABLET PO SCH (08:27)
[2018-08-12] MEDS: BUSPIRONE HCL 10 MG TABLET PO SCH (08:28)
[2018-08-12] MEDS: Isosorbide MONOnitrate (24 HR) 30 MG TAB.ER.24H PO SCH (08:28)
[2018-08-12] MEDS: MORPHINE SULFATE IT SCH (08:34)
[2018-08-12] MEDS: Insulin LISPRO 300 UNITS/3 ML VIAL SQ SCH ×3 (08:34→16:51)
[2018-08-12] MEDS: cefTRIAXone 2,000 MG in Water for inj. (sterile) 20 ML 20 ML IVP SCH (08:35)
--- NOTE | 2018-08-12 09:48 | Internal Med Progress Note ---
Hospitalist Progress Note - Encounter Date of Encounter: 08/12/18 Time of Encounter: 08:00 - Subjective Interval History: Patient was seen and examined at bedside. Reports that she has not been out of breath currently. I discussed that the echocardiogram findings showed moderate to severe aortic regurgitation she reported that she follows up with . in [facility] I discussed that we will call him and get records and she is in agreement. She denies any chest pain, fever, chills, nausea, vomiting or diarrhea. Continues to have urinary symptoms however reports that it has mildly improved. - Exam Vitals: Temp Pulse Resp BP Pulse Ox 97.3 F L 74 16 134/60 97 08/12/18 07:34 08/12/18 07:34 08/12/18 07:34 08/12/18 07:34 08/12/18 04:30 Exam: General: Patient is alert, oriented, no acute distress, speaks in full sentences Head: atraumatic, normocephalic, Eye: normal appearance, PERRL, no scleral icterus, no conjunctival injection ENT: mucous membranes moist, normal external ear exam Neck: normal inspection, trachea midline, full ROM, no carotid bruits Chest: normal inspection, symmetric chest rise Respiratory: Good respiratory effort. Bilateral breath sounds are clear without wheezing, crackles, or rhonchi. Cardiovascular: Regular rate and rhythm. s1 and s2 No clicks, rubs, gallops, systolic murmur in the apex Abdomen: Bowel sounds present normoactive x-4 quadrants. Abdomen is soft, nondistended. no Epigastric tenderness. No guarding or rebound. No organomegaly noted, obese musculoskeletal: Spontaneously moving all extremities. no edema, no calf tenderness Skin: warm, dry, intact. Has extensive varicose veins of the lower extremities Neuro: Alert and oriented x3 no focal deficit Psych: Patient's affect is normal - Assessment and Plan (1) Acute on chronic respiratory failure with hypoxemia Current Visit: No Status: Acute Assessment and Plan: Most likely secondary to small airway disease seen on CT angiogram of the chest and severe AR seen on TTE along with moderate pulm HTN Ruled out pulmonary embolism Respiratory viral panel- negative DuoNeb's Currently saturating 97% on room air Will evaluate patient and her oxygenation on exertion Urine antigens- negative called patient's cutting machine operator at [facility] to discuss possible transfer as she has symptomatic moderate to severe AR on TTE which is new when compared to TTE in 2018- discussed with Dr. Hilliard cutting machine operator at [place] who recommended transfer. this was discussed with daughter and patient. currently awaiting respone form carola daughter she follows with Dr. Aguilar [phone] TTE 08/11 LVEF 60-65%. Indeterminate diastolic function. Normal right ventricular size with mild right ventricular hypokinesis. Moderately dilated left atrium. Bioprosthetic aortic valve replacement noted. Peak aortic velocity 2.96m/s; mean gradient 19mmHg; DVI 0.5 Moderate-severe aortic regurgitation. Recommend FAVIAN, if clinically indicated, to better visualize bioprosthetic valves and assess mechanism of aortic regurgitation. Bioprosthetic mitral valve by history. Mild to moderate stenosis with mean gradient of 8mmHg at 81/min. Mild tricuspid regurgitation. Moderate pulmonary hypertension.Estimated RVSP is 50 mmHg. (2) Aortic regurgitation Current Visit: Yes Status: Acute Assessment and Plan: TTe on 08/11 with moderate to severe aortic regurg and FAVIAN was recommended along with moderate pulmonary hypertension as per records received from Dr. Aguilar's office if carola daughter (verbal consent obtained from patient) she was found to have moderate AR in 12/2017- as per Dr. galvez's progress note in may " if shortness of breath worsens we will do FAVIAN for better visualization of AV. If perivalvular leak we can do percutaneous feeling, if central severe AR develops we will consider TAPVR and future" Dr. galvez's office was called for possible transfer for further workup waiting for call back Continue aspirin, beta alpesh, IMDUR and Lasix TTE 08/11LVEF 60-65%. Indeterminate diastolic function. Normal right ventricular size with mild right ventricular hypokinesis. Moderately dilated left atrium. Bioprosthetic aortic valve replacement noted. Peak aortic velocity 2.96m/s; mean gradient 19mmHg; DVI 0.5 Moderate-severe aortic regurgitation. Recommend FAVIAN, if clinically indicated, to better visualize bioprosthetic valves and assess mechanism of aortic regurgitation. Bioprosthetic mitral valve by history. Mild to moderate stenosis with mean gradient of 8mmHg at 81/min. Mild tricuspid regurgitation. Moderate pulmonary hypertension.Estimated RVSP is 50 mmHg. (3) Moderate pulmonary arterial systolic hypertension Current Visit: Yes Status: Acute Assessment and Plan: estimated RSVP is 50 mmHg on TTE from 08/09 was 40 mmhg on 12/2017 as per records continue with oxygen, lasix and duo-neb (4) CAD (coronary artery disease) Current Visit: Yes Status: Acute Assessment and Plan: as per recrds from primary cutting machine operator Dr. Aguilar s/p stent LAD nd PCI LCX in 2009 [facility] win 2011 with patent coronaries abnormal stress test in 12/2016- mild CAD in 01/2017 was started on IMDUR in may 2018 for angina. currently chest pain free continue with BB, ASA (5) Diastolic heart failure Current Visit: Yes Status: Acute Assessment and Plan: not in acute exacerbation BNP 147- Ct chest without pulmonary edema echocardiogram with moderate to severe AR and increased PA pressure (full report below) continue with home lasix Continue home medications if not contraindicated ( ASA, BB adn lasix ) Strict intake and output (6) H/O heart valve replacement with bioprosthetic valve Current Visit: No Status: Chronic Assessment and Plan: both mitral and aortic - TTE report below management as above has worsening AR Continue with home medications if not contraindicated TTE 08/11 LVEF 60-65%. Indeterminate diastolic function. Normal right ventricular size with mild right ventricular hypokinesis. Moderately dilated left atrium. Bioprosthetic aortic valve replacement noted. Peak aortic velocity 2.96m/s; mean gradient 19mmHg; DVI 0.5 Moderate-severe aortic regurgitation. Recommend FAVIAN, if clinically indicated, to better visualize bioprosthetic valves and assess mechanism of aortic regurgitation. Bioprosthetic mitral valve by history. Mild to moderate stenosis with mean gradient of 8mmHg at 81/min. Mild tricuspid regurgitation. Moderate pulmonary hypertension.Estimated RVSP is 50 mmHg. (7) Urinary tract infection Current Visit: Yes Status: Acute Assessment and Plan: ecoli pansensitive will transition her to omnicef to complete course (8) Diabetes mellitus Current Visit: Yes Status: Acute Assessment and Plan: insulin sliding scale A1c 8.5 adjust per finger sticks (9) Obese Current Visit: Yes Status: Acute Assessment and Plan: Was counseled (10) DVT prophylaxis Current Visit: Yes Status: Acute Assessment and Plan: heparin subcutaneous - Time Spent with Patient Total time spent is greater than 50% in coordination of care (as documented) at patient's floor/unit and/or counseling patient: Internal Medicine: Result - Labs CBC & Chem 7: 08/11/18 01:30 08/11/18 01:30 - ABG Interpretation ABG results: PT/INR, D-dimer PT 12.9 Seconds (9.4-12.1) H 08/10/18 12:42 715 ng/mLFEU (0-500) H 08/10/18 12:42 - Impressions Impressions Echocardiogram 08/11/18 11:27 Impressions: LVEF 60-65%. Indeterminate diastolic function. Normal right ventricular size with mild right ventricular hypokinesis. Moderately dilated left atrium. Bioprosthetic aortic valve replacement noted. Peak aortic velocity 2.96m/s; mean gradient 19mmHg; DVI 0.5 Moderate-severe aortic regurgitation. Recommend FAVIAN, if clinically indicated, to better visualize bioprosthetic valves and assess mechanism of aortic regurgitation. Bioprosthetic mitral valve by history. Mild to moderate stenosis with mean gradient of 8mmHg at 81/min. Mild tricuspid regurgitation. Moderate pulmonary hypertension.Estimated RVSP is 50 mmHg. Left Ventricular Wall Motion: Rest Echo Findings All wall segments showed normal motion. Findings: Study Quality * Technically sub-optimal due to poor echocardiographic windows. ECG Findings * Normal sinus rhythm. Left Ventricle * LVEF 60-65%. * Indeterminate diastolic function. Right Ventricle * Normal right ventricular size with mild right ventricular hypokinesis. * Left Atrium * Moderately dilated left atrium. Right Atrium * Normal right atrial size. Aortic Valve * Bioprosthetic aortic valve replacement noted. Peak aortic velocity is 2.96m/s and mean gradient is 19mmHg. DVI 0.5 * Moderate-severe aortic regurgitation. * Aortic valve not well visualized. Mitral Valve * Bioprosthetic mitral valve by history.Mild to moderate stenosis with mean gradient of 8mmHg at 81/min. * No mitral regurgitation. Tricuspid Valve * Mild tricuspid regurgitation. * Moderate pulmonary hypertension.Estimated RVSP is 50 mmHg. * * Estimated RA pressure is 10 mmHg. * Tricuspid valve not well visualized. * No tricuspid stenosis. Pulmonic Valve * Pulmonic valve not well visualized. Aorta * Normally sized aortic root. Pericardium * The pericardium appears normal. IVC * The IVC is dilated. Pulmonary Artery * Pulmonary artery not well visualized. Consult Discharge Plan - Plan Referrals: Ball,Justin Jono, DO [Primary Care Provider] - (2) Aortic regurgitation Qualifiers: Cardiac valve disease etiology: etiology unspecified Qualified Code(s): I35.1 - Nonrheumatic aortic (valve) insufficiency (5) Diastolic heart failure Qualifiers: Heart failure chronicity: chronic Qualified Code(s): I50.32 - Chronic rodriguez tolic (congestive) heart failure (7) Urinary tract infection Qualifiers: Urinary tract infection type: acute cystitis Hematuria presence: with hematuria Qualified Code(s): N30.01 - Acute cystitis with hematuria (8) Diabetes mellitus Qualifiers: Diabetes mellitus type: type 2 Diabetes mellitus safety net maker insulin use: without fci use Diabetes mellitus complication status: without complication Qualified Code(s): E11.9 - Type 2 diabetes mellitus without complications (9) Obese Qualifiers: Obesity type: due to excess calories Body mass index: BMI 31.0-31.9 Qualified Code(s): E66.09 - Other obesity due to excess calories; Z68.31 - Body mass index (BMI) 31.0-31.9, adult
[2018-08-12] MEDS ORDERED: Nystatin POWDER 30 GM BOTTLE TP SCH (11:30)
--- NOTE | 2018-08-12 14:56 | Discharge Summary ---
Date of Encounter: 08/12/18 Time of Encounter: 14:52 - Discharge Diagnosis (1) Acute on chronic respiratory failure with hypoxemia Priority: Primary Status: Acute (2) Aortic regurgitation Priority: Secondary Status: Acute Qualifiers: Cardiac valve disease etiology: etiology unspecified Qualified Code(s): I35.1 - Nonrheumatic aortic (valve) insufficiency (3) Moderate pulmonary arterial systolic hypertension Priority: Secondary Status: Acute (4) CAD (coronary artery disease) Priority: Secondary Status: Acute Qualifiers: Coronary Disease-Associated Artery/Lesion type: [place] artery [place] vs. transplanted heart: [place] heart Associated angina: without angina Qualified Code(s): I25.10 - Atherosclerotic heart disease of [place] coronary artery without angina pectoris (5) Diastolic heart failure Priority: Secondary Status: Acute Qualifiers: Heart failure chronicity: chronic Qualified Code(s): I50.32 - Chronic diastolic (congestive) heart failure (6) H/O heart valve replacement with bioprosthetic valve Priority: Secondary Status: Chronic (7) Urinary tract infection Priority: Secondary Status: Acute Qualifiers: Urinary tract infection type: acute cystitis Hematuria presence: with hematuria Qualified Code(s): N30.01 - Acute cystitis with hematuria (8) Diabetes mellitus Priority: Secondary Status: Acute Qualifiers: Diabetes mellitus type: type 2 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 Hughes is a 68 year old female with history of mitral and aortic valve replacement, CAD, and diastolic heart failure presented to the emergency department with complaint of shortness of breath. As per daughter and patient her shortness of breath started about a week ago and is progressively worsening. She denies shortness of breath at rest however on ambulation she reports she that she gets out of breath more easily as compared to last week. She was that she is compliant with her Lasix however feels as though it is not working as well as it used to. She denies PND or orthopnea or leg swelling. She is had no cough or recent sick contacts. She does use home oxygen it was prescribed to her after her heart surgery and she only uses it at night. She denies shortness of breath at rest. Has had no calf tenderness or swelling and denies any previous blood clots or prolonged immobilization. Shortness of breath is not associated with chest pain or chest tightness. She denies fever, chills, cough, palpitations, nausea, vomiting or diarrhea. She does report that she is more frequently urinating in smaller amounts which has caused her to think that her Lasix is not working she denies pain or foul-s melling urine. On the emergency department CT angiogram of the chest performed which showed no pulmonary embolism and small airway disease. She was also found to have urinary tract infection and was started on IV antibiotics." patient presented with above presentation and had above hospital course. CTPA was performed which was negative for PE, respiratory viral panel and urine antigens were negative. she remained hemodynamically stable. was saturating well at rest. TTE performed to evaluate two prosthetic valves and TTE showed moderate to severe AR and increased PA pressure (full report below). her primary management retail intern office Dr. galvez's conatcted and progress note was obtained from earlier in 2019, as per his progress note " if shortness of breath worsens we will do FAVIAN for better visualization of AV. If perivalvular leak we can do percutaneous feeling, if central severe AR develops we will consider TAPVR and future" his office in [facility] was contacted and hospitalist Dr. clark from that hospital accepted the patient for transfer with cardiology team to consult. patient and family are in agreement with transfer as she has known that she might need to have her valve replaced as she is becoming more symptomatic. risks and benefits of transfer including was discussed with patient and family and they understand and are in agreement for transfer. urine cultures with pansensitive ecoli, was started on IV abx and transitioned to omnicef to finish course. TTE 08/11 LVEF 60-65%. Indeterminate diastolic function. Normal right ventricular size with mild right ventricular hypokinesis. Moderately dilated left atrium. Bioprosthetic aortic valve replacement noted. Peak aortic velocity 2.96m/s; mean gradient 19mmHg; DVI 0.5 Moderate-severe aortic regurgitation. Recommend FAVIAN, if clinically indicated, to better visualize bioprosthetic valves and assess mechanism of aortic regurgitation. Bioprosthetic mitral valve by history. Mild to moderate stenosis with mean gradient of 8mmHg at 81/min. Mild tricuspid regurgitation. Moderate pulmonary hypertension.Estimated RVSP is 50 mmHg. CTA chest:IMPRESSION: 1. No acute pulmonary embolus. 2. Mosaic attenuation of the lung parenchyma, compatible with small airways disease. 3. Cholecystectomy. 4. Replaced aortic and mitral valve. Discharge discussed with: patient, family, nurse, social work, case management, fitness consultant - Time Spent with Patient Total time spent providing and/or coordinating discharge services: Time spent: Greater than 30 minutes (45) - Discharge Medications Prescriptions: New Cefdinir [Omnicef] 300 mg PO BID 3 Days #6 capsule Ipratropium/Albuterol Neb [Duoneb] 3 ml IH Q6HR PRN #14 vial.neb PRN Reason: Dyspnea Continued SitaGLIPtin [Januvia] 100 mg PO DAILY metFORMIN [Glucophage] 1,000 mg PO BIDWM Simvastatin 10 mg PO DAILY Morphine Sulfate/Pf [Morphine IntraThecdal Pump] 1.79 mg IT DAILY Metoprolol [Lopressor] 12.5 mg PO BID Buspirone HCl [Buspar] 10 mg PO BID Potassium Chloride [K-Tab ER] 20 meq PO BID Furosemide [Lasix] 40 mg PO BID Amlodipine Besylate 10 mg PO DAILY Aspirin Enteric Coated [Aspirin EC] 81 mg PO DAILY #30 tablet. Ferrous Sulfate 325 mg PO BIDWM #60 tablet Ascorbic Acid [Vitamin C with Wendy Hips] 1,000 mg PO DAILY Isosorbide MONOnitrate [Isosorbide Mononitrate ER] 30 mg PO DAILY Escitalopram [Lexapro] 5 mg PO DAILY Lantus Solostar 100 unit SQ DAILY Omeprazole [PriLOSEC] 40 mg PO DAILY Trazodone HCl 50 mg PO HS Discontinued Celecoxib [Celebrex] 100 mg PO DAILY Buspirone HCl [Buspar] 10 mg PO BID Home Medications: Simvastatin 10 mg PO DAILY 06/18/15 [History] SitaGLIPtin [Januvia] 100 mg PO DAILY 06/18/15 [History] metFORMIN [Glucophage] 1,000 mg PO BIDWM 06/18/15 [History] Amlodipine Besylate 10 mg PO DAILY 04/25/17 [History] Buspirone HCl [Buspar] 10 mg PO BID 04/25/17 [History] Furosemide [Lasix] 40 mg PO BID 04/25/17 [History] Metoprolol [Lopressor] 12.5 mg PO BID 04/25/17 [History] Morphine Sulfate/Pf [Morphine IntraThecdal Pump] 1.79 mg IT DAILY 04/25/17 [History] Potassium Chloride [K-Tab ER] 20 meq PO BID 04/25/17 [History] Aspirin Enteric Coated [Aspirin EC] 81 mg PO DAILY #30 tablet. 04/28/17 [Rx] Ferrous Sulfate 325 mg PO BIDWM #60 tablet 04/28/17 [Rx] Ascorbic Acid [Vitamin C with Wnedy Hips] 1,000 mg PO DAILY 07/06/17 [History] Escitalopram [Lexapro] 5 mg PO DAILY 08/10/18 [History] Isosorbide MONOnitrate [Isosorbide Mononitrate ER] 30 mg PO DAILY 08/10/18 [History] Lantus Solostar 100 unit SQ DAILY 08/10/18 [History] Omeprazole [PriLOSEC] 40 mg PO DAILY 08/10/18 [History] Trazodone HCl 50 mg PO HS 08/10/18 [History] Cefdinir [Omnicef] 300 mg PO BID 3 Days #6 capsule 08/12/18 [Rx] Ipratropium/Albuterol Neb [Duoneb] 3 ml IH Q6HR PRN #14 vial.neb 08/12/18 [Rx] Allergies/Adverse Reactions: Allergy/AdvReac Type Severity Reaction Status Date / Time Sulfa (Sulfonamide Allergy Swelling Verified 08/10/18 12:30 Antibiotics) of Lip/Tongue/Throat Date of admission: 08/10/18 16:17 Primary care physician: Justin Chua, DO Consults: 08/10/18 15:56 Consult to Case Management [CONS] Routine Comment: Consult to Physical Therapy [CONS] Routine Comment: Evaluate, develop and implement POC Reason for Consult: dispostion Does patient have active BEDREST order?: No Is patient medically & hemodynamically stable?: Yes Patient assessed for mobility or mobilized this visit?: Yes OT [Consult to Occupational Therapy] [CONS] Routine Comment: Evaluate, develop and implement POC Reason for Consult: disposition Does patient have active BEDREST order?: No Is patient medically & hemodynamically stable?: Yes Patient assessed for mobility or mobilized this visit?: Yes - Constitutional Vitals: Temp Pulse Resp BP Pulse Ox 98.0 F 70 16 126/56 92 08/12/18 11:30 08/12/18 11:30 08/12/18 11:30 08/12/18 11:30 08/12/18 11:30 Exam: General: Patient is alert, oriented, no acute distress, speaks in full sentences Head: atraumatic, normocephalic, Eye: normal appearance, PERRL, no scleral icterus, no conjunctival injection ENT: mucous membranes moist, normal external ear exam Neck: normal inspection, trachea midline, full ROM, no carotid bruits Chest: normal inspection, symmetric chest rise Respiratory: Good respiratory effort. Bilateral breath sounds are clear without wheezing, crackles, or rhonchi. Cardiovascular: Regular rate and rhythm. s1 and s2 No clicks, rubs, gallops, systolic murmur in the apex Abdomen: Bowel sounds present normoactive x-4 quadrants. Abdomen is soft, nondistended. no Epigastric tenderness. No guarding or rebound. No organomegaly noted, obese musculoskeletal: Spontaneously moving all extremities. no edema, no calf tenderness Skin: warm, dry, intact. Has extensive varicose veins of the lower extremities Neuro: Alert and oriented x3 no focal deficit Psych: Patient's affect is normal - Patient Status Disposition: Transfer Critical Access Hosp Condition: Good Functional capacity at discharge: independent ambulation Overall status at discharge: patient is not back to baseline - Discharge Instructions Follow Up With: Aaron Patton MD [Partnered Physician] - Justin Chua DO [Primary Care Provider] - - Diet and Activity Activity: wear oxygen at night Diet: diabetic diet (cardiac )
[2018-08-12 16:02] VITALS: BP 129/88
[2018-08-12] MEDS ORDERED: Furosemide 40 MG TABLET PO SCH (17:00)
[2018-08-12] MEDS ORDERED: Cefdinir 300 MG CAPSULE PO SCH (21:00)
== END 2018-08-12 17:47 | disposition critical access hospital (66) ==
LOC: 2NENU 12:28 → EMEROOARM 12:28 → 2NENU 16:48
PROVIDERS: ADMIT Internal Medicine Nephrology; ATTEND Internal Medicine Nephrology

== ENCOUNTER 2018-12-24 10:21 | Inpatient (IN) ==
[~2018-12-24 10:21] MED LIST: Bacitracin 50,000 UNIT, Polymyxin B Sulfate 500,000 UNIT, Sodium Chloride IRRigation 1,... IR ONE
[2018-12-24] MEDS ORDERED: CeFAZolin Syr 2,000MG/20 ML 2,000 MG/20 ML SYRINGE IVPB ONE (11:11)
[2018-12-24] MEDS ORDERED: Ringers Solution, Lactated 1,000 ML IVC SCH (11:15)
[2018-12-24] MEDS ORDERED: *HR* OxyCODONE Immed Rel 5 MG TABLET PO PRN (11:49)
[2018-12-24] MEDS ORDERED: Acetaminophen IV 1,000 MG/100 ML INFUS..BTL IVPB ONE (11:49)
[2018-12-24] MEDS ORDERED: Ondansetron ODT 4 MG TAB.RAPDIS SL ONE (11:49)
[2018-12-24] MEDS ORDERED: *HR* HYDROmorphone (PF) 1 MG/ML SYRINGE IVP PRN (11:49)
[2018-12-24] MEDS ORDERED: Bupivacaine/EPI 1:200k 0.25%PF 30 ML VIAL ONE (11:57)
[2018-12-24] MEDS ORDERED: Lidocaine/EPI 1:100k 2% 20 ML VIAL ONE (11:57)
[2018-12-24] MEDS ORDERED: Vancomycin 1,000 MG VIAL ONE (11:58)
[2018-12-24] MEDS ORDERED: Ringers Solution, Lactated 500 ML IVC SCH (12:00)
[2018-12-24] MEDS ORDERED: Dexamethasone 4 MG/ML VIAL ONE (17:33)
[2018-12-24] MEDS ORDERED: Ondansetron 4 MG/2 ML VIAL ONE (17:33)
[2018-12-24] MEDS ORDERED: Ondansetron 4 MG/2 ML VIAL IVP ONE ×2 (18:35→19:51)
[2018-12-24] MEDS ORDERED: *HR* Labetalol 20 MG/4 ML SYRINGE IVP PRN (18:35)
[2018-12-24] MEDS ORDERED: *HR* Labetalol 20 MG/4 ML SYRINGE IVP ONE (18:37)
[2018-12-24] MEDS ORDERED: [UNRECOGNIZED DRUG - OTHER] IT SCH (19:51)
[2018-12-24] MEDS ORDERED: *HR* OxyCODONE/APAP 5/325 TABLET PO PRN (19:51)
[2018-12-24] MEDS ORDERED: Nitroglycerin 0.4 MG TAB.SUBL SL PRN (19:51)
[2018-12-24] MEDS: Furosemide 40 MG TABLET PO SCH (21:26)
[2018-12-25] MEDS ORDERED: Lidocaine -MPF 2% 2 ML VIAL ONE (07:29)
[2018-12-25] MEDS ORDERED: *HR* FentaNYL (PF) 100 MCG/2 ML VIAL ONE (07:29)
[2018-12-25] MEDS ORDERED: *HR* Succinylcholine 200 MG/10 ML VIAL IVP ONE (07:29)
[2018-12-25] MEDS ORDERED: *HR* Midazolam HCl 2 MG/2 ML VIAL ONE (07:29)
[2018-12-25] MEDS ORDERED: *HR* Propofol 200 MG/20 ML VIAL IVP ONE (07:29)
[2018-12-25] MEDS: amLODIPine 5 MG TABLET PO SCH (07:58)
[2018-12-25] MEDS: Isosorbide MONOnitrate (24 HR) 30 MG TAB.ER.24H PO SCH (07:58)
[2018-12-25] MEDS: *HR* Metformin 500 MG TABLET PO SCH ×2 (07:58→18:08)
[2018-12-25] MEDS: Furosemide 40 MG TABLET PO SCH ×2 (07:59→18:08)
[2018-12-25] MEDS ORDERED: *HR* SitaGLIPtin 100 MG TABLET PO SCH (09:00)
[2018-12-25 16:55] LABS: Bilirubin,Urine Negative (Negative); Blood,Urine Negative (Negative); Clarity,Urine Clear (Clear); Color,Urine Yellow (Yellow); Glucose,Urine (UA) Normal (Normal); Ketones,Urine Trace mg/dL (Negative); Leukocyte Esterase,Urine Negative (Negative); Nitrite,Urine Negative (Negative); PH,Urine 6.5 pH Units (5.0-8.0); Protein,Urine Negative (Neg-Trace); Urobilinogen,Urine Normal (Normal)
[2018-12-25 18:24] LABS: Basophils % 0.1 %; Eosinophils % 0.1 %; Hematocrit 40.8 % (35.3-44.9); Hemoglobin 13.5 g/dL (11.5-15.4); Immature Granulocytes % 0.2 % (0-4); Lymphocytes # 1.3 K/mcL (0.6-4.6); Lymphocytes % 15.3 %; Mean Corpuscular HGB Conc 33.1 g/dL (31.6-35.5); Mean Corpuscular Hemoglobin 27.6 pg (28.0-33.3); Mean Corpuscular Volume 83.4 fL (83.0-100.0); Mean Platelet Volume 9.8 fL (9.4-12.4); Monocytes # 0.5 K/mcL (0.0-1.3); Monocytes % 5.7 %; Neutrophils # 6.8 K/mcL (1.6-8.9); Platelet Count 238 K/mcL (140-400); Red Blood Count 4.89 M/mcL (3.82-4.97); Red Cell Distribution Width 14.5 % (11.5-14.5); Segmented Neutrophils % 78.6 %; White Blood Count 8.7 K/mcL (4.3-11.1)
[2018-12-25 19:22] LABS: Alanine Aminotransferase 11 Units/L (7-52); Albumin 4.6 g/dL (3.5-5.7); Albumin/Globulin Ratio 1.2 (1.1-2.2); Alkaline Phosphatase 85 Units/L (34-104); Aspartate Amino Transferase 17 Units/L (13-39); BUN/Creatinine Ratio 17 (6-26); Bilirubin,Direct 0.1 mg/dL (0.0-0.2); Bilirubin,Total 0.6 mg/dL (0.3-1.0); Blood Urea Nitrogen 16 mg/dL (8-23); Calcium 9.6 mg/dL (8.6-10.3); Carbon Dioxide 29 mEq/L (23-29); Chloride 96 mEq/L (98-107); Globulin 3.8 g/dL (2.4-3.5); Glucose 220 mg/dL (70-105); Osmolality,Calculated 292 (280-300); Potassium 3.7 mEq/L (3.5-5.1); Sodium 137 mEq/L (136-145); Total Protein 8.4 g/dL (6.4-8.9); eGFR For African Americans > 60 (> 60); eGFR For Non-African Americans > 60 (> 60)
[2018-12-25] MEDS ORDERED: D5% in Water 1,000 ML IVC PRN (19:34)
[2018-12-25] MEDS ORDERED: *HR* Dextrose 50 % in Water (Syg) 50 ML SYRINGE IVP PRN (19:34)
[2018-12-25] MEDS ORDERED: Dextrose Gel 15 GM/37.5 ML TUBE PO PRN ×2 (19:34)
[2018-12-25] MEDS ORDERED: *HR* Promethazine 25 MG/ML VIAL IVP ONE (19:52)
[2018-12-25] MEDS ORDERED: *HR* Metoprolol 5 MG/5 ML VIAL IVP ONE (20:43)
[2018-12-25] MEDS ORDERED: Acetaminophen IV 1,000 MG/100 ML INFUS..BTL IVPB ONE (20:52)
[2018-12-25] MEDS: Insulin LISPRO 300 UNITS/3 ML VIAL SQ SCH ×2 (20:57→21:20)
[2018-12-25] MEDS: *HR* Heparin 5,000 UNIT/ML VIAL SQ SCH (21:20)
[2018-12-25] MEDS ORDERED: Haloperidol Lactate 5 MG/ML VIAL IVP ONE (22:44)
[2018-12-26] MEDS ORDERED: tiZANidine 4 MG TABLET PO ONE (04:04)
[2018-12-26] MEDS: *HR* Heparin 5,000 UNIT/ML VIAL SQ SCH ×3 (04:48→21:28)
[2018-12-26 07:21] LABS: Basophils % 0.4 %; Eosinophils % 0.1 %; Hematocrit 44.7 % (35.3-44.9); Immature Granulocytes % 0.4 % (0-4); Lymphocytes # 1.7 K/mcL (0.6-4.6); Mean Corpuscular Hemoglobin 27.7 pg (28.0-33.3); Mean Corpuscular Volume 81.4 fL (83.0-100.0); Mean Platelet Volume 9.5 fL (9.4-12.4); Monocytes # 0.7 K/mcL (0.0-1.3); Neutrophils # 7.9 K/mcL (1.6-8.9); Platelet Count 286 K/mcL (140-400); Red Blood Count 5.49 M/mcL (3.82-4.97); Red Cell Distribution Width 14.6 % (11.5-14.5); Segmented Neutrophils % 76.1 %; White Blood Count 10.4 K/mcL (4.3-11.1)
[2018-12-26 07:40] LABS: BUN/Creatinine Ratio 22 (6-26); Blood Urea Nitrogen 21 mg/dL (8-23); Calcium 9.8 mg/dL (8.6-10.3); Carbon Dioxide 31 mEq/L (23-29); Chloride 93 mEq/L (98-107); Glucose 272 mg/dL (70-105); Osmolality,Calculated 297 (280-300); Potassium 3.6 mEq/L (3.5-5.1); Sodium 137 mEq/L (136-145); eGFR For African Americans > 60 (> 60); eGFR For Non-African Americans 58 (> 60)
[2018-12-26 07:44] LABS: Hemoglobin 15.2 g/dL (11.5-15.4)
[2018-12-26] MEDS: Furosemide 40 MG TABLET PO SCH ×2 (08:24→17:15)
[2018-12-26] MEDS: Isosorbide MONOnitrate (24 HR) 30 MG TAB.ER.24H PO SCH (08:24)
[2018-12-26] MEDS: amLODIPine 5 MG TABLET PO SCH (08:24)
[2018-12-26] MEDS: Aspirin Enteric Coated 81 MG Tablet PO SCH (08:24)
[2018-12-26] MEDS: Insulin LISPRO 300 UNITS/3 ML VIAL SQ SCH ×4 (08:24→21:26)
[2018-12-26] MEDS ORDERED: Ringers Solution, Lactated 1,000 ML IVC SCH (11:00)
[2018-12-26] MEDS ORDERED: Ringers Solution, Lactated 500 ML IVC ONE (14:17)
[2018-12-26] MEDS ORDERED: Isovue-370 500 ML BOTTLE IVP ONE (16:57)
[2018-12-26] MEDS ORDERED: traZODone 50 MG TABLET PO SCH (21:00)
[2018-12-27] MEDS: *HR* Heparin 5,000 UNIT/ML VIAL SQ SCH ×3 (05:01→21:54)
[2018-12-27 06:42] LABS: Basophils # 0.1 K/mcL (0.0-0.2); Basophils % 0.5 %; Hematocrit 49.1 % (35.3-44.9); Hemoglobin 16.6 g/dL (11.5-15.4); Immature Granulocytes % 0.4 % (0-4); Lymphocytes # 1.9 K/mcL (0.6-4.6); Mean Corpuscular HGB Conc 33.8 g/dL (31.6-35.5); Mean Corpuscular Volume 82.8 fL (83.0-100.0); Mean Platelet Volume 9.6 fL (9.4-12.4); Monocytes # 0.9 K/mcL (0.0-1.3); Monocytes % 8.3 %; Neutrophils # 7.8 K/mcL (1.6-8.9); Platelet Count 323 K/mcL (140-400); Red Blood Count 5.93 M/mcL (3.82-4.97); Segmented Neutrophils % 72.8 %; White Blood Count 10.8 K/mcL (4.3-11.1)
[2018-12-27 06:59] LABS: BUN/Creatinine Ratio 25 (6-26); Blood Urea Nitrogen 22 mg/dL (8-23); Calcium 10.1 mg/dL (8.6-10.3); Carbon Dioxide 29 mEq/L (23-29); Chloride 92 mEq/L (98-107); Glucose 296 mg/dL (70-105); Osmolality,Calculated 296 (280-300); Potassium 3.3 mEq/L (3.5-5.1); Sodium 136 mEq/L (136-145); eGFR For African Americans > 60 (> 60); eGFR For Non-African Americans > 60 (> 60)
[2018-12-27] MEDS: Aspirin Enteric Coated 81 MG Tablet PO SCH (08:56)
[2018-12-27] MEDS: Furosemide 40 MG TABLET PO SCH ×2 (08:56→16:45)
[2018-12-27] MEDS: Isosorbide MONOnitrate (24 HR) 30 MG TAB.ER.24H PO SCH (08:56)
[2018-12-27] MEDS: Insulin LISPRO 300 UNITS/3 ML VIAL SQ SCH ×4 (08:57→21:55)
[2018-12-27] MEDS: amLODIPine 5 MG TABLET PO SCH (08:57)
[2018-12-27 16:01] LABS: ABG Base Excess 8 mEq/L (-2 to 3); ABG HCO3 32 mEq/L (21-27); ABG Oxygen Saturation 98 % (95-98); ABG PCO2 40 mmHg (35-45); ABG PH 7.51 pH Units (7.32-7.45); ABG PO2 94 mmHg (85-104); ABG TCO2 33 mEq/L (20-26)
[2018-12-27] MEDS ORDERED: 0.9 % Sodium Chloride w KCl 40 MEQ/1,000 ML MLS IVC SCH (17:00)
[2018-12-27 17:37] LABS: Magnesium 2.2 mg/dL (1.6-2.6)
[2018-12-27] MEDS: Insulin DETEMIR 100 UNIT/ML X5UNITS SQ SCH (22:28)
[2018-12-28] MEDS: *HR* Heparin 5,000 UNIT/ML VIAL SQ SCH ×3 (04:53→21:39)
[2018-12-28 07:14] LABS: Basophils % 0.4 %; Eosinophils % 0.2 %; Hematocrit 48.6 % (35.3-44.9); Hemoglobin 16.1 g/dL (11.5-15.4); Immature Granulocytes % 0.3 % (0-4); Lymphocytes # 2.5 K/mcL (0.6-4.6); Lymphocytes % 26.5 %; Mean Corpuscular HGB Conc 33.1 g/dL (31.6-35.5); Mean Corpuscular Hemoglobin 27.8 pg (28.0-33.3); Mean Corpuscular Volume 83.9 fL (83.0-100.0); Mean Platelet Volume 9.5 fL (9.4-12.4); Monocytes # 0.8 K/mcL (0.0-1.3); Monocytes % 8.7 %; Neutrophils # 6.1 K/mcL (1.6-8.9); Platelet Count 290 K/mcL (140-400); Red Blood Count 5.79 M/mcL (3.82-4.97); Segmented Neutrophils % 63.9 %; White Blood Count 9.5 K/mcL (4.3-11.1)
[2018-12-28] MEDS ORDERED: GI Cocktail 40 ML EACH ONE (18:04)
[2018-12-28 20:14] LABS: BUN/Creatinine Ratio 29 (6-26); Blood Urea Nitrogen 26 mg/dL (8-23); Calcium 9.5 mg/dL (8.6-10.3); Carbon Dioxide 32 mEq/L (23-29); Chloride 95 mEq/L (98-107); Glucose 278 mg/dL (70-105); Osmolality,Calculated 297 (280-300); Potassium 3.8 mEq/L (3.5-5.1); Sodium 136 mEq/L (136-145); eGFR For African Americans > 60 (> 60); eGFR For Non-African Americans > 60 (> 60)
[2018-12-28] MEDS: Sennosides/Docusate Sodium TABLET PO SCH ×2 (20:24→20:26)
[2018-12-28] MEDS: Insulin LISPRO 300 UNITS/3 ML VIAL SQ SCH ×3 (20:25→21:38)
[2018-12-28] MEDS: Furosemide 40 MG TABLET PO SCH ×2 (20:25→20:27)
[2018-12-28] MEDS: amLODIPine 5 MG TABLET PO SCH (20:26)
[2018-12-28] MEDS: Isosorbide MONOnitrate (24 HR) 30 MG TAB.ER.24H PO SCH (20:26)
[2018-12-28] MEDS: Aspirin Enteric Coated 81 MG Tablet PO SCH (20:26)
[2018-12-28] MEDS: Insulin DETEMIR 100 UNIT/ML X5UNITS SQ SCH (21:40)
[2018-12-28] MEDS ORDERED: Acetaminophen 325 MG TABLET PO ONE (23:13)
[2018-12-29] MEDS: *HR* Heparin 5,000 UNIT/ML VIAL SQ SCH ×3 (04:54→21:44)
[2018-12-29] MEDS ORDERED: Acetaminophen 325 MG TABLET PO ONE (06:26)
[2018-12-29] MEDS: amLODIPine 5 MG TABLET PO SCH (11:04)
[2018-12-29] MEDS: Aspirin Enteric Coated 81 MG Tablet PO SCH (11:04)
[2018-12-29] MEDS: Sennosides/Docusate Sodium TABLET PO SCH (11:04)
[2018-12-29] MEDS: Isosorbide MONOnitrate (24 HR) 30 MG TAB.ER.24H PO SCH (11:04)
[2018-12-29] MEDS: Insulin LISPRO 300 UNITS/3 ML VIAL SQ SCH ×4 (11:04→21:44)
[2018-12-29] MEDS: Furosemide 40 MG TABLET PO SCH ×2 (11:04→17:47)
[2018-12-29 13:14] LABS: Basophils % 0.4 %; Eosinophils % 0.4 %; Hematocrit 43.3 % (35.3-44.9); Hemoglobin 14.2 g/dL (11.5-15.4); Immature Granulocytes % 0.1 % (0-4); Lymphocytes # 1.8 K/mcL (0.6-4.6); Lymphocytes % 24.3 %; Mean Corpuscular HGB Conc 32.8 g/dL (31.6-35.5); Mean Corpuscular Volume 85.2 fL (83.0-100.0); Mean Platelet Volume 10.4 fL (9.4-12.4); Monocytes # 0.6 K/mcL (0.0-1.3); Monocytes % 7.7 %; Neutrophils # 4.9 K/mcL (1.6-8.9); Platelet Count 235 K/mcL (140-400); Red Blood Count 5.08 M/mcL (3.82-4.97); Red Cell Distribution Width 14.9 % (11.5-14.5); Segmented Neutrophils % 67.1 %; White Blood Count 7.3 K/mcL (4.3-11.1)
[2018-12-29] MEDS ORDERED: Acetaminophen 325 MG TABLET PO PRN (13:16)
[2018-12-29 13:33] LABS: BUN/Creatinine Ratio 30 (6-26); Blood Urea Nitrogen 24 mg/dL (8-23); Calcium 9.3 mg/dL (8.6-10.3); Carbon Dioxide 28 mEq/L (23-29); Chloride 97 mEq/L (98-107); Glucose 379 mg/dL (70-105); Osmolality,Calculated 296 (280-300); Potassium 3.9 mEq/L (3.5-5.1); Sodium 133 mEq/L (136-145); eGFR For African Americans > 60 (> 60); eGFR For Non-African Americans > 60 (> 60)
[2018-12-29] MEDS: Acetaminophen 325 MG TABLET PO SCH ×3 (17:47→23:47)
[2018-12-29 18:08] LABS: Bilirubin,Urine Negative (Negative); Blood,Urine Negative (Negative); Clarity,Urine Clear (Clear); Color,Urine Yellow (Yellow); Glucose,Urine (UA) 250 mg/dL (Normal); Ketones,Urine Negative (Negative); Leukocyte Esterase,Urine Small (Negative); Nitrite,Urine Negative (Negative); PH,Urine 6.5 pH Units (5.0-8.0); Protein,Urine 30 mg/dL (Neg-Trace); Specific Gravity,Urine 1.018 (1.010-1.025); Urobilinogen,Urine Normal (Normal)
[2018-12-29 18:11] LABS: Bacteria,Urine None Seen per hpf (None-Few); Hyaline Casts,Urine None Seen per lpf (None-Few); RBC,Urine 0-3 per hpf (0-3); Squamous Epithelial Cell,Urine Moderate per lpf (None-Few)
[2018-12-29] MEDS: Insulin DETEMIR 100 UNIT/ML X5UNITS SQ SCH (21:43)
[2018-12-30] MEDS: *HR* Heparin 5,000 UNIT/ML VIAL SQ SCH ×3 (05:02→22:09)
[2018-12-30] MEDS: Acetaminophen 325 MG TABLET PO SCH ×4 (05:02→23:12)
[2018-12-30] MEDS: Sennosides/Docusate Sodium TABLET PO SCH (08:42)
[2018-12-30] MEDS: Furosemide 40 MG TABLET PO SCH ×2 (08:42→18:49)
[2018-12-30] MEDS: amLODIPine 5 MG TABLET PO SCH (08:42)
[2018-12-30] MEDS: Isosorbide MONOnitrate (24 HR) 30 MG TAB.ER.24H PO SCH (08:42)
[2018-12-30] MEDS: Aspirin Enteric Coated 81 MG Tablet PO SCH (08:42)
[2018-12-30] MEDS: Insulin LISPRO 300 UNITS/3 ML VIAL SQ SCH ×4 (08:42→22:09)
[2018-12-30] MEDS: cephALEXin 500 MG CAPSULE PO SCH ×2 (15:06→20:27)
[2018-12-30] MEDS: Insulin DETEMIR 100 UNIT/ML X5UNITS SQ SCH (20:27)
[2018-12-31] MEDS: *HR* Heparin 5,000 UNIT/ML VIAL SQ SCH ×2 (04:58→15:37)
[2018-12-31] MEDS: Acetaminophen 325 MG TABLET PO SCH ×2 (04:58→12:22)
[2018-12-31] MEDS ORDERED: Insulin LISPRO 300 UNITS/3 ML VIAL SQ SCH ×2 (07:00→07:10)
[2018-12-31 07:18] LABS: Basophils % 0.5 %; Eosinophils # 0.1 K/mcL (0.0-0.6); Eosinophils % 1.9 %; Hematocrit 41.1 % (35.3-44.9); Hemoglobin 13.3 g/dL (11.5-15.4); Immature Granulocytes % 0.3 % (0-4); Lymphocytes # 2.3 K/mcL (0.6-4.6); Lymphocytes % 35.4 %; Mean Corpuscular HGB Conc 32.4 g/dL (31.6-35.5); Mean Corpuscular Hemoglobin 27.8 pg (28.0-33.3); Mean Corpuscular Volume 85.8 fL (83.0-100.0); Mean Platelet Volume 9.7 fL (9.4-12.4); Monocytes # 0.5 K/mcL (0.0-1.3); Monocytes % 7.7 %; Neutrophils # 3.5 K/mcL (1.6-8.9); Platelet Count 204 K/mcL (140-400); Red Blood Count 4.79 M/mcL (3.82-4.97); Red Cell Distribution Width 14.6 % (11.5-14.5); Segmented Neutrophils % 54.2 %; White Blood Count 6.4 K/mcL (4.3-11.1)
[2018-12-31] MEDS: Insulin LISPRO 300 UNITS/3 ML VIAL SQ SCH ×2 (08:01→12:21)
[2018-12-31] MEDS: Isosorbide MONOnitrate (24 HR) 30 MG TAB.ER.24H PO SCH (08:02)
[2018-12-31] MEDS: Aspirin Enteric Coated 81 MG Tablet PO SCH (08:02)
[2018-12-31] MEDS: Sennosides/Docusate Sodium TABLET PO SCH (08:02)
[2018-12-31] MEDS: Furosemide 40 MG TABLET PO SCH (08:02)
[2018-12-31] MEDS: cephALEXin 500 MG CAPSULE PO SCH (08:02)
[2018-12-31] MEDS: amLODIPine 5 MG TABLET PO SCH (08:02)
[2018-12-31 08:15] LABS: BUN/Creatinine Ratio 27 (6-26); Blood Urea Nitrogen 21 mg/dL (8-23); Calcium 9.5 mg/dL (8.6-10.3); Carbon Dioxide 26 mEq/L (23-29); Chloride 99 mEq/L (98-107); Glucose 239 mg/dL (70-105); Osmolality,Calculated 293 (280-300); Potassium 3.9 mEq/L (3.5-5.1); Sodium 136 mEq/L (136-145); eGFR For African Americans > 60 (> 60); eGFR For Non-African Americans > 60 (> 60)
[2018-12-31] MEDS ORDERED: FLU Vac QV 19-20 (6Month+)/PF 0.5 ML SYRINGE IM ONE (14:42)
[2018-12-31 15:34] VITALS: BP 133/73
== END 2018-12-31 16:25 | disposition other institution (70) | DRG 40 ==
LOC: 3ANU 10:21 → SAMDAY 10:21 → 3ANU 19:42
PROVIDERS: ADMIT Anesthesiology Pain Medicine; ATTEND Internal Medicine

== ENCOUNTER 2019-05-13 09:31 | Observation (INO) ==
[2019-05-13 10:39] LABS: Alanine Aminotransferase 9 Units/L (7-52); Albumin 4.4 g/dL (3.5-5.7); Albumin/Globulin Ratio 1.3 (1.1-2.2); Alkaline Phosphatase 90 Units/L (34-104); Aspartate Amino Transferase 13 Units/L (13-39); BUN/Creatinine Ratio 24 (6-26); Bilirubin,Total 0.4 mg/dL (0.3-1.0); Blood Urea Nitrogen 24 mg/dL (8-23); Calcium 9.9 mg/dL (8.6-10.3); Carbon Dioxide 24 mEq/L (23-29); Chloride 101 mEq/L (98-107); Globulin 3.5 g/dL (2.4-3.5); Glucose 253 mg/dL (70-105); Osmolality,Calculated 291 (280-300); Potassium 4.3 mEq/L (3.5-5.1); Sodium 134 mEq/L (136-145); Total Protein 7.9 g/dL (6.4-8.9); eGFR For African Americans > 60 (> 60); eGFR For Non-African Americans 54 (> 60)
[2019-05-13 11:24] LABS: Basophils % 0.1 %; Eosinophils % 0.2 %; Hematocrit 34.8 % (35.3-44.9); Hemoglobin 11.5 g/dL (11.5-15.4); Immature Granulocytes % 0.4 % (0-4); Lymphocytes # 1.2 K/mcL (0.6-4.6); Lymphocytes % 10.1 %; Mean Corpuscular Hemoglobin 29.6 pg (28.0-33.3); Mean Corpuscular Volume 89.5 fL (83.0-100.0); Mean Platelet Volume 9.8 fL (9.4-12.4); Monocytes # 0.5 K/mcL (0.0-1.3); Monocytes % 4.5 %; Neutrophils # 9.7 K/mcL (1.6-8.9); Platelet Count 202 K/mcL (140-400); Red Blood Count 3.89 M/mcL (3.82-4.97); Red Cell Distribution Width 12.9 % (11.5-14.5); Segmented Neutrophils % 84.7 %; White Blood Count 11.5 K/mcL (4.3-11.1)
[2019-05-13 12:15] LABS: White Blood Count 11.1 K/mcL (4.3-11.1)
[2019-05-13 12:16] LABS: Basophils % 0.2 %; Eosinophils % 0.1 %; Hematocrit 36.2 % (35.3-44.9); Hemoglobin 11.7 g/dL (11.5-15.4); Immature Granulocytes % 0.4 % (0-4); Lymphocytes # 1.2 K/mcL (0.6-4.6); Lymphocytes % 10.6 %; Mean Corpuscular HGB Conc 32.3 g/dL (31.6-35.5); Mean Corpuscular Hemoglobin 28.7 pg (28.0-33.3); Mean Corpuscular Volume 88.9 fL (83.0-100.0); Mean Platelet Volume 9.9 fL (9.4-12.4); Monocytes # 0.5 K/mcL (0.0-1.3); Monocytes % 4.2 %; Neutrophils # 9.4 K/mcL (1.6-8.9); Platelet Count 202 K/mcL (140-400); Red Blood Count 4.07 M/mcL (3.82-4.97); Red Cell Distribution Width 12.7 % (11.5-14.5); Segmented Neutrophils % 84.5 %
[2019-05-13] MEDS ORDERED: cefTRIAXone 1,000 MG in Water for inj. (sterile) 10 ML IVP ONE (12:32)
[2019-05-13 12:56] LABS: Bilirubin,Urine Negative (Negative); Blood,Urine Negative (Negative); Clarity,Urine Clear (Clear); Color,Urine Yellow (Yellow); Glucose,Urine (UA) 250 mg/dL (Normal); Ketones,Urine 15 mg/dL (Negative); Leukocyte Esterase,Urine Negative (Negative); Nitrite,Urine Negative (Negative); Protein,Urine 30 mg/dL (Neg-Trace); Specific Gravity,Urine 1.018 (1.010-1.025); Urobilinogen,Urine Normal (Normal)
[2019-05-13 12:57] LABS: Bacteria,Urine None Seen per hpf (None-Few); Hyaline Casts,Urine None Seen per lpf (None-Few); RBC,Urine 0-3 per hpf (0-3); Squamous Epithelial Cell,Urine Few per lpf (None-Few); WBC,Urine 0-3 per hpf (0-3)
[2019-05-13] MEDS ORDERED: *HR* Promethazine 25 MG/ML VIAL IVP PRN (14:27)
[2019-05-13] MEDS ORDERED: Ondansetron 4 MG/2 ML VIAL IVP PRN (14:27)
[2019-05-13] MEDS ORDERED: Mag Hydrox/Al Hydrox/Simeth 30 ML UDC PO PRN (14:27)
[2019-05-13] MEDS ORDERED: Acetaminophen 325 MG TABLET PO PRN (14:27)
[2019-05-13] MEDS ORDERED: MOM Conc 10 ML UD.LIQ PO PRN (14:27)
[2019-05-13] MEDS ORDERED: Naloxone 0.4 MG/ML INJ IVP PRN (14:27)
[2019-05-13] MEDS ORDERED: Dextrose Gel 15 GM/37.5 ML TUBE PO PRN ×2 (14:34)
[2019-05-13] MEDS ORDERED: D5% in Water 1,000 ML IVC PRN (14:34)
[2019-05-13] MEDS ORDERED: *HR* Dextrose 50 % in Water (Syg) 50 ML SYRINGE IVP PRN (14:34)
[2019-05-13] MEDS: Insulin LISPRO 300 UNITS/3 ML VIAL SQ SCH (15:51)
[2019-05-13] MEDS: *HR* Heparin 5,000 UNIT/ML VIAL SQ SCH (16:50)
[2019-05-13] MEDS ORDERED: Insulin LISPRO 300 UNITS/3 ML VIAL SQ SCH (21:00)
[2019-05-14 05:42] LABS: Basophils % 0.3 %; Eosinophils % 0.3 %; Hematocrit 32.8 % (35.3-44.9); Hemoglobin 11.1 g/dL (11.5-15.4); Immature Granulocytes % 0.5 % (0-4); Lymphocytes # 1.5 K/mcL (0.6-4.6); Lymphocytes % 15.9 %; Mean Corpuscular HGB Conc 33.8 g/dL (31.6-35.5); Mean Corpuscular Hemoglobin 29.9 pg (28.0-33.3); Mean Corpuscular Volume 88.4 fL (83.0-100.0); Mean Platelet Volume 9.7 fL (9.4-12.4); Monocytes # 0.6 K/mcL (0.0-1.3); Monocytes % 6.6 %; Platelet Count 221 K/mcL (140-400); Red Blood Count 3.71 M/mcL (3.82-4.97); Red Cell Distribution Width 12.7 % (11.5-14.5); Segmented Neutrophils % 76.4 %; White Blood Count 9.2 K/mcL (4.3-11.1)
[2019-05-14] MEDS: *HR* Heparin 5,000 UNIT/ML VIAL SQ SCH (05:50)
[2019-05-14 06:06] LABS: BUN/Creatinine Ratio 16 (6-26); Blood Urea Nitrogen 13 mg/dL (8-23); Calcium 9.9 mg/dL (8.6-10.3); Carbon Dioxide 24 mEq/L (23-29); Chloride 102 mEq/L (98-107); Glucose 276 mg/dL (70-105); Osmolality,Calculated 294 (280-300); Potassium 3.5 mEq/L (3.5-5.1); Sodium 137 mEq/L (136-145); eGFR For African Americans > 60 (> 60); eGFR For Non-African Americans > 60 (> 60)
[2019-05-14] MEDS: Insulin LISPRO 300 UNITS/3 ML VIAL SQ SCH ×2 (08:54→11:32)
[2019-05-14] MEDS ORDERED: amLODIPine 5 MG TABLET PO SCH (09:00)
[2019-05-14] MEDS ORDERED: Isosorbide MONOnitrate (24 HR) 30 MG TAB.ER.24H PO SCH (09:00)
[2019-05-14] MEDS ORDERED: Furosemide 40 MG TABLET PO SCH (09:00)
[2019-05-14] MEDS ORDERED: Aspirin Enteric Coated 81 MG Tablet PO SCH (09:00)
[2019-05-14] MEDS ORDERED: Celecoxib 200 MG CAPSULE PO SCH (09:00)
[2019-05-14 15:05] VITALS: BP 156/73
[2019-05-14] MEDS ORDERED: traZODone 50 MG TABLET PO SCH (21:00)
== END 2019-05-14 15:45 | disposition home health service (06) ==
LOC: EMEROOARM 09:31 → 3BNU 09:31
PROVIDERS: ADMIT Internal Medicine; ATTEND Internal Medicine